=== PATIENT | female | born 1985 | race Caucasian/White ===

== ENCOUNTER 2023-04-30 09:03 | Emergency (ER) | payer OTHER, SELFPAY ==
[2023-04-30 09:09] VITALS: BP 135/97; PULSE 86; RESP 18; TEMP 36.6; O2SAT 97; BMI 37.3
--- NOTE | 2023-04-30 09:18 | XR_ITS ---
[facility] [id number] Patient Name: FITZ CASTRO MRN: [id number] date: 1985 Sex: F Assigned Patient Location: ER Current Patient Location: ED.MAIN Accession/Order Number: [id number] Exam Date: 04/30/2023 09:29 Report Date: 04/30/2023 09:57 At the request of: CARIDAD RAMIRES Procedure: XR forearm LT 2V PROCEDURE: XR elbow LT min 3V, XR forearm LT 2V COMPARISON: None. HISTORY: pain, fall FINDINGS: BONES:No fracture, acute abnormality, or significant arthropathy of the elbow or forearm. SOFT TISSUES:Anterior forearm and elbow soft tissue swelling EFFUSION:None visible. OTHER: Negative. XR/XR forearm LT 2V IMPRESSION: Posterior soft tissue swelling No acute fracture of the elbow or forearm Electronically authenticated by: AUSTYN HARRIS Date: 04/30/2023 09:57
--- NOTE | 2023-04-30 09:18 | XR_ITS ---
[facility] [id number] Patient Name: FITZ CASRTO MRN: [id number] date: 1985 Sex: F Assigned Patient Location: ER Current Patient Location: ED.MAIN Accession/Order Number: [id number] Exam Date: 04/30/2023 09:29 Report Date: 04/30/2023 09:57 At the request of: CARIDAD RAMIRES Procedure: XR elbow LT min 3V PROCEDURE: XR elbow LT min 3V, XR forearm LT 2V COMPARISON: None. HISTORY: pain, fall FINDINGS: BONES:No fracture, acute abnormality, or significant arthropathy of the elbow or forearm. SOFT TISSUES:Anterior forearm and elbow soft tissue swelling EFFUSION:None visible. OTHER: Negative. XR/XR elbow LT min 3V IMPRESSION: Posterior soft tissue swelling No acute fracture of the elbow or forearm Electronically authenticated by: AUSTYN HARRIS Date: 04/30/2023 09:57
--- NOTE | 2023-04-30 09:19 | ED_ITS ---
HPI - Extremity Injury (Upper) General Chief Complaint: Extremity Injury, Upper Stated Complaint: FELL INJURED L ARM Time Seen by Provider: 04/30/23 09:07 Source: patient Mode of arrival: walk-in History of Present Illness HPI narrative: 37-year-old female presents for pain in her left forearm. Several days ago she tripped and fell and hurt her arm. She points to the very proximal forearm area to indicate area of most pain and it hurts most to pronate her arm. Shoulder doesn't hurt and neither does her wrist. She didn't hit her head. She is right- handed. Related Data Previous Rx's Medication Instructions Recorded etodolac 400 mg tablet (Lodine) 400 mg PO Q12H PRN pain #20 tabs 04/30/23 Allergies Allergy/AdvReac Type Severity Reaction Status Date / Time No Known Drug Allergies Allergy Verified 04/30/23 09:11 Review of Systems ROS Narrative A ten point review of systems is negative except as noted above. Exam Narrative Exam Narrative: Nurses note and vital signs reviewed and patient is not hypoxic. General: The patient appears well and in no apparent distress. Patient is resting comfortably on cart. Skin: Warm, dry, no pallor noted. There is no rash noted. Head: Normocephalic, atraumatic Eye: Normal conjunctiva, no drainage Ears, Nose, Mouth, and Throat: oral mucosa is moist. Nares patent. Cardiovascular: Regular Rate and Rhythm Respiratory: Patient is in no distress, no accessory muscle use Back: non-tender GI: soft and nontender Musculoskeletal: left shoulder is nontender and has full range of motion. Left wrist nontender and has full range of motion. She has tenderness in the proximal forearm but there is no bruise or rash or abrasion. Fingers are not swollen. Radial pulse 2+. Sensation intact. Neurological: A&O, normal speech Psychiatric: Cooperative Constitutional Vital Signs, click to edit/add: Last Vital Signs Temp 97.8 F 04/30/23 09:09 Pulse 86 04/30/23 09:09 Resp 18 04/30/23 09:09 BP 135/97 H 04/30/23 09:09 Pulse Ox 97 04/30/23 09:09 O2 Del Method Room Air 04/30/23 09:09 Course Vital Signs Vital signs: Vital Signs Temperature 97.8 F 04/30/23 09:09 Pulse Rate 86 04/30/23 09:09 Respiratory Rate 18 04/30/23 09:09 Blood Pressure 135/97 H 04/30/23 09:09 Pulse Oximetry 97 04/30/23 09:09 Oxygen Delivery Method Room Air 04/30/23 09:09 Temperature 97.8 F 04/30/23 09:09 Pulse Rate 86 04/30/23 09:09 Respiratory Rate 18 04/30/23 09:09 Blood Pressure 135/97 H 04/30/23 09:09 Pulse Oximetry 97 04/30/23 09:09 Oxygen Delivery Method Room Air 04/30/23 09:09 MDM - Extremity Injury (Upper) MDM Narrative Medical decision making narrative: my clinical impressions that she has a muscle strain. Augustus wrap applied and application checked by me and found to be appropriate, she is neurovascularly intact. Treatment diagnosis and follow-up were discussed with the patient. Differential Diagnosis Differential diagnosis: Likely other (muscle strain, tendinitis, fracture) Imaging Data forearm and elbow x-rays: My impression: x-rays on my interpretation showed no acute findings Discharge Plan Discharge Chief Complaint: Extremity Injury, Upper Clinical Impression: Forearm strain Patient Disposition: Home, Self-Care Time of Disposition Decision: 09:54 Condition: Good Mode of Transportation: Private Vehicle Prescriptions / Home Meds: New etodolac [Lodine] 400 mg tablet 400 mg PO Q12H PRN (Reason: pain) Qty: 20 0RF Instructions: Muscle Strain (ED) Additional Instructions: follow-up with Dr. Ramos if no improvement Stand Alone Forms: Portal Instructions Referrals: Roselyn Ramirez NP [Primary Care Provider] - 1 week
== END 2023-04-30 10:08 | disposition home or self-care (01) ==
PROVIDERS: Emergency Provider Emergency Medicine; PCP Nurse Practitioner
DX: S56.912A Strain of unspecified muscles, fascia and tendons at forearm level, left arm, initial encounter (principal); W01.0XXA Fall on same level from slipping, tripping and stumbling without subsequent striking against object, initial encounter
CPT/HCPCS: 73080; 73090; 99284

== ENCOUNTER 2023-06-16 12:53 | Outpatient (OUT) | payer OTHER, SELFPAY ==
[2023-06-16 13:43] LABS: Basophils Absolute Auto 0.1 10^3/uL (0.0-0.1); Basophils Percent Auto 0.5 % (0.2-2.0); Eosinophils Absolute Auto 0.1 10^3/uL (0.0-0.7); Eosinophils Percent Auto 0.7 % (0.9-7.0); Hematocrit 40.1 % (36.0-48.0); Hemoglobin 13.4 g/dL (12.0-16.0); Immature Granulocytes Abs Auto 0.03 10^3/uL (0.00-0.03); Immature Granulocytes Pct Auto 0.3 % (0.0-0.5); Lymphocytes Absolute Auto 2.6 10^3/uL (1.2-3.8); Lymphocytes Percent Auto 27.9 % (20.5-60.0); Mean Corpuscular HGB Conc 33.4 g/dL (29.9-35.2); Mean Corpuscular Hemoglobin 30.4 pg (26.7-34.0); Mean Corpuscular Volume 90.9 fL (81.0-99.0); Mean Platelet Volume 12.1 fL (9.5-13.5); Monocytes Absolute Auto 0.5 10^3/uL (0.3-0.8); Monocytes Percent Auto 5.1 % (1.7-12.0); Neutrophils Absolute Auto 6.2 10^3/uL (1.4-6.5); Neutrophils Percent Auto 65.5 % (43.0-75.0); Platelet Count 273 10^3/uL (150-450); Red Blood Count 4.41 10^6/uL (4.20-5.40); Red Cell Distribution Width 12.6 % (11.0-15.0); White Blood Count 9.5 10^3/uL (4.0-11.0)
[2023-06-16 14:12] LABS: Bilirubin Urine NEGATIVE (NEGATIVE); Blood Urine NEGATIVE (NEGATIVE); Clarity Urine CLEAR (CLEAR); Color Urine YELLOW (YELLOW); Glucose Urine UA NEGATIVE (NEGATIVE); Ketones Urine NEGATIVE (NEGATIVE); Leukocyte Esterase Urine TRACE (NEGATIVE); Nitrite Urine POSITIVE (NEGATIVE); Protein Urine NEGATIVE (NEG/TRACE); Urobilinogen Urine 0.2 EU/dL (0.2-1.0)
[2023-06-16 14:17] LABS: Urine Microscopic Indicated YES
[2023-06-16 14:20] LABS: Bacteria Urine LARGE #/HPF (NONE SEEN); Cast Seen? NONE SEEN #/LPF (NONE SEEN); Crystals Seen? None Seen #/HPF (None Seen); Mucus Urine NONE SEEN (NONE SEEN); RBC Urine 0-2 #/HPF (0-2); Squamous Epithelial Cell Urine FEW #/LPF (NONE/RARE)
[2023-06-16 14:23] LABS: Creatinine Urine Random 111.02 mg/dL (20.00-300.00)
[2023-06-16 14:24] LABS: Estimated Average Glucose 111 mg/dL; Glycohemoglobin A1C 5.5 % (4.5-6.2)
[2023-06-16 14:37] LABS: Alanine Aminotransferase 22 U/L (14-59); Albumin Globulin Ratio 0.9; Albumin Level 3.6 g/dL (3.4-5.0); Alkaline Phosphatase 66 U/L (46-116); Anion Gap 13.3; Aspartate Amino Transferase 12 U/L (15-37); BUN Creatinine Ratio 20.3; Bilirubin Total 0.4 mg/dL (0.2-1.0); Calcium 8.8 mg/dL (8.5-10.1); Carbon Dioxide 27.3 mmol/L (21.0-32.0); Chloride 106 mmol/L (98-107); Chol HDL Ratio 2.6; Cholesterol 144 mg/dL (<=200); Estimated GFR (African America >60 (>=60); Estimated GFR (Non-African Ame >60 (>=60); Globulin 3.9 g/dL; Glucose 117 mg/dL (74-106); HDL Cholesterol 56 mg/dL (40-60); Potassium 3.6 mmol/L (3.5-5.1); Sodium 143 mmol/L (136-145); TSH W/ REFLEX FT4 0.865 uIU/mL (0.358-3.740); Total Protein 7.5 g/dL (6.4-8.2); Triglycerides 193 mg/dL (<=150); VLDL CHOLESTEROL 38.6 mg/dL
== END 2023-06-16 12:54 | disposition home or self-care (01) ==
LOC: LAB 12:54
PROVIDERS: PCP Nurse Practitioner; Visit Provider Nurse Practitioner
DX: E44.1 Mild protein-calorie malnutrition (principal); E11.9 Type 2 diabetes mellitus without complications; Z98.84 Bariatric surgery status; E06.3 Autoimmune thyroiditis
CPT/HCPCS: 36415; 80053; 80061; 81001; 82043; 82306; 82570; 82607; 83036; 84443; 85025

== ENCOUNTER 2024-05-25 11:13 | Outpatient (OUT) | payer OTHER, SELFPAY ==
--- OUTSIDE RECORDS SUMMARY | 2024-05-25 11:17 | XMS_ITS | CCD ---
Author Organization [facility] Care Team Providers Care Visitor Information Assistant Name Role Phone Ashley Roselyn Man Primary Care Provider [phone] Keyshawn Sims Attending Provider Alchholz, Roselyn Unavailable Aichholz PETER, Roselyn Alanis Primary Care Provider Carmen Jacob Unavailable Alchholz, Roselyn Unavailable Aichholz PETER, Roselyn Alanis Primary Care Provider Alchholz, Roselyn Unavailable Aichholz CORDWOOD CUTTER, Roselyn Alanis Primary Care Provider REAL BERGMAN Admitting Unavailable REAL BERGMAN Attending Unavailable AICHHOLZ, ROSELYN ALANIS Primary Care Unavailable MISC, DR GONZALEZ Admitting Unavailable MISC, DR GONZALEZ Attending Unavailable AICHHOLZ, CORDWOOD CUTTER ROSELYN Primary Care Unavailable DR AUSTYN HARRIS V Consulting Unavailable AYLEEN BARRIENTOS Consulting Unavailable AICHHOLZ, CORDWOOD CUTTER ROSELYN Admitting Unavailable AICHHOLZ, CORDWOOD CUTTER ROSELYN Attending Unavailable AICHHOLZ, CORDWOOD CUTTER ROSELYN Primary Care Unavailable AICHHOLZ, CORDWOOD CUTTER ROSELYN Consulting Unavailable MISC, DR GONZALEZ Admitting Unavailable MISC, DR GONZALEZ Attending Unavailable AICHHOLZ, CORDWOOD CUTTER ROSELYN Primary Care Unavailable MISC, DR GONZALEZ Consulting Unavailable MISMarky, DR GONZALEZ Admitting Unavailable MISC, DR GONZALEZ Attending Unavailable AICHHOLZ, CORDWOOD CUTTER ROSELYN Primary Care Unavailable SAMSA ., CAROL ANN Admitting Unavailable SAMSA ., CAROL ANN Attending Unavailable AICHHOLZ, CORDWOOD CUTTER ROSELYN Primary Care Unavailable DR SHILPA MACIEL Consulting Unavailable SAMSA ., CAROL ANN Consulting Unavailable AICHHOLZ, CORDWOOD CUTTER ROSELYN Admitting Unavailable AICHHOLZ, CORDWOOD CUTTER ROSELYN Attending Unavailable AICHHOLZ, CORDWOOD CUTTER ROSELYN Primary Care Unavailable AICHHOLZ, CORDWOOD CUTTER ROSELYN Consulting Unavailable AICHHOLZ, ROSELYN ALANIS Primary Care Unavailable NERIS JAMESON Attending Unavailable GUTOZIEL, REAL R Referring Unavailable AB, NEIDA Attending Unavailable AICHHOLZ, ROSELYN ALANIS Primary Care Unavailable GUTNICK, REAL R Referring Unavailable AB, NEIDA Referring Unavailable AICHHOLZ, ROSELYN ALANIS Primary Care Unavailable GUTNICK, REAL R Referring Unavailable AICHHOLZ, ROSELYN ALANIS Primary Care Unavailable GUTNICK, REAL R Referring Unavailable GUTNICK, REAL R Attending Unavailable AICHHOLZ, ROSELYN ALANIS Primary Care Unavailable GUTNICK, REAL R Referring Unavailable ASHLEYCARMEN WALKER Attending Unavailable AICHHOLZ, ROSELYN ALANIS Primary Care Unavailable GUTNICK, REAL R Referring Unavailable AICHHOLZ, ROSELYN ALANIS Primary Care Unavailable AICHHOLZ, ROSELYN ALANIS Primary Care Unavailable CARMEN RAMIREZ Attending Unavailable AB, NEIDA Attending Unavailable AICHHOLZ, ROSELYN ALANIS Primary Care Unavailable GUTNICK, REAL R Referring Unavailable AB, NEIDA Attending Unavailable AICHHOLZ, ROSELYN ALANIS Primary Care Unavailable GUTOZIEL, REAL R Referring Unavailable AICHHOLZ, ROSELYN Attending Unavailable CONCEPCION TADEO Attending Unavailable CONCEPCION TADEO Referring Unavailable CONCEPCION TADEO Attending Unavailable TIM DE LA ROSA Attending Unavailable CONCEPCION TADEO Referring Unavailable AICHHOLZ, ROSELYN Attending Unavailable Delon CHENG, Amish Primary Care Provider Aichholz NON DESTRUCTIVE TESTING SCIENTIST, Roselyn Unavailable Unavailable Unavailable Unavailable Medications Current Medications Medication Drug Class(es) Dates Sig (Normalized) Sig (Original) 24 hr metFORMIN hydrochloride 500 mg extended release oral tablet (20 sources) Biguanide Start: 07-17-2020 take 1000 mg by mouth twice daily Metformin Active 1000 MG PO Twice daily July 17, 2020 9:57am Start: 02-28-2020 take 1 tablet by david th twice daily at mealtime metFORMIN (GLUCOPHAGE) 1,000 mg tablet Take 1 tablet by mouth twice daily with meals. 60 tablet 0 02/28/2020 Active take 1 tablet by david th every twenty-four hours metFORMIN HCl 1000 MG 1 tablet with a meal Orally Once a day Active Comment on above: Take 1 tablet by david th twice daily with meals. phenazopyridine hydrochloride 200 mg oral tablet (1 source) Start: 2 take 1 tablet by mouth every eight hours Pyridium 200 MG 1 tablet after meals Orally Three times a day for 2 day(s) Apr, Active propranolol hydrochloride 40 mg oral tablet (20 sources) beta-Adrenergic Radha Start: 3 take 1 tablet by mouth in the morning propranolol (Inderal) 40 MG tablet Take 40 mg by mouth in the morning and 40 mg before bedtime. 08/25/2022 Active Start: 02-28-2020 take 1 tablet by david th three times daily propranolol (INDERAL) 20 mg tablet Take 1 tablet by mouth three times daily. 90 tablet 0 02/28/2020 Active take 1 tablet by david every twenty-four hours Propranolol HCl 10 MG 1 tablet Orally Once a day Active Comment on above: Take 1 tablet by david three times daily. sulfamethoxazole 800 mg / trimethoprim 160 mg oral tablet (1 source) Dihydrofolate Reductase Inhibitor Antibacterial, Sulfonamide Antimicrobial Start: 2 take 1 tablet by mouth every twelve hours Bactrim DS 800-160 MG 1 tablet Orally Twice a day for 10 day(s) Apr, Active Completed/Discontinued Medications Medication Drug Class(es) Dates Sig (Normalized) Sig (Original) acetaminophen 500 mg oral tablet (8 sources) Start: 03-21-2022 take 2 tablets by mouth every six hours as needed acetaminophen (TYLENOL) 500 mg tablet Take 2 tablets by mouth every 6 hours as needed for pain. 40 tablet 0 03/21/2022 Active Comment on above: Take 2 tablets by mo [facility] every 6 hours as needed for pain. amLODIPine 5 mg oral tablet (19 sources) Dihydropyridine Calcium Channel Radha take 1 tablet by mouth once daily at bedtime amLODIPine (NORVASC) 5 mg tablet Take 5 mg by mouth daily at bedtime. 0 Active Comment on above: Take 5 mg by mouth d aily at bedtime. docusate sodium 50 mg / sennosides, residential 8.6 mg oral tablet (7 sources) Start: 03-17-2022 take 1 tablet by mouth once daily senna-docusate (SENNA-S) 8.6-50 mg per tablet Indications: Morbid obesity (HCC) , Preoperative examination Take 1 tablet by mouth once daily. Do not take if you have diarrhea 30 tablet 0 03/17/2022 Active Comment on above: Take 1 tablet by david th once daily. Do not take if you have diarrhea hydrOXYzine pamoate 25 mg oral capsule (1 source) Antihistamine Start: 02-20-2020 End: 07-17-2020 take 1 capsule by mouth three times daily Hydroxyzine Pamoate (Vistaril) 25 mg Capsule Discontinued 25 MG PO Three times daily February 20, 2020 9:33pm July 17, 2020 9:57am metoprolol tartrate 50 mg oral tablet (1 source) beta-Adrenergic Radha Start: 02-20-2020 End: 07-17-2020 take 50 mg by mouth once daily Metoprolol Tartrate Discontinued 50 MG PO Daily February 20, 2020 9:33pm July 17, 2020 9:56am ondansetron 4 mg oral tablet (10 sources) Serotonin-3 Receptor Antagonist Start: 03-17-2022 End: 07-14-2022 take 1 tablet by mouth every eight hours as needed for nausea ondansetron (ZOFRAN) 4 mg tablet Indications: Morbid obesity (HCC) , Preoperative examination Take 1 tablet by mouth every 8 hours as needed for nausea/vomiting. 20 tablet 1 03/17/2022 07/14/2022 Discontinued (Course of therapy completed) Start: 02-21-2020 End: 07-17-2020 Ondansetron Discontinued 4 M G PO every 6 to 8 hours February 21, 2020 4:29am July 17, 2020 9:57am Comment on above: Take 1 tablet by david th every 8 hours as needed for nausea/vomiting. oxyCODONE hydrochloride 5 mg oral tablet (6 sources) Opioid Agonist Start: End: take 1 tablet by mouth every eight hours as needed for pain oxyCODONE IR (ROXICODONE) 5 mg immediate release tablet Indications: Morbid obesity (HCC) , Preoperative examination Take 1 tablet by mouth every 8 hours as needed for pain. 5 tablet 0 03/17/2022 03/31/2022 Discontinued (Course of therapy completed) Comment on above: Take 1 tablet by david th every 8 hours as needed for pain. pantoprazole 40 mg delayed release oral tablet (9 sources) Proton Pump Inhibitor Start: End: take 1 tablet by mouth once daily pantoprazole DR (PROTONIX) 40 mg tablet Indications: Morbid obesity (HCC) , Preoperative examination Take 1 tablet by mouth once daily. 90 tablet 0 03/17/2022 07/14/2022 Discontinued (Course of therapy completed) Comment on above: Take 1 tablet by david th once daily. ursodiol 300 mg oral capsule (3 sources) Bile Acid Start: End: take 1 capsule by mouth twice daily ursodiol (ACTIGALL) 300 mg capsule Take 1 capsule by mouth twice daily. 90 capsule 0 03/21/2022 03/31/2022 Discontinued (Course of therapy completed) Comment on above: Take 1 capsule by mo ut twice daily. Problems Active Problems Problem Classification Problem Date Documented Da te Episodic/Chronic Anxiety disorders (1 source) Generalized anxiety disorder; Translations: [Generalized anxiety disorder] Onset: 06-16-2023 06-16-2023 Chronic Complications of surgical procedures or medical care (5 sources) Post-surgical malabsorption; Translations: [Postsurgical malabsorption, not elsewhere classified] Onset: 08-28-2022 Chronic Diabetes mellitus with complications (4 sources) Type 2 diabetes mellitus in obese; Translations: [Type 2 diabetes mellitus with other specified complication] Onset: 03-22-2022 Chronic Diabetes mellitus without complication (1 source) Acute hyperglycemia; Translations: [Acute hyperglycemia] Episodic Essential hypertension (20 sources) Hypertensive disorder; Translations: [Essential (primary) hypertension] Onset: 02-25-2020 07-06-2021 Chronic Fluid and electrolyte disorders (1 source) Dehydration; Translations: [Dehydration] Episodic Headache; including migraine (1 source) Ophthalmic migraine; Translations: [Migraine with aura, not intractable, without status migrainosus] Onset: 06-16-2023 06-16-2023 Chronic Nutritional deficiencies (20 sources) Deficiency of macronutrients; Translations: [Mild protein-calorie malnutrition] Onset: 02-27-2020 02-28-2020 Chronic Other aftercare (1 source) Surgical follow-up; Translations: [Encounter for surgical aftercare following surgery on the digestive system] Episodic Other liver diseases (1 source) Fatty (change of) liver, not elsewhere classified; Translations: [FATTY CHANGE LIVER NEC] Onset: 03-22-2022 Chronic Other liver diseases (1 source) Steatosis of liver; Translations: [Fatty (change of) liver, not elsewhere classified] Onset: 06-16-2023 06-16-2023 Chronic Other nutritional; endocrine; and metabolic disorders (20 sources) Morbid obesity; Translations: [Morbid (severe) obesity due to excess calories] Onset: 05-08-2021 05-08-2021 Chronic Other nutritional; endocrine; and metabolic disorders (11 sources) Body mass index 40+ - severely obese; Translations: [Morbid (severe) obesity due to excess calories] Onset: 03-17-2022 Chronic Other nutritional; endocrine; and metabolic disorders (4 sources) Morbid (severe) obesity due to excess calories; Translations: [Morbid obesity (HCC)] Onset: 05-08-2021 Chronic Other nutritional; endocrine; and metabolic disorders (4 sources) Severe obesity; Translations: [Morbid (severe) obesity due to excess calories] Onset: 03-17-2022 Chronic Other nutritional; endocrine; and metabolic disorders (1 source) Obesity, unspecified; Translations: [Diabetes mellitus type 2 in obese (HCC)] Onset: 04-04-2022 Chronic Other nutritional; endocrine; and metabolic disorders (1 source) Obesity caused by energy imbalance; Translations: [Morbid (severe) obesity due to excess calories] Onset: 05-08-2021 05-25-2024 Chronic Other nutritional; endocrine; and metabolic disorders (2 sources) Body mass index 30+ - obesity; Translations: [Body mass index (BMI) 38.0-38.9, adult] Onset: 06-15-2023 Resolved: 10-12-2023 05-25-2024 Chronic Other nutritional; endocrine; and metabolic disorders (1 source) History of diabetes mellitus type 2; Translations: [Personal history of other endocrine, nutritional and metabolic disease] Onset: 05-25-2024 05-25-2024 Episodic Pneumonia (except that caused by tuberculosis or sexually transmitted disease) (1 source) Pneumonia (except that caused by tuberculosis or sexually transmitted disease); Translations: [PNEUMONIA D/T CORONAVIRUS DIS 2019] Onset: 10-11-2021 Thyroid disorders (20 sources) Sarbjit thyroiditis; Translations: [Autoimmune thyroiditis] Onset: 02-25-2020 02-28-2020 Chronic Viral infection (4 sources) COVID-19; Translations: [COVID-19] Onset: 10-09-2021 Past or Other Problems Problem Classification Problem Date Documented Da te Episodic/Chronic Administrative/social admission (4 sources) Patient encounter status; Translations: [Dietary counseling and surveillance] Onset: 04-04-2022 Episodic Biliary tract disease (1 source) Calculus of gallbladder without cholecystitis without obstruction; Translations: [CALCU GB W/O CHOLECYST W/O OBST] Onset: 03-22-2022 Episodic Calculus of urinary tract (20 sources) Kidney stone; Translations: [Calculus of kidney] Onset: 05-20-2021 05-22-2021 Episodic Cardiac dysrhythmias (20 sources) Sinus tachycardia; Translations: [Postural orthostatic tachycardia syndrome ] Onset: 02-25-2020 Resolved: 06-15-2023 02-28-2020 Chronic Cardiac dysrhythmias (20 sources) Tachycardia; Translations: [Tachycardia, unspecified] Onset: 02-25-2020 02-28-2020 Episodic Diabetes mellitus without complication (20 sources) Type 2 diabetes mellitus; Translations: [Type 2 diabetes mellitus without complications] Onset: 02-25-2020 Resolved: 10-12-2023 07-06-2021 Chronic Genitourinary symptoms and ill-defined conditions (1 source) Dysuria Onset: 05-04-2021 Resolved: 05-04-2021 Episodic Lymphadenitis (1 source) Localized enlarged lymph nodes; Translations: [LOCALIZED ENLARGED LYMPH NODES] Onset: 10-11-2021 Episodic Mycoses (1 source) Candidiasis of vagina; Translations: [Yeast infection of the vagina] Onset: 09-28-2023 09-28-2023 Episodic Other connective tissue disease (1 source) Bursitis of right shoulder; Translations: [Bursitis of right shoulder] Onset: 06-15-2023 06-15-2023 Episodic Other connective tissue disease (1 source) Impingement syndrome of right shoulder region; Translations: [Impingement syndrome of right shoulder] Onset: 07-16-2023 07-16-2023 Episodic Other gastrointestinal disorders (12 sources) History of sleeve gastrectomy; Translations: [Bariatric surgery status] Onset: 03-31-2022 Episodic Other gastrointestinal disorders (2 sources) Bariatric surgery status; Translations: [BARIATRIC SURGERY STATUS] Onset: 03-31-2022 Episodic Other hematologic conditions (1 source) Elevated erythrocyte sedimentation rate; Translations: [ELEVATED ERYTHROCYTE SED RATE] Onset: 05-25-2022 Episodic Other inflammatory condition of skin (1 source) Granuloma annulare; Translations: [Granuloma annulare] Onset: 06-16-2023 06-16-2023 Episodic Other liver diseases (1 source) Liver mass; Translations: [Hepatomegaly, not elsewhere classified] Onset: 06-16-2023 06-16-2023 Episodic Other lower respiratory disease (1 source) Other nonspecific abnormal finding of lung field; Translations: [OTH NONSPECIFIC ABN FIND LNG FIELD] Onset: 10-11-2021 Episodic Other lower respiratory disease (1 source) Multiple nodules of lung; Translations: [Other nonspecific abnormal finding of lung field] Onset: 06-16-2023 06-16-2023 Episodic Other upper respiratory infections (1 source) Acute maxillary sinusitis; Translations: [Acute maxillary sinusitis, unspecified] Onset: 10-12-2023 Resolved: 05-25-2024 05-25-2024 Episodic Residual codes; unclassified (1 source) Sleep disorder, unspecified; Translations: [SLEEP DISORDER UNSPECIFIED] Onset: 03-22-2022 Episodic Urinary tract infections (1 source) Acute cystitis with hematuria Onset: 05-04-2021 Resolved: 05-04-2021 Episodic Viral infection (20 sources) Disease caused by 2019-nCoV; Translations: [COVID-19] Onset: 02-25-2020 02-28-2020 Episodic Results Test Name Value Interpretation Reference Range Facility VITAMIN B1 (THIAMINE)on 08-18 Vit. B1, Whole Blood 174.7 nmol/L Normal 66.5-200.0 [facility] Comment on above: Performed By: #### M ALBR #### [facility] [address] [place], [place] [address] Dr. Anita Mckeon PTH INTACTon 08-29-2022 PTH, Intact 19 pg/mL Normal 15-65 [facility] Comment on above: Performed By: #### P THINT #### [facility] [address] [place] [address] Dr. Anita Mckeon CBC AUTO DIFFon 08-28-2022 BASO # 0.0 103/ul Normal 0.0-0.1 [facility] Comment on above: Performed By: #### P THINT #### [facility] [address] [place] [address] Dr. Anita Mckeon Basophils/100 WBC (Bld) 0.4 % Normal 0.2-2.0 [facility] Comment on above: Performed By: #### P THINT #### [facility] [address] [place] [address] Dr. Anita Mckeon EO # 0.1 103/ul Normal 0.0-0.7 [facility] Comment on above: Performed By: #### P THINT #### [facility] [address] [place] [address] Dr. Anita Mckeon Eosinophils/100 WBC (Bld) 0.9 % Normal 0.9-7.0 [facility] Comment on above: Performed By: #### P THINT #### [facility] [address] [place] [address] Dr. Anita Mckeon Erythrocyte distribution width (RBC) [Ratio] 13.2 % Normal 11.0-15.0 [facility] Comment on above: Performed By: #### P THINT #### [facility] [address] [place] [address] Dr. Anita Mckeon Hematocrit (Bld) [Volume fraction] 42.4 % Normal 36.0-48.0 [facility] Comment on above: Performed By: #### P THINT #### [facility] [address] [place] [address] Dr. Anita Mckeon Hemoglobin (Bld) [Mass/Vol] 14.4 g/dL Normal 12.0-16.0 [facility] Comment on above: Performed By: #### P THINT #### [facility] [address] [place] [address] Dr. Anita Mckoen IG # 0.03 10e3/ul Normal 0.00-0.03 [facility] Comment on above: Performed By: #### P THINT #### [facility] [address] [place] [address] Dr. Anita Mckeon IG % 0.3 % Normal 0.0-0.5 [facility] Comment on above: Performed By: #### P THINT #### [facility] [address] [place] [address] Dr. Anita Mckeon LYMPH # 3.2 103/ul Normal 1.2-3.8 [facility] Comment on above: Performed By: #### P THINT #### [facility] [address] [place] [address] Dr. Anita Mckeon Lymphocytes/100 WBC (Bld) 31.3 % Normal 20.5-60.0 [facility] Comment on above: Performed By: #### P THINT #### [facility] [address] [place] [address] Dr. Anita Mckeon MANUAL DIFF REQ NO Normal [facility] Comment on above: Performed By: #### P THINT #### [facility] [address] [place] [address] Dr. Anita Mckeon MCH (RBC) [Entitic mass] 31.0 pg Normal 26.7-34.0 [facility] Comment on above: Performed By: #### P THINT #### [facility] [address] [place] [address] Dr. Anita Mckeon MCHC (RBC) [Mass/Vol] 34.0 g/dL Normal 29.9-35.2 [facility] Comment on above: Performed By: #### P THINT #### [facility] [address] [place] [address] Dr. Anita Mckeon MCV (RBC) [Entitic vol] 91.4 fL Normal 81.0-99.0 [facility] Comment on above: Performed By: #### P THINT #### [facility] [address] [place] [address] Dr. Anita Mckeon MONO # 0.4 103/ul Normal 0.3-0.8 [facility] Comment on above: Performed By: #### P THINT #### [facility] [address] [place] [address] Dr. Anita Mckeon Monocytes/100 WBC (Bld) 3.9 % Normal 1.7-12.0 [facility] Comment on above: Performed By: #### P THINT #### [facility] [address] [place] [address] Dr. Anita Mckeon NEUT # 6.6 103/ul Critically high 1.4-6.5 [facility] Comment on above: Performed By: #### P THINT #### [facility] [address] [place] [address] Dr. Anita Mckeon Neutrophils/100 WBC (Bld) 63.2 % Normal 43.0-75.0 [facility] Comment on above: Performed By: #### P THINT #### [facility] [address] [place] [address] Dr. Anita Mckeon Platelet mean volume (Bld) [Entitic vol] 11.8 fL Normal 9.5-13.5 [facility] Comment on above: Performed By: #### P THINT #### [facility] [address] [place] [address] Dr. Anita Mckeon PLT 329 103/ul Normal 150-450 [facility] Comment on above: Performed By: #### P THINT #### [facility] [address] [place] [address] Dr. Anita Mckeon RBC 4.64 106/ul Normal 4.20-5.40 [facility] Comment on above: Performed By: #### P THINT #### [facility] [address] [place] [address] Dr. Anita Mckeon WBC 10.4 103/ul Normal 4.0-11.0 [facility] Comment on above: Performed By: #### P THINT #### [facility] [address] [place] [address] Dr. Anita Sadler 08-28-2022 VANESSA Telephone ([id number]) JOHANNA CASTRO ([id number]) 1985 F [employer] Date Time Provider Department 08/28/22 REAL BERGMAN [id number] During your visit today, we recorded the following information about you: Yessy Wagner 08/28/2022 3:37 PM Signed Received Misc. Labs dated 08/28/2022 from [facility] . Please review, thank you! Yessy Wagner 08/29/2022 3:40 PM Signed Received updated labs from [facility] , 08/28/2022, please review. Thank You!i Yessy Wagner 09/02/2022 10:11 AM Signed Received Vit B1 Whole Blood result from [facility] dated 08/28/2022. Please review! Allergies As of Date: 08/28/2022 (No Known Allergies) Date Reviewed: 07/14/2022 Reviewed by: Neida Gaines APRN.CORDWOOD CUTTER - Fully Assessed Reason for Visit: Misc. Labs [facility] [Other] Prescriptions as of 02/09/2023 - acetaminophen (TYLENOL) 500 mg tablet Take 2 tablets by mouth every 6 hours as needed for pain. - amLODIPine (NORVASC) 5 mg tablet Take 5 mg by mouth daily at bedtime. - propranolol (INDERAL) 20 mg tablet Take 1 tablet by mouth three times daily. - metFORMIN (GLUCOPHAGE) 1,000 mg tablet Take 1 tablet by mouth twice daily with meals. Problem List As Of Date 08/28/2022 Noted Resolved HTN (hypertension) [I10] 02/25/2020 Type 2 diabetes mellitus (HCC) [E11.9] 02/25/2020 Sarbjit's thyroiditis [E06.3] 02/25/2020 COVID-19 [U07.1] 02/25/2020 POTS (postural orthostatic tachycardia syndrome*02/25/2020 Tachycardia [R00.0] 02/25/2020 Mild protein-calorie malnutrition (HCC) [E44.1] 02/27/2020 Morbid obesity (HCC) [E66.01] 05/08/2021 Renal calculus, left [N20.0] 05/20/2021 Class 2 severe obesity with serious comorbidity*03/17/2022 S/P laparoscopic sleeve gastrectomy [Z98.84] 03/31/2022 Encounter Status:Closed by YESSY WAGNER on 02/09/23 [facility] FERRITINon 08-28-2022 Ferritin [Mass/Vol] 70.0 ng/mL Normal 6.2-137.0 [facility] Comment on above: Performed By: #### P THINT #### [facility] [address] [place] [address] Dr. Anita Mckeon GLYCOHEMOGLOBIN A1Con 2022 ADA RECOMMENDATION SEE BELOW Normal [facility] Comment on above: Result Comment: ADA RECOMMENDED LIMIT 4.0 - 6.0 ADA THERAPEUTIC TARGET < 7.0 ACTION SUGGESTED > 7.0 Performed By: #### M ALBR #### [facility] [address] [place] [address] [address] Anita Mckeon Glucose [Mass/Vol] 94 mg/dL Normal [facility] Comment on above: Performed By: #### M ALBR #### [facility] [address] [place] [address] Dr. Anita Mckeon HbA1c (Bld) [Mass fraction] 4.9 % Normal 4.5-6.2 [facility] Comment on above: Performed By: #### M ALBR #### [facility] [address] [place] [address] [address] Anita Mckeon IRON AND TIBCon 08-28-2022 % SATURATION 16.0 % Normal [facility] Comment on above: Performed By: #### P THINT #### [facility] [address] [place] [address] Dr. Anita Mckeon Iron [Mass/Vol] 54.0 ug/dL Normal 50.0-170.0 [facility] Comment on above: Performed By: #### P THINT #### [facility] [address] [place] [address] Dr. Anita Mckeon TIBC DIRECT 338.0 ug/dL Normal 250.0-450.0 [facility] Comment on above: Performed By: #### P THINT #### [facility] [address] [place] [address] Dr. Anita Mckeon PROF 14(COMP METB)on 023 Albumin [Mass/Vol] 4.1 g/dL Normal 3.4-5.0 [facility] Comment on above: Performed By: #### C MP #### [facility] [address] [place] [address] Dr. Anita Mckeon Albumin/Globulin [Mass ratio] 1.1 {ratio} Normal [facility] Comment on above: Performed By: #### C MP #### [facility] [address] [place] [address] Dr. Anita Mckeon ALP [Catalytic activity/Vol] 62 U/L Normal 46-116 [facility] Comment on above: Performed By: #### C MP #### [facility] [address] [place] [address] Dr. Anita Mckeon ALT [Catalytic activity/Vol] 30 U/L Normal 14-59 [facility] Comment on above: Performed By: #### C MP #### [facility] [address] [place] [address] Dr. Anita Mckeon Anion gap [Moles/Vol] 14.5 mmol/L Normal [facility] Comment on above: Performed By: #### C MP #### [facility] [address] [place] [address] Dr. Anita Mckeon AST [Catalytic activity/Vol] 17 U/L Normal 15-37 [facility] Comment on above: Performed By: #### C MP #### [facility] [address] [place] [address] Dr. Anita cMkeon Bilirubin [Mass/Vol] 0.7 mg/dL Normal 0.2-1.0 [facility] Comment on above: Performed By: #### C MP #### [facility] [address] [place] [address] Dr. Anita Mckeon Calcium [Mass/Vol] 9.4 mg/dL Normal 8.5-10.1 [facility] Comment on above: Performed By: #### C MP #### [facility] [address] [address] [address] Anita Mckeon Chloride [Moles/Vol] 106 mmol/L Normal 98-107 [facility] Comment on above: Performed By: #### C MP #### [facility] [address] [address] [address] Anita Mckeon CO2 [Moles/Vol] 23.4 mmol/L Normal 21.0-32.0 [facility] Comment on above: Performed By: #### C MP #### [facility] [address] [address] [address] Anita Mckeon Creatinine [Mass/Vol] 0.87 mg/dL Normal 0.55-1.02 [facility] Comment on above: Performed By: #### C MP #### [facility] [address] [place] [address] Dr. Anita Mckeon EGFR-AF ALGERIAN >60 Normal >=60 [facility] Comment on above: Performed By: #### C MP #### [facility] [address] [place] [address] Dr. Anita Mckeon EGFR-NON AF ALGERIAN >60 Normal >=60 [facility] Comment on above: Performed By: #### C MP #### [facility] [address] [place] [address] Dr. Anita Mckeon Globulin (S) [Mass/Vol] 3.8 g/dL Normal [facility] Comment on above: Performed By: #### C MP #### [facility] [address] [place] [address] Dr. Anita Mckeon Glucose [Mass/Vol] 99 mg/dL Normal 74-106 [facility] Comment on above: Performed By: #### C MP #### [facility] [address] [place] [address] Dr. Anita Mckeon Potassium [Moles/Vol] 3.9 mmol/L Normal 3.5-5.1 [facility] Comment on above: Performed By: #### C MP #### [facility] [address] [address] [address] Anita Mckeon Protein [Mass/Vol] 7.9 g/dL Normal 6.4-8.2 [facility] Comment on above: Performed By: #### C MP #### [facility] [address] [place] [address] Dr. Anita Mckeon Sodium [Moles/Vol] 140 mmol/L Normal 136-145 [facility] Comment on above: Performed By: #### C MP #### [facility] [address] [address] [address] Anita Mckeon Urea nitrogen [Mass/Vol] 17.0 mg/dL Normal 7.0-18.0 [facility] Comment on above: Performed By: #### C MP #### [facility] [address] [place] [address] Dr. Anita Mckeon Urea nitrogen/Creatinin e [Mass ratio] 19.5 mg/mg Normal [facility] Comment on above: Performed By: #### C MP #### [facility] [address] [place] [address] Dr. Anita Mckeon VIT B12 AND FOLATEon 023 Cobalamin (Vitamin B12) [Mass/Vol] 1177.0 pg/mL Critically high 193.0-986.0 [facility] Comment on above: Performed By: #### P THINT #### [facility] [address] [place] [address] Dr. Anita Mckeon FOLATE 22.80 ng/mL Normal 8.60-58.90 [facility] Comment on above: Performed By: #### P THINT #### [facility] [address] [place] [address] Dr. Anita Mckeon VITAMIN D 25 OHon 08-28-2022 VIT D 25-OH 67.2 ng/mL Normal [facility] Comment on above: Performed By: #### P THINT #### [facility] [address] [place] [address] Dr. Anita Mckeon VIT D RANGES SEE BELOW Normal [facility] Comment on above: Result Comment: <20 ng/mL Vit D deficient 20 - <30 ng/mL Vit D insufficient 30 - 100 ng/mL Vit D sufficient >100 ng/mL Potential Toxicity Performed By: #### P THINT #### [facility] [address] [place] [address] Dr. Anita Mckeon CBC AUTO DIFFon 05-22-2022 BASO # 0.1 103/ul Normal 0.0-0.1 [facility] Comment on above: Performed By: #### C BC #### [facility] [address] [place] [address] Dr. Anita Mckeon Basophils/100 WBC (Bld) 0.6 % Normal 0.2-2.0 [facility] Comment on above: Performed By: #### C BC #### [facility] [address] [place] [address] Dr. Anita Mckeon EO # 0.1 103/ul Normal 0.0-0.7 [facility] Comment on above: Performed By: #### C BC #### [facility] [address] [place] [address] Dr. Anita Mckeon Eosinophils/100 WBC (Bld) 0.9 % Normal 0.9-7.0 [facility] Comment on above: Performed By: #### C BC #### [facility] [address] [place] [address] Dr. Anita Mckeon Erythrocyte distribution width (RBC) [Ratio] 12.9 % Normal 11.0-15.0 [facility] Comment on above: Performed By: #### C BC #### [facility] [address] [place] [address] Dr. Anita Mckeon Hematocrit (Bld) [Volume fraction] 43.4 % Normal 36.0-48.0 [facility] Comment on above: Performed By: #### C BC #### [facility] [address] [place] [address] Dr. Anita Mckeon Hemoglobin (Bld) [Mass/Vol] 14.1 g/dL Normal 12.0-16.0 [facility] Comment on above: Performed By: #### C BC #### [facility] [address] [place] [address] Dr. Anita Mckeon IG # 0.03 10e3/ul Normal 0.00-0.03 [facility] Comment on above: Performed By: #### C BC #### [facility] [address] [place] [address] Dr. Anita Mckeon IG % 0.3 % Normal 0.0-0.5 [facility] Comment on above: Performed By: #### C BC #### [facility] [address] [place] [address] Dr. Anita Mckeon LYMPH # 2.5 103/ul Normal 1.2-3.8 [facility] Comment on above: Performed By: #### C BC #### [facility] [address] [place] [address] Dr. Anita Mckeon Lymphocytes/100 WBC (Bld) 28.8 % Normal 20.5-60.0 [facility] Comment on above: Performed By: #### C BC #### [facility] [address] [place] [address] Dr. Anita Mckeon MANUAL DIFF REQ NO Normal [facility] Comment on above: Performed By: #### C BC #### [facility] [address] [place] [address] Dr. Anita Mckeon MCH (RBC) [Entitic mass] 30.9 pg Normal 26.7-34.0 [facility] Comment on above: Performed By: #### C BC #### [facility] [address] [place] [address] Dr. Anita Mckeon MCHC (RBC) [Mass/Vol] 32.5 g/dL Normal 29.9-35.2 [facility] Comment on above: Performed By: #### C BC #### [facility] [address] [place] [address] Dr. Anita Mckeon MCV (RBC) [Entitic vol] 95.0 fL Normal 81.0-99.0 [facility] Comment on above: Performed By: #### C BC #### [facility] [address] [place] [address] Dr. Anita Mckeon MONO # 0.4 103/ul Normal 0.3-0.8 [facility] Comment on above: Performed By: #### C BC #### [facility] [address] [place] [address] Dr. Anita Mckeon Monocytes/100 WBC (Bld) 4.2 % Normal 1.7-12.0 [facility] Comment on above: Performed By: #### C BC #### [facility] [address] [place] [address] Dr. Anita Mckeon NEUT # 5.7 103/ul Normal 1.4-6.5 [facility] Comment on above: Performed By: #### C BC #### [facility] [address] [place] [address] Dr. Anita Mckeon Neutrophils/100 WBC (Bld) 65.2 % Normal 43.0-75.0 [facility] Comment on above: Performed By: #### C BC #### [facility] [address] [place] [address] Dr. Anita Mckeon Platelet mean volume (Bld) [Entitic vol] 11.8 fL Normal 9.5-13.5 [facility] Comment on above: Performed By: #### C BC #### [facility] [address] [place] [address] Dr. Anita Mckeon PLT 303 103/ul Normal 150-450 [facility] Comment on above: Performed By: #### C BC #### [facility] [address] [place] [address] Dr. Anita Mckeon RBC 4.57 106/ul Normal 4.20-5.40 [facility] Comment on above: Performed By: #### C BC #### [facility] [address] [place] [address] Dr. Anita Mckeon WBC 8.8 103/ul Normal 4.0-11.0 [facility] Comment on above: Performed By: #### C BC #### [facility] [address] [place] [address] Dr. Anita Mckeon CRPon 05-22-2022 CRP [Mass/Vol] mg/L Normal <=1.0 [facility] Comment on above: Performed By: #### M ALBR #### [facility] [address] [place] [address] Dr. Anita Mckeon FREE T4on 05-22-2022 Free T4 [Mass/Vol] 1.33 ng/dL Normal 0.76-1.46 [facility] Comment on above: Performed By: #### A 1C #### [facility] [address] [place] [address] Dr. Anita Mckeon GLYCOHEMOGLOBIN A1Con 2022 ADA RECOMMENDATION SEE BELOW Normal [facility] Comment on above: Result Comment: ADA RECOMMENDED LIMIT 4.0 - 6.0 ADA THERAPEUTIC TARGET < 7.0 ACTION SUGGESTED > 7.0 Performed By: #### A 1C #### [facility] [address] [place] [address] Dr. Anita Mckeon Glucose [Mass/Vol] 114 mg/dL Normal [facility] Comment on above: Performed By: #### A 1C #### [facility] [address] [place] [address] Dr. Anita Mckeon HbA1c (Bld) [Mass fraction] 5.6 % Normal 4.5-6.2 [facility] Comment on above: Performed By: #### A 1C #### [facility] [address] [place] [address] Dr. Anita Mckeon IRONon 05-22-2022 Iron [Mass/Vol] 70.0 ug/dL Normal 50.0-170.0 [facility] Comment on above: Performed By: #### P THINT #### [facility] [address] [place] [address] Dr. Anita Mckeon LIPID PROFILEon 05-22-2022 CHOL-HDL RATIO NORM SEE BELOW Normal [facility] Comment on above: Result Comment: 3.3 - 4.4 LOW RISK 4.4 - 7.1 AVERAGE RISK 7.1 - 11.0 MODERATE RISK >11.0 HIGH RISK Performed By: #### M ALBR #### [facility] [address] [place] [address] Dr. Anita Mckeon Cholesterol [Mass/Vol] 134 mg/dL Normal <=200 [facility] Comment on above: Performed By: #### M ALBR #### [facility] [address] [address] [address] Anita Mckeon Cholesterol in HDL [Mass/Vol] 36 mg/dL Critically low 40-60 [facility] Comment on above: Performed By: #### M ALBR #### [facility] [address] [address] [address] Anita Mckeon Cholesterol in LDL [Mass/Vol] 59.2 mg/dL Normal [facility] Comment on above: Performed By: #### M ALBR #### [facility] [address] [address] [address] Anita Mckeon Cholesterol.total/ Cholesterol in HDL [Mass ratio] 3.7 {ratio} Normal [facility] Comment on above: Performed By: #### M ALBR #### [facility] [address] [address] [address] Anita Mckeon HDL NORMAL > or = 60 mg/dl - LO W CARDIOVASCULAR RISK <40 mg/dl - HIGH CARDIOVASCULAR RISK Normal [facility] Comment on above: Performed By: #### M ALBR #### [facility] [address] [address] [address] Anita Mckeon LDL CALC NORMAL SEE BELOW Normal [facility] Comment on above: Result Comment: <100 mg/dl OPTIMAL 100 - 129 mg/dl NEAR OR ABOVE OPTIMAL 130 - 159 mg/dl BORDERLINE HIGH 160 - 189 mg/dl HIGH >190 mg/dl VERY HIGH Performed By: #### M ALBR #### [facility] [address] [address] [address] Anita Mckeon Triglyceride [Mass/Vol] 194 mg/dL Critically high <=150 [facility] Comment on above: Performed By: #### M ALBR #### [facility] [address] [address] [address] Anita Mckeon VLDL CALC 38.8 mg/dL Normal [facility] Comment on above: Performed By: #### M ALBR #### [facility] [address] [address] [address] Anita Mckeon MICROALBUMIN, RAND URon 02-0 3 mALB 7.6 mg/L Normal <=30.0 [facility] Comment on above: Performed By: #### M ALBR #### [facility] [address] [place] [address] Dr. Anita Mckeon PROF 14(COMP METB)on 023 Albumin [Mass/Vol] 4.0 g/dL Normal 3.4-5.0 [facility] Comment on above: Performed By: #### M ALBR #### [facility] [address] [place] [address] Dr. Anita Mckeon Albumin/Globulin [Mass ratio] 1.2 {ratio} Normal [facility] Comment on above: Performed By: #### M ALBR #### [facility] [address] [place] [address] Dr. Anita Mckeon ALP [Catalytic activity/Vol] 66 U/L Normal 46-116 [facility] Comment on above: Performed By: #### M ALBR #### [facility] [address] [place] [address] Dr. Anita Mckeon ALT [Catalytic activity/Vol] 33 U/L Normal 14-59 [facility] Comment on above: Performed By: #### M ALBR #### [facility] [address] [place] [address] Dr. Anita Mckeon Anion gap [Moles/Vol] 14.0 mmol/L Normal [facility] Comment on above: Performed By: #### M ALBR #### [facility] [address] [place] [address] Dr. Anita Mckeon AST [Catalytic activity/Vol] 17 U/L Normal 15-37 [facility] Comment on above: Performed By: #### M ALBR #### [facility] [address] [place] [address] Dr. Anita Mckeon Bilirubin [Mass/Vol] 0.6 mg/dL Normal 0.2-1.0 [facility] Comment on above: Performed By: #### M ALBR #### [facility] [address] [place] [address] Dr. Anita Mckeon Calcium [Mass/Vol] 9.3 mg/dL Normal 8.5-10.1 [facility] Comment on above: Performed By: #### M ALBR #### [facility] [address] [place] [address] Dr. Anita Mckeon Chloride [Moles/Vol] 104 mmol/L Normal 98-107 [facility] Comment on above: Performed By: #### M ALBR #### [facility] [address] [place] [address] Dr. Anita Mckeon CO2 [Moles/Vol] 27.8 mmol/L Normal 21.0-32.0 [facility] Comment on above: Performed By: #### M ALBR #### [facility] [address] [place] [address] Dr. Anita Mckeon Creatinine [Mass/Vol] 0.86 mg/dL Normal 0.55-1.02 [facility] Comment on above: Performed By: #### M ALBR #### [facility] [address] [place] [address] Dr. Anita Mckeon EGFR-AF ALGERIAN >60 Normal >=60 [facility] Comment on above: Performed By: #### M ALBR #### [facility] [address] [place] [address] Dr. Anita Mckeon EGFR-NON AF ALGERIAN >60 Normal >=60 [facility] Comment on above: Performed By: #### M ALBR #### [facility] [address] [place] [address] Dr. Anita Mckeon Globulin (S) [Mass/Vol] 3.4 g/dL Normal [facility] Comment on above: Performed By: #### M ALBR #### [facility] [address] [place] [address] Dr. Anita Mckeon Glucose [Mass/Vol] 152 mg/dL Critically high 74-106 [facility] Comment on above: Performed By: #### M ALBR #### [facility] [address] [place] [address] Dr. Anita Mckeon Potassium [Moles/Vol] 3.8 mmol/L Normal 3.5-5.1 [facility] Comment on above: Performed By: #### M ALBR #### [facility] [address] [address] [address] Anita Mckeon Protein [Mass/Vol] 7.4 g/dL Normal 6.4-8.2 [facility] Comment on above: Performed By: #### M ALBR #### [facility] [address] [place] [address] Dr. Anita Mckeon Sodium [Moles/Vol] 142 mmol/L Normal 136-145 [facility] Comment on above: Performed By: #### M ALBR #### [facility] [address] [place] [address] Dr. Anita Mckeon Urea nitrogen [Mass/Vol] 10.0 mg/dL Normal 7.0-18.0 [facility] Comment on above: Performed By: #### M ALBR #### [facility] [address] [place] [address] Dr. Anita Mckeon Urea nitrogen/Creatinin e [Mass ratio] 11.6 mg/mg Normal [facility] Comment on above: Performed By: #### M ALBR #### [facility] [address] [place] [address] Dr. An[facility] mm/hr Critically high <=20 [facility] Comment on above: Performed By: #### P THINT #### [facility] [address] [place] [address] Dr. Anita Mckeon TSHon 05-22-2022 TSH 1.505 uIU/mL Normal 0.358-3.740 [facility] Comment on above: Performed By: #### M ALBR #### [facility] [address] [place] [address] Dr. Anita Mckeon UA RANDOM W/MICROSCOPICon BACTERIA TRACE Abnormal NONE SEEN [facility] Comment on above: Performed By: #### P THINT #### [facility] [address] [place] [address] Dr. Anita Mckeon Bilirubin Ql (U) SMALL Abnormal NEGATIVE [facility] Comment on above: Performed By: #### P THINT #### [facility] [address] [address] [address] Anita Mckeon CAST NONE SEEN Normal NONE SEEN [facility] Comment on above: Performed By: #### P THINT #### [facility] [address] [address] [address] Anita Mckeon Clarity (U) CLEAR Normal CLEAR [facility] Comment on above: Performed By: #### P THINT #### [facility] [address] [address] [address] Anita Mckeon Color (U) DK. YELLOW Normal YELLOW [facility] Comment on above: Performed By: #### P THINT #### [facility] [address] [place] [address] Dr. Anita Mckeon Crystals LM Nom (Urine sed) NONE SEEN Normal NONE SEEN [facility] Comment on above: Performed By: #### P THINT #### [facility] [address] [place] [address] Dr. Anita Mckeon Epithelial cells LM Ql (Urine sed) FEW Abnormal NONE SEEN /RARE [facility] Comment on above: Performed By: #### P THINT #### [facility] [address] [place] [address] Dr. Anita Mckeon Glucose Ql (U) Negative Normal NEGATIVE [facility] Comment on above: Performed By: #### P THINT #### [facility] [address] [place] [address] Dr. Anita Mckeon Hemoglobin Ql (U) SMALL Abnormal NEGATIVE [facility] Comment on above: Performed By: #### P THINT #### [facility] [address] [address] [address] Anita Mckeon Ketones Ql (U) Negative Normal NEGATIVE [facility] Comment on above: Performed By: #### P THINT #### [facility] [address] [place] [address] Dr. Anita Mckeon LEUKOCYTES TRACE Abnormal NEGATIVE [facility] Comment on above: Performed By: #### P THINT #### [facility] [address] [place] [address] Dr. Anita Mckeon MUCOUS NONE SEEN Normal NONE SEEN [facility] Comment on above: Performed By: #### P THINT #### [facility] [address] [place] [address] Dr. Anita Mckeon Nitrite Ql (U) Negative Normal NEGATIVE [facility] Comment on above: Performed By: #### P THINT #### [facility] [address] [place] [address] Dr. Anita Mckeon pH (U) 6.0 [pH] Normal 5-9 [facility] Comment on above: Performed By: #### P THINT #### [facility] [address] [place] [address] Dr. Anita Mckeon RBC 2-5 Abnormal 0-2 [facility] Comment on above: Performed By: #### P THINT #### [facility] [address] [place] [address] Dr. Anita Mckeon SPEC GRAVITY 1.020 Normal 1.005-<=1.02 5 [facility] Comment on above: Performed By: #### P THINT #### [facility] [address] [place] [address] Dr. Anita Mckeon UA PROTEIN Negative Normal NEGATIVE/ TRACE [facility] Comment on above: Performed By: #### P THINT #### [facility] [address] [place] [address] Dr. Anita Mckeon Urobilinogen Qn (U) 0.2 {Kayla'U}/dL Normal 0.2 - 1.0 [facility] Comment on above: Performed By: #### P THINT #### [facility] [address] [place] [address] Dr. Anita Mckeon WBC 0-2 Abnormal NONE SEEN [facility] Comment on above: Performed By: #### P THINT #### [facility] [address] [place] [address] Dr. Anita Mckeon VIT B12 AND FOLATEon 023 Cobalamin (Vitamin B12) [Mass/Vol] 1188.0 pg/mL Critically high 193.0-986.0 [facility] Comment on above: Performed By: #### A 1C #### [facility] [address] [address] [address] Anita Mckeon FOLATE 26.70 ng/mL Normal 8.60-58.90 [facility] Comment on above: Performed By: #### A 1C #### [facility] [address] [place] [address] Dr. Anita Mckeon VITAMIN D 25 OHon 05-22-2022 VIT D 25-OH 50.3 ng/mL Normal [facility] [facility] Comment on above: Performed By: #### P THINT #### [facility] [address] [address] [address] Anita Mckeon VIT D RANGES SEE BELOW Normal [facility] Comment on above: Result Comment: <20 ng/mL Vit D deficient 20 - <30 ng/mL Vit D insufficient 30 - 100 ng/mL Vit D sufficient >100 ng/mL Potential Toxicity Performed By: #### P THINT #### [facility] [address] [place] [address] Dr. An[facility] Sadler [facility] JOHANNA CASTRO ([id number]) 1985 [facility] Date Time Provider Department 03/25/22 FREDI SANON During your visit today, we recorded the following information about you: Fredi Sanon RN 03/25/2022 3:10 PM Signed [facility] SPECIALTY CARE COORDINATION POST-OP TELEPHONE CALL BMI Post Op Telephone Call Pt was called on the third business day after discharge. DO YOU HAVE A COPY OF YOUR DISCHARGE INSTRUCTIONS YES Is there anything in your discharge instructions that you do not understand? NO Pain: zero. On a scale of 0-10, 0 being not satisfied and 10 being very satisfied, how satisfied were you with your pain management strategy after surgery? 10 ?Patient instructed not to take any narcotic pain medications (such as Roxicodone) within three hours before bedtime as it may cause breathing difficulty. If you are having pain at bedtime you may take Tylenol (liquid form or two extra strength tablets).? Phase 2 full liquid diet:: tolerating diet. and pt estimates 60 grams of protein and 64 oz of fluid daily. Incisions: surgical glue intact and afebrile GI: + BM : WNL Medications: Taking as instructioned at discharge PPI and ursodiol CPAP USE: N/A Remind patient of post op appt. Reminded patient of how to reach [facility] or their surgeons office. Patient reminded to seek medical attention if they develop chest pain, a sudden onset of shortness of breath or persistent pain in the calf of their legs - BEST TO ALWAYS present to [facility] hospital where you had your surgery Patient verbalized understanding of all advice and instructions given. COVID-19 Symptoms: none . Fredi Sanon RN Allergies As of Date: 03/25/2022 (No Known Allergies) Date Reviewed: 03/20/2022 Reviewed by: Veronica Sheppard RN - Fully Assessed Reason for Visit: Post Op [174] Prescriptions as of 03/25/2022 - acetaminophen (TYLENOL) 500 mg tablet Take 2 tablets by mouth every 6 hours as needed for pain. - ursodiol (ACTIGALL) 300 mg capsule Take 1 capsule by mouth twice daily. - oxyCODONE IR (ROXICODONE) 5 mg immediate release tablet Take 1 tablet by mouth every 8 hours as needed for pain. - pantoprazole DR (PROTONIX) 40 mg tablet Take 1 tablet by mouth once daily. - ondansetron (ZOFRAN) 4 mg tablet Take 1 tablet by mouth every 8 hours as needed for nausea/vomiting. - senna-docusate (SENNA-S) 8.6-50 mg per tablet Take 1 tablet by mouth once daily. Do not take if you have diarrhea - amLODIPine (NORVASC) 5 mg tablet Take 5 mg by mouth daily at bedtime. - propranolol (INDERAL) 20 mg tablet Take 1 tablet by mouth three times daily. - metFORMIN (GLUCOPHAGE) 1,000 mg tablet Take 1 tablet by mouth twice daily with meals. Problem List As Of Date 03/25/2022 Noted Resolved HTN (hypertension) [I10] 02/25/2020 Type 2 diabetes mellitus (HCC) [E11.9] 02/25/2020 Sarbjit's thyroiditis [E06.3] 02/25/2020 COVID-19 [U07.1] 02/25/2020 POTS (postural orthostatic tachycardia syndrome*02/25/2020 Tachycardia [R00.0] 02/25/2020 Mild protein-calorie malnutrition (HCC) [E44.1] 02/27/2020 Morbid obesity (HCC) [E66.01] 05/08/2021 Renal calculus, left [N20.0] 05/20/2021 Obesity, Class III, BMI >= 40 [E66.01] 03/17/2022 Encounter Status:Closed by FREDI SANON on 03/25/22 Normal [facility] Basic metabolic 2000 panelon 03-21-2022 Anion gap [Moles/Vol] 13 mmol/L Normal 9-18 [facility] Comment on above: Order Comment: Speci men Type: BLOOD SPECIMENOrdering Facility: [facility] Address: [address] [address] Performed By: #### 2 4321-2, , 2776-04 ####[facility]ORATORYCLIA [id number] [place] [address] [place] Calcium [Mass/Vol] 8.7 mg/dL Normal 8.5-10.2 [facility] Comment on above: Order Comment: Speci men Type: BLOOD SPECIMENOrdering Facility: [facility] Address: [address] [address] Performed By: #### 2 4321-2, , 2776-04 ####[facility] LABORATORYCLIA [id number] [place] [id number] [place] Chloride [Moles/Vol] 105 mmol/L Normal 97-105 [facility] Comment on above: Order Comment: Speci men Type: BLOOD SPECIMENOrdering Facility: [facility] Address: [address] [address] Performed By: #### 2 4321-2, , 2776-04 ####[facility] LABORATORYCLIA [id number] [place] [id number] [place] CO2 [Moles/Vol] 20 mmol/L Low 22-30 [facility] Comment on above: Order Comment: Speci men Type: BLOOD SPECIMENOrdering Facility: [facility] Address: [address] [place] [address] Performed By: #### 2 432-2, , 2776-04 ####[facility] LABORATORYCLIA [id number] [place] [id number] [place] Creatinine [Mass/Vol] 0.75 mg/dL Normal 0.58-0.96 [facility] Comment on above: Order Comment: Speci men Type: BLOOD SPECIMENOrdering Facility: [facility] Address: [address] [place] [address] Performed By: #### 2 432-2, , 2776-04 ####[facility] LABORATORYCLIA [id number] [address] [place] ESTIMATED GLOMERULAR FILTRATION RATE 105 mL/min/1.73m??? Normal >=60 [facility] Comment on above: Order Comment: Speci men Type: BLOOD SPECIMENOrdering Facility: [facility] Address: [address] [place] [address] Result Comment: Ara mated Glomerular Filtration Rate (eGFR) is calculated using the 2020 CKD-EPI creatinine equation. This equation utilizes serum creatinine, sex, and age as parameters. The creatinine assay has traceable calibration to isotope dilution-mass spectrometry. Refer to KDIGO guidelines for clinical interpretation. In patients with unstable renal function, e.g. those with acute kidney injury, the eGFR may not accurately reflect actual GFR. Performed By: #### 2 4321-2, , 2776-04 ####[facility] LABORATORYCLIA [id number] [place] [id number] [place] Glucose [Mass/Vol] 113 mg/dL High 74-99 [facility] Comment on above: Order Comment: Speci men Type: BLOOD SPECIMENOrdering Facility: [facility] Address: [address] [place] [address] [place] [address] Result Comment: The [place] Diabetes Association (ADA) provides guidance for cutoff values for fasting glucose and random glucose. The ADA defines fasting as no caloric intake for at least 8 hours. Fasting plasma glucose results between 100 to 125 mg/dL indicate increased risk for diabetes (prediabetes). Fasting plasma glucose results greater than or equal to 126 mg/dL meet the criteria for diagnosis of diabetes. In the absence of unequivocal hyperglycemia, results should be confirmed by repeat testing. In a patient with classic symptoms of hyperglycemia or hyperglycemic crisis, random plasma glucose results greater than or equal to 200 mg/dL meet the criteria for diagnosis of diabetes. Reference: Standards of Medical Care in Diabetes 2016, [place] Diabetes Association. Diabetes Care. 2016.39(Suppl 1). Performed By: #### 2 4321-2, , 2776-04 ####[facility] LABORATORYCLIA [id number] [place] [address] [place] Potassium [Moles/Vol] 3.5 mmol/L Low 3.7-5.1 [facility] Comment on above: Order Comment: Speci men Type: BLOOD SPECIMENOrdering Facility: [facility] Address: [address] [place] [address] Performed By: #### 2 4321-2, , 2776-04 ####[facility] LABORATORYCLIA [id number] [place] [id number] [place] Sodium [Moles/Vol] 138 mmol/L Normal 136-144 [facility] Comment on above: Order Comment: Speci men Type: BLOOD SPECIMENOrdering Facility: [facility] Address: [address] [place] [address] Performed By: #### 2 4321-2, , 2776-04 ####[facility] LABORATORYCLIA [id number] [place] [address] [place] Urea nitrogen [Mass/Vol] 7 mg/dL Normal 7-21 [facility] Comment on above: Order Comment: Speci men Type: BLOOD SPECIMENOrdering Facility: [facility] Address: [address] [facility] [address] [place] [address] Performed By: #### 2 4321-2, 77177-3, 2777-1 ####[facility] LABORATORYCLIA [id number] [address] [place] CBC panel Auto (Bld)on 03-21 Erythrocyte distribution width (RBC) [Ratio] 13.6 % Normal 11.5-15.0 [facility] Comment on above: Order Comment: Speci men Type: BLOOD SPECIMEN [facility] Address: [address] [address] Performed By: #### 5 8410-2 #### [facility] CLIA [id number] [address] [place] [address] Hematocrit (Bld) [Volume fraction] 34.4 % Low 36.0-46.0 [facility] Comment on above: Order Comment: Speci men Type: BLOOD SPECIMEN [facility] Address: [address] [address] Performed By: #### 5 8410-2 #### [facility] CLIA [id number] [address] [place] [address] [place] Hemoglobin (Bld) [Mass/Vol] 12.0 g/dL Normal 11.5-15.5 [facility] Comment on above: Order Comment: Speci men Type: BLOOD SPECIMEN [facility] Address: [address] [address] Performed By: #### 5 8410-2 #### [facility] CLIA [id number] [address] [place] [address] [place] MCH (RBC) [Entitic mass] 31.0 pg Normal 26.0-34.0 [facility] Comment on above: Order Comment: Speci men Type: BLOOD SPECIMEN [facility] Address: [address] [address] Performed By: #### 5 8410-2 #### [facility] CLIA [id number] [address] [place] [address] [place] MCHC (RBC) [Mass/Vol] 34.9 g/dL Normal 30.5-36.0 [facility] Comment on above: Order Comment: Speci men Type: BLOOD SPECIMEN [facility] Address: [address] [address] Performed By: #### 5 8410-2 #### [facility] CLIA [id number] [address] [place] [address] [place] MCV (RBC) [Entitic vol] 88.9 fL Normal 80.0-100.0 [facility] Comment on above: Order Comment: Speci men Type: BLOOD SPECIMEN [facility] Address: [address] [address] Performed By: #### 5 8410-2 #### [facility] CLIA [id number] [address] [place] [address] [place] Nucleated RBC (Bld) [#/Vol] 10*3/uL Normal <0.01 [facility] Comment on above: Order Comment: Speci men Type: BLOOD SPECIMEN [facility] Address: [address] [address] Performed By: #### 5 8410-2 #### [facility] CLIA [id number] [address] [place] [address] [place] Platelet mean volume (Bld) [Entitic vol] 11.7 fL Normal 9.0-12.7 [facility] Comment on above: Order Comment: Speci men Type: BLOOD SPECIMEN [facility] Address: [address] [address] Performed By: #### 5 8410-2 #### [facility] CLIA [id number] [address] [place] [address] [place] Platelets (Bld) [#/Vol] 251 10*3/uL Normal 150-400 [facility] Comment on above: Order Comment: Speci men Type: BLOOD SPECIMEN [facility] Address: [address] [address] Performed By: #### 5 8410-2 #### [facility] CLIA [id number] [place] [address] [place] RBC (Bld) [#/Vol] 3.87 10*6/uL Low 3.90-5.20 [facility] Comment on above: Order Comment: Soniashine binta Type: BLOOD SPECIMEN [facility] Address: [address] [address] Performed By: #### 5 8410-2 #### [facility] CLIA [id number] [address] [place] [address] [place] WBC (Bld) [#/Vol] 10.05 10*3/uL Normal 3.70-11.00 [facility] Comment on above: Order Comment: Toyin judd Type: BLOOD SPECIMEN [facility] Address: [address] [place] [address] Performed By: #### 5 8410-2 #### [facility] CLIA [id number] [facility] CNDSon 03-21-2022 CNDS HNO ID: [id number] Author: Chely Jules MD Service: General Surgery Author Type: Resident Type: Discharge Summary Filed: 03/21/2022 1:10 PM Note Text: Attestation signed by Real Bergman MD at 03/23/2022 10:03 AM Uncomplicated stay for weight loss surgery. Real Bergman MD DISCHARGE SUMMARY PATIENT NAME: Johanna Castro ADMISSION DATE: 03/20/2022 DISCHARGE DATE: 03/21/2022 ATTENDING PHYSICIAN: Real Bergman MD Code Status: Not on file Highest Readmission Risk Score: 8 The 30 day readmissions risk score is derived from an internally validated risk model which evaluates patient level characteristics, utilization history, medication orders and lab results up until the day of discharge. Patients with a score of 40 or above are considered highest risk for readmission. Specific patient level drivers will be listed at the bottom of the summary. CONSULTING TEAMS DURING HOSPITALIZATION: None Treatment Team: Attending Provider: Real Bergman MD REASON FOR HOSPITALIZATION: To undergo bariatric surgery DIAGNOSIS: Principal Problem: Morbid obesity (HCC) POA: Yes Active Problems: Obesity, Class III, BMI >= 40 POA: Unknown Resolved Problems: * No resolved hospital problems. * OPERATIONS DURING HOSPITALIZATION: Laparoscopic sleeve gastrectomy PROCEDURES DURING HOSPITALIZATION: No procedures performed HOSPITAL COURSE: You were admitted to [facility] on 03/[facility]2022 to undergo the above listed procedure. You tolerated the procedure well and were transferred to the recovery area and then the regular nursing floor for routine post operative care. Your pain was managed with oral and IV pain medication. Your diet was started with clear liquids and advanced to full liquids and pureed food as tolerated. On the day of discharge, you were tolerating an oral diet, ambulating well, urinating independently, and your pain AND nausea were controlled on medications. You were deemed stable for discharge home with instructions to schedule outpatient follow up. Transitions of Care Critical Issues: LABS AND PROCEDURES PENDING AT DISCHARGE: No pending results. PATIENT CONDITION AT DISCHARGE: Stable DISCHARGE DISPOSITION: Home with Self Care Physical Exam HENT: Head: Normocephalic. Nose: Nose normal. Mouth/Throat: Mouth: Mucous membranes are moist. Pharynx: Oropharynx is clear. Eyes: Conjunctiva/sclera: Conjunctivae normal. Cardiovascular: Rate and Rhythm: Normal rate. Pulses: Normal pulses. Pulmonary: Effort: Pulmonary effort is normal. Abdominal: General: There is no distension. Palpations: Abdomen is soft. Tenderness: There is abdominal tenderness. Comments: Appropriate incisional tenderness. No erythema or cellulitis. Incisions c/d/I. Skin: General: Skin is warm. Neurological: General: No focal deficit present. Mental Status: She is alert. Psychiatric: Mood and Affect: Mood normal. INFORMATION PROVIDED TO PATIENT: Postop instructions WOUND/SURGICAL SITE CARE: Leave open to air DIET: Bariatric Phase 2 diet: Full liquid, carbohydrate controlled ACTIVITY: Resume pre-hospital activity, No heavy lifting for ~4 weeks ALLERGIES No Known Allergies DISCHARGE MEDICATION: Current Discharge Medication List CONTINUE these medications which have NOT CHANGED amLODIPine (NORVASC) 5 mg Take 5 mg by mouth daily at bedtime. propranolol (INDERAL) 20 mg Take 20 mg by mouth three times daily. Qty: 90 tablet Refills: 0 metFORMIN (GLUCOPHAGE) 1,000 mg Take 1,000 mg by mouth twice daily with meals. Qty: 60 tablet Refills: 0 oxyCODONE IR (ROXICODONE) 5 mg Take 5 mg by mouth every 8 hours as needed for pain. Qty: 5 tablet Refills: 0 Associated Diagnoses:Morbid obesity (HCC); Preoperative examination pantoprazole DR (PROTONIX) 40 mg Take 40 mg by mouth once daily. Qty: 90 tablet Refills: 0 Associated Diagnoses:Morbid obesity (HCC); Preoperative examination ondansetron (ZOFRAN) 4 mg Take 4 mg by mouth every 8 hours as needed for nausea/vomiting. Qty: 20 tablet Refills: 1 Associated Diagnoses:Morbid obesity (HCC); Preoperative examination senna-docusate (SENNA-S) 1 tablet Take 1 tablet by mouth once daily. Do not take if you have diarrhea Qty: 30 tablet Refills: 0 Associated Diagnoses:Morbid obesity (HCC); Preoperative examination FUTURE APPOINTMENTS: Appointments for Next 60 Days Date Time Provider Location Dept Phone 03/31/2022 2:00 PM NEIDA GAINES [phone] 04/04/2022 9:30 AM NERIS JAMESON [facility] [phone] 04/28/2022 3:00 PM NEIDA GAINES [phone] The patient's risk for 30-day readmission is determined using the following contributing factors: Pt variables contributing to increased readmission risk: 10 Mos (more content not included)... Normal [facility] Magnesium SerPl-mCncon 03-21 Magnesium [Mass/Vol] 1.7 mg/dL Normal 1.7-2.3 [facility] Comment on above: Order Comment: Speci men Type: BLOOD SPECIMENOrdering Facility: [facility] Address: [place] [address] Performed By: #### 2 4321-2, 20158-3, 2777-1 ####[facility]ATORYCLIA [id number] [place] [id number] [place] NURSING PROGon 03-21-2022 NURSING PROG HNO ID: [id number] Author: Daniela Pena RN Service: Nursing Author Type: Registered Nurse Type: Nursing Progress Note Filed: 03/21/2022 1:37 PM Note Text: Daily Note: 08: pt AANDOx3. VSS on RA w/ continuous pulse ox. Pt up independently. Denies CP or SOB. Abdomen soft but tender. Lap sites SUDEEP w/glue. Sinus tach to sinus rhythm on tele. 0834: paged orange team HR sustaining 150s when up to bathroom. Awaiting response. 0940: new orders received. One time dose and PRN lopressor ordered. 1024: Medicated Per JUN 1329: discharge instructions reviewed and given to patient and sister. 1356: pt ambulated off unit in stable condition with all belongings in hand [facility] NURSING PROG HNO ID: [id number] Author: Lissa Lopez RN Service: ? Author Type: Registered Nurse Type: Nursing Progress Note Filed: 03/21/2022 6:34 AM Note Text: Other: 2356: Page sent to surgical team. Patients HR sustaining around 110-113. 0025: SROC at bedside. Aware that HR is sustaining around 110-113 and jumping up to 120 at rest. Order placed for 500mL bolus. 0324: Page sent to SROC. Patients HR sustaining around 110-115. 0430: Page sent to SROC. Patient has history of DM type 2 and takes metformin at home. No new orders at this time. 0455: Page sent to SROC. Patients HR when ambulating jumps up to 150's. At rest HR sustaining 117-120's. Per SROC awaiting day team for new orders. 0630: [place] team at bedside. Per team will place home BP/HR meds and add ACHS sliding scale. Normal [facility] PT EDon 03-21-2022 PT ED HNO ID: [id number] Author: Julisa Herrmann DTR Service: Nutrition Therapy Author Type: Head Stock Operator Type: Patient Education Filed: 03/21/2022 12:37 PM Note Text: NUTRITION THERAPY PATIENT EDUCATION SERVICE DATE: 03/21/2022 SERVICE TIME: 10:00 AM TOPIC: Diet: Bariatric LEARNING ASSESSMENT Individuals Assessed: Patient and Family Preferred Learning Method: Verbal Instruction and Written Instruction Barriers to Learning: None Evident LEARNING RESPONSE Instruction Provided to: Patient and family member Patient / Family Response: Verbalizes Understanding Method of Instruction: Written instruction - handouts Verbal instruction Material(s) Provided to Patient: Bariatric Surgery Post Operative Care Follow-Up Plan: Recommend - Recommend continued instruction and follow up as directed Referral (Recommendation): Nutrition - Outpatient MNT Billing: $ Routine Care : 16-30 minutes SIGNATURE: Julisa Herrmann DTR PATIENT NAME: Johanna Castro DATE: March 21, 2022 TIME: 12:37 PM PAGER: Normal [facility] Phosphate SerPl-mCncon 03-21 Phosphate [Mass/Vol] 3.2 mg/dL Normal 2.7-4.8 [facility] Comment on above: Order Comment: Speci men Type: BLOOD SPECIMENOrdering Facility: [facility] Address: [address] [place] [address] Performed By: #### 2 4321-2, 91562-3, 2777-1 ####[facility]ORATORYCLIA [id number] [address] [place] SARS-CoV-2 RNA Resp Ql LAUREN+p [facility] 03-21-2022 SARS-CoV-2 (COVID-19) RNA LAUREN+probe Ql (Resp) COVID 19 RESULT: SARS-CoV-2 (Agent of COVID-19) Not Detected by RT-PCR or equivalent method. This test has been authorized by FDA under an Emergency Use Authorization (EUA). Normal [facility] Comment on above: Performed By: #### 9 4500-6 ####[facility]ORATORYCLIA [id number] [place] [address] [place] ANES POSTPROC EVALon 022 ANES POSTPROC EVAL HNO ID: [id number] Author: Nicolle Rankin MD Service: Anesthesiology Author Type: Physician Type: Anesthesia Postprocedure Evaluation Filed: 03/20/2022 3:44 PM Note Text: POST ANESTHESIA EVALUATION NOTE : 1985 Procedure Summary Date: 03/20/22 Room / Location: OR05 / [facility] OR Anesthesia Start: 1356 Anesthesia Stop: 1531 Procedure: LAPAROSCOPIC LONGITUDINAL GASTRECTOMY, GASTRIC RESTRICTIVE PROCEDURE (Abdomen) Diagnosis: Morbid obesity (HCC) Preoperative examination (Morbid obesity (HCC) [E66.01]) (Preoperative examination [Z01.818]) Surgeons: Real Bergman MD Responsible Provider: Nicolle Rankin MD Anesthesia Type: general ASA Status: 2 Anesthesia Type: general Airway Type: ETT Last Vitals Vitals Value Taken Time BP 179/107 03/20/22 1530 Temp 36.1 ?C (97 ?F) 03/20/22 1530 Pulse 91 03/20/22 1543 Resp 12 03/20/22 1543 SpO2 98 % 03/20/22 1543 Vitals shown include unvalidated device data. Post Anesthesia Patient Status Patient Evaluation: PACU. PACU/ICU Patient Condition: stable. Anticipated Disposition: phase 2 then home. Neurological Status: aware and responsive. Pulmonary Status: breathing comfortably on supplemental oxygen Airway Control: returned to baseline unsupported. Cardiovascular Status: stable. Pain Management: clinically adequate - multimodal analgesia pain management approach Postoperative Hydration: acceptable. Intraoperative Events: no significant anesthesia events Post Operative Nausea/Vomiting Status: no significant post operative nausea or vomiting Recommendation: continue current plan of care. Other Remarks: Hypertensive going to sleep and waking up. Anesthesia Observations No Documentation SIGNATURE: Nicolle Rankin MD PATIENT NAME: Johanna Castro DATE: March 20, 2022 TIME: 3:44 PM CSN: [id number] [facility] ANES PRE-OPon 03-20-2022 ANES PRE-OP HNO ID: [id number] Author: Nicolle Rankin MD Service: Anesthesiology Author Type: Physician Type: Anesthesia Preprocedure Evaluation Filed: 03/20/2022 12:52 PM Note Text: ANESTHESIOLOGY DAY OF SURGERY NOTE : 1985 Procedure Information Date/Time: 03/20/22 1300 Procedure: LAPAROSCOPIC LONGITUDINAL GASTRECTOMY, GASTRIC RESTRICTIVE PROCEDURE (Abdomen) Location: OR05 / [facility] OR Surgeons: Real Bergmna MD Estimated body mass index is 45.77 kg/m? as calculated from the following: Height as of 03/17/22: 172.7 cm (5' 8 ). Weight as of 03/17/22: 136.5 kg (301 lb). Most recent hematocrit and potassium results: Hematocrit 43.4 03/17/2022 Potassium 4.3 03/17/2022 Relevant Problems CARDIO (+) HTN (hypertension) ENDO (+) Type 2 diabetes mellitus (HCC) -RENAL (+) Renal calculus, left I - PHYSICAL EVALUATION AIRWAY Patient intubated: No. Tracheostomy tube not present Mallampati: I. TM distance: >3 FB. Neck ROM: full ROM without neurological symptoms. Mouth opening: adequate. Short neck: no. Thick neck: yes Reece present: no DENTAL Dental findings: teeth intact. Additional exam findings: no II - ANESTHESIA PLAN ASA Score: 2 Anesthetic Plan: general Airway type: ETT The patient is not a current smoker. NPO Status: adequate Beta Radha Monitoring Plan Monitoring plan: standard ASA. Post Procedure Analgesic Plan Postoperative analgesic plan: parenteral or oral opioids and multimodal analgesia. Informed Consent Anesthetic risks, benefits, alternatives, personnel and consent discussed: yes. Patient / Responsible Libertarian agrees to proceed: yes Patient / Surrogate agrees to blood products: Yes Vitals Value Taken Time BP 173/99 03/20/22 1221 Pulse 93 03/20/22 1221 Resp 16 03/20/22 1221 Temp 36.4 ?C (97.5 ?F) 03/20/22 1221 SpO2 99 % 03/20/22 1221 Facility-Administered Medications as of 03/20/2022 Medication Dose Route Frequency - heparin 5,000 Units injection 5,000 Units SUBCUTANEOUS ONCE - lidocaine 10 mg/mL (1 %) 1-2 mg injection (XYLOCAINE) 0.1-0.2 mL INTRADERMAL PRN - lactated ringers iv infusion 5-30 mL/hr INTRAVENOUS CONTINUOUS - NaCl 0.9% iv flush bag 20 mL INTRAVENOUS PRN - [COMPLETED] pantoprazole 40 mg injection (PROTONIX) 40 mg INTRAVENOUS Pre-Op Once - [COMPLETED] acetaminophen 1,000 mg tab(s) (TYLENOL) 1,000 mg ORAL Pre-Op Once - [COMPLETED] celecoxib 200 mg cap(s) (CeleBREX) 200 mg ORAL Pre-Op Once - [COMPLETED] scopolamine 1 mg over 3 days 1 Patch (TRANSDERM-SCOP) 1 Patch TRANSDERMAL Pre-Op Once And - scopolamine - REMOVE PATCH OTHER q 72 HR And - scopolamine - VERIFY patch OTHER q 8 H - ceFAZolin 3 g in D5W 100 mL (ANCEF) 3 g INTRAVENOUS Pre-Op Once - [COMPLETED] promethazine 12.5 mg tab(s) (PHENERGAN) 12.5 mg ORAL NOW Outpatient Medications as of 03/20/2022 Medication Sig - amLODIPine (NORVASC) 5 mg tablet Take 5 mg by mouth daily at bedtime. - propranolol (INDERAL) 20 mg tablet Take 1 tablet by mouth three times daily. - metFORMIN (GLUCOPHAGE) 1,000 mg tablet Take 1 tablet by mouth twice daily with meals. I have interviewed and examined the patient. I have reviewed the medical record and/or the pre-anesthesia evaluation, pertinent labs, and test results. This contains updated information obtained within 48 hours of Surgery/Procedure. SIGNATURE: Nicolle Rankin MD PATIENT NAME: Johanna Castro DATE: March 20, 2022 TIME: 12:52 PM CSN: [id number] [facility] BRIEF OP NOTon 03-20-2022 BRIEF OP NOT HNO ID: [id number] Author: Chely Jules MD Service: General Surgery Author Type: Resident Type: Brief Op Note Filed: 03/20/2022 3:20 PM Note Text: Attestation signed by Real Bergman MD at 03/20/2022 3:29 PM [id number] Real Bergman MD GENERAL SURGERY BRIEF OP NOTE LOG ID: [id number] Surgery/Procedure Date: 03/20/2022 Incision/Procedure Start Time: 2:22 PM Incision Close/Procedure End Time: 3:19 PM 3:16 PM Surgeon(s) and Poultry Scalder(s): Surgeon(s) and Role: * Real Bergman MD - Primary * Chely Jules MD - Resident - Assisting No Additional Staff Procedure(s): Procedure(s): LAPAROSCOPIC LONGITUDINAL GASTRECTOMY, GASTRIC RESTRICTIVE PROCEDURE Anesthesia: General Findings: s/p laparoscopic sleeve gastrectomy, negative leak test, please see operative report for full details Tubes/Drains: PIV Estimated Blood Loss: 10 cc Specimens: ID Type Source Tests Collected by Time Destination A : Tissue STOMACH RESECTION SURGICAL PATHOLOGY Real Bergman MD 03/20/2022 3:03 PM Implant: * No implants in log * Wound Classification: Class 2, operative wound clean-contaminated, gastrointestinal/biliary tract entered without significant spillage Complications: None Pre-Op/Pre-Procedure Diagnosis: Pre-Op Diagnosis Codes: * Morbid obesity (HCC) [E66.01] * Preoperative examination [Z01.818] Post-Op/Post-Procedure Diagnosis: Same SIGNATURE: Chely Jules MD PATIENT NAME: Johanna Castro DATE: March 20, 2022 TIME: 3:19 PM PAGER/CONTACT #: See [facility] [employer] for service pager. [facility] NURSING PROGon 03-20-2022 NURSING PROG HNO ID: [id number] Author: Veronica Sheppard RN Service: ? Author Type: Registered Nurse Type: Nursing Progress Note Filed: 03/20/2022 9:40 PM Note Text: Transfer Note: Patient transferred into room/unit PK321 from PACU in stable condition. Actions taken: No futher actions taken at this time. Will continue to monitor and check with patient. [facility] NURSING PROG HNO ID: [id number] Author: Christie Thomas RN Service: Nursing Author Type: Registered Nurse Type: Nursing Progress Note Filed: 03/20/2022 12:00 PM Note Text: PATIENT EDUCATION TOPIC: PROCEDURE / SURGERY: Pre-op Teaching: Protocols PATIENT NAME: Johanna Castro PATIENT LOCATION: [place]/[facility] OR POOL READ[facility] TO LEARN COGNITIVE ABILITY: Alert and oriented MOTIVATION TO LEARN: Interested FAMILY SUPPORT: Unable to assess - Family not present INSTRUCTION PROVIDED TO: Patient PATIENT LEARNS BEST BY: Individual Instruction FACTORS AFFECTING LEARNING: None PHYSICAL LIMITATIONS AFFECTING LEARNING: None LEARNING RESPONSE DIAGNOSIS: ADULT: Well Adult PATIENT/FAMILY RESPONSE: Verbalizes understanding of: PRE-OPERATIVE INSTRUCTIONS-Correct action to take to follow pre-operative instructions METHOD OF INSTRUCTION: Individual instruction FOLLOW-UP PLAN: Patient instructed to call with any further issues INSTRUCTIONAL AIDS USED: NA SUPPLEMENTAL MATERIAL PROVIDED TO PATIENT: None REFERRAL (RECOMMENDATION): None Electronically Signed By: Christie Thomas [facility] OPERATIVE NOon 03-20-2022 OPERATIVE NO HNO ID: [id number] Author: Real Bergman MD Service: General Surgery Author Type: Physician Type: Operative Report Filed: 03/23/2022 12:59 PM Note Text: [facility] - Operative Report JOHANNA CASTRO : 1985 AGE: 36. SEX: F PATIENT TYPE: I HOSP SVC: GENS LOCATION: [facility] ATTENDING PHYSICIAN: Real Bergman M.D. CSN NUMBER: [id number] DATE OF SURGERY/PROCEDURE: 03/20/2022 INCISION/PROCEDURE START TIME: 2:22 PM INCISION CLOSE/PROCEDURE END TIME: 3:16 PM PREOPERATIVE DIAGNOSIS: 1. Morbid obesity. BMI 45 kg/sqm. 2. Hypertension. 3. Type 2 diabetes. POSTOPERATIVE DIAGNOSIS: 1. Morbid obesity. BMI 45 kg/sqm. 2. Hypertension. 3. Type 2 diabetes. SURGEON: Real Bergman M.D. TEACHERS ASSISTANT: Clara Jules. SURGERY/PROCEDURE: Laparoscopic sleeve gastrectomy. ANESTHESIA: General OPERATIVE INDICATIONS: This 36-year-old woman underwent a comprehensive evaluation for metabolic and weight loss surgery. The operative plan was for a sleeve gastrectomy. DESCRIPTION OF PROCEDURE: The patient was positioned supine with her arms out. Her abdomen was prepped and draped. Her abdomen was insufflated with a Veress needle in the left subcostal space. The abdomen was entered with a 10 mm 0 degree laparoscope within a 12 mm optical trocar in the left periumbilical space. There was no trauma from the Veress needle and that was removed. After pre-injection with local anesthesia, additional 12 mm port was placed in the right periumbilical space, 15 mm port in the right upper quadrant, and 5 mm ports in the epigastrium and the left subcostal space. The lesser sac was entered approximately 6 cm from the pylorus on the greater curve of the stomach using the LigaSure device and the omentum was freed from the greater curve proceeding proximally using the same device. The short gastric vessels were likewise ligated and divided using the same device up until the entire left crura was exposed. This completed the dissection. An inspection was made for hemostasis which was complete. A 40-Angolan bougie was passed by the Anesthesiology team and directed to rest on lesser curve of the stomach. Then, a sleeve gastrectomy was performed with a series of crowley staple loads beginning 6 cm from the pylorus and proceeding up to the angle of His. This created a sleeve gastrectomy with a straight staple line was totally hemostatic without any narrowing at the incisura. The Anesthesiology team filled the stomach with air via the bougie and a leak test was performed using sterile saline irrigation under laparoscopic vision and there were no bubbles indicating a negative leak test. The stomach was desufflated. The bougie was removed. The irrigation was suctioned free. The specimen was removed via the 15 mm port site. Final inspection was made for hemostasis. The abdomen was desufflated and the remaining ports were removed. The skin was injected with local anesthesia. The skin was closed with 4-0 Monocryl. Dressing of Exofin was applied. DRAINS: None. COMPLICATIONS: None. SPECIMEN: Portion of stomach. ESTIMATED BLOOD LOSS: 40 mL. ATTESTATION: I performed the procedure with assistance. Real Bergman M.D. MADELIN:[id number] /[id number] [facility] SURGICAL PATHOLOGYon CASE REPORT Normal [facility] Comment on above: Order Comment: Speci men Type: TISSUE SPECIMENOrdering Facility: [facility] Address: [address] [place] [address] Result Comment: Surg [facility] Pathology Report Case: [id number] Authorizing Provider: Real Bergman MD Collected: 03/20/2022 03:03 PM Ordering Location: [facility] Received: 03/20/2022 03:40 PM Operating Room Pathologist: Alfonso Toro MD Specimen: STOMACH RESECTION Performed By: #### S ####[facility]ORYCLIA [id number] [address] CLINICAL HISTORY Normal [facility] Comment on above: Order Comment: Speci men Type: TISSUE SPECIMENOrdering Facility: [facility] Address: [address] [place] [address] Result Comment: Pre- op diagnosis: Morbid obesity (HCC) [E66.01] Preoperative examination [Z01.818] Performed By: #### S ####[facility]ORATORYCLIA [id number] [address] FINAL DIAGNOSIS Normal [facility] Comment on above: Order Comment: Speci men Type: TISSUE SPECIMENOrdering Facility: [facility] Address: [address] [place] [address] Result Comment: Port ion of stomach, excision: - Segment of gastric body/fundus with no diagnostic abnormality. JEL 03/24/2022 Performed By: #### S ####[facility]ORATORYCLIA [id number] [address] FINAL PERFORMING LAB Normal [facility] Comment on above: Order Comment: Speci men Type: TISSUE SPECIMENOrdering Facility: [facility] Address: [address] [place] [address] Result Comment: Diag nostic interpretation performed at [facility], [address] [place] [address] CLIA# [id number] Child Care Assistant: Michael El M.D. Performed By: #### S ####[facility]ORATORYCLIA [id number] [address] GROSS DESCRIPTION Normal [facility] Comment on above: Order Comment: Speci men Type: TISSUE SPECIMENOrdering Facility: [facility] Address: [place] [address] Result Comment: A. S TOMACH RESECTION Received in formalin designated stomach resection is a portion of stomach which measures 20.7 cm in length and up to 9.5 cm in circumference. The mucosal surface is crowley-pink with normal rugal folds. No polyps or ulcerations are grossly appreciated. Sectioning does not reveal any masses or nodules. The serosal surface is crowley-pink and smooth. Bilingual Sales Consultant sections are submitted in three cassettes. BF March 20, 2022 3:51 PM Gross examination performed at [facility], [address] [place] [address] CLIA # [id number] Performed By: #### S ####[facility]ORATORYCLIA [id number] [address] US SINGLE QUAD RT UPPERon US SINGLE QUAD RT UPPER EXAMINATION: US SINGLE QUAD RT UPPER HISTORY: Essential hypertension COMPARISON: No relevant comparison available. FINDINGS: The liver is normal in size and contour. No focal mass. Diffuse increase in echotexture. Hepatopedal flow in the main portal vein The gallbladder is normal in size. The wall measures 1.4 mm, normal. Negative sonographic Mendosa sign. Echogenic focus measuring 2.3 cm with acoustic shadowing, cholelithiasis. The common bile duct measures 4 mm, normal. Tiny amount of pericholecystic fluid The visualized pancreas is normal The right kidney is normal measuring 12.6 x 6.1 x 6.3 cm. IMPRESSION: Trace pericholecystic fluid, nonspecific Cholelithiasis Hepatic steatosis Electronically authenticated by: AUSTYN HARRIS Date: 2022-03-18 13:48 Normal [facility] CBC W Auto Differential pane l (Bld)on 03-17-2022 Basophils (Bld) [#/Vol] 0.05 10*3/uL Normal <0.11 [facility] Comment on above: Order Comment: Speci men Type: BLOOD SPECIMENOrdering Facility: [facility] Address: [address] Performed By: #### 5 7021-8 ####[facility] LABCLIA [id number] [address] [place] Basophils/100 WBC (Bld) 0.5 % Normal [facility] Comment on above: Order Comment: Speci men Type: BLOOD SPECIMENOrdering Facility: [facility] Address: [address] [place], [place] [address] Performed By: #### 5 7021-8 ####[facility] LABCLIA [id number] [place] [address] [place] Differential cell count method Nom (Bld) Auto Normal [facility] Comment on above: Order Comment: Speci men Type: BLOOD SPECIMENOrdering Facility: [facility] Address: [address] [place] [address] Performed By: #### 5 7021-8 ####[facility] LABCLIA [id number] [place] [address] [place] Eosinophils (Bld) [#/Vol] 0.13 10*3/uL Normal <0.46 [facility] Comment on above: Order Comment: Speci men Type: BLOOD SPECIMENOrdering Facility: [facility] Address: [address] [place], [place] [address] Performed By: #### 5 7021-8 ####[facility] LABCLIA [id number] [address] [place] Eosinophils/100 WBC (Bld) 1.2 % Normal [facility] Comment on above: Order Comment: Speci men Type: BLOOD SPECIMENOrdering Facility: [facility] Address: [address] [place], [place] [address] Performed By: #### 5 7021-8 ####[facility] LABCLIA [id number] [place] [address] [place] Erythrocyte distribution width (RBC) [Ratio] 13.8 % Normal 11.5-15.0 [facility] Comment on above: Order Comment: Speci men Type: BLOOD SPECIMENOrdering Facility: [facility] Address: [address] [place], [place] [address] Performed By: #### 5 7021-8 ####[facility] LABCLIA [id number] [place] [address] [place] Hematocrit (Bld) [Volume fraction] 43.4 % Normal 36.0-46.0 [facility] Comment on above: Order Comment: Speci men Type: BLOOD SPECIMENOrdering Facility: [facility] Address: [address] [place] [address] Performed By: #### 5 7021-8 ####[facility] LABCLIA [id number] [place] [address] [place] Hemoglobin (Bld) [Mass/Vol] 14.1 g/dL Normal 11.5-15.5 [facility] Comment on above: Order Comment: Speci men Type: BLOOD SPECIMENOrdering Facility: [facility] Address: [address] [place], [place] [address] Performed By: #### 5 7021-8 ####[facility] LABIA [id number] [place] [address] [place] Immature granulocytes (Bld) [#/Vol] 0.03 10*3/uL Normal <0.10 [facility] Comment on above: Order Comment: Speci men Type: BLOOD SPECIMENOrdering Facility: [facility] Address: [address] [place], [place] [address] Performed By: #### 5 7021-8 ####[facility] LABCLIA [id number] [place] [address] [place] Immature granulocytes/100 WBC (Bld) 0.3 % Normal [facility] Comment on above: Order Comment: Speci men Type: BLOOD SPECIMENOrdering Facility: [facility] Address: [address] [place] [address] Performed By: #### 5 7021-8 ####[facility] LABCLIA [id number] [place] [address] [place] Lymphocytes (Bld) [#/Vol] 2.88 10*3/uL Normal 1.00-4.00 [facility] Comment on above: Order Comment: Speci men Type: BLOOD SPECIMENOrdering Facility: [facility] Address: [address] Performed By: #### 5 7021-8 ####[facility] LABCLIA [id number] [address] [place] Lymphocytes/100 WBC (Bld) 27.1 % Normal [facility] Comment on above: Order Comment: Speci men Type: BLOOD SPECIMENOrdering Facility: [facility] Address: [address] [place], [place] [address] Performed By: #### 5 7021-8 ####[facility] LABIA [id number] [place] [address] [place] MCH (RBC) [Entitic mass] 30.6 pg Normal 26.0-34.0 [facility] Comment on above: Order Comment: Speci men Type: BLOOD SPECIMENOrdering Facility: [facility] Address: [address] [place] [address] Performed By: #### 5 7021-8 ####[facility] LABCLIA [id number] [place] [address] [place] MCHC (RBC) [Mass/Vol] 32.5 g/dL Normal 30.5-36.0 [facility] Comment on above: Order Comment: Speci men Type: BLOOD SPECIMENOrdering Facility: [facility] Address: [address] Performed By: #### 5 7021-8 ####[facility] LABCLIA [id number] [place] [address] [place] MCV (RBC) [Entitic vol] 94.1 fL Normal 80.0-100.0 [facility] Comment on above: Order Comment: Speci men Type: BLOOD SPECIMENOrdering Facility: [facility] Address: [address] [place] [address] Performed By: #### 5 7021-8 ####[facility] LABCLIA [id number] [place] [address] [place] Monocytes (Bld) [#/Vol] 0.60 10*3/uL Normal <0.87 [facility] Comment on above: Order Comment: Speci men Type: BLOOD SPECIMENOrdering Facility: [facility] Address: [address] [place] [address] Performed By: #### 5 7021-8 ####[facility] LABCLIA [id number] [place] [address] [place] Monocytes/100 WBC (Bld) 5.7 % Normal [facility] Comment on above: Order Comment: Speci men Type: BLOOD SPECIMENOrdering Facility: [facility] Address: [address] [place], [place] [address] Performed By: #### 5 7021-8 ####[facility] LABCLIA [id number] [place] [address] [place] Neutrophils (Bld) [#/Vol] 6.92 10*3/uL Normal 1.45-7.50 [facility] Comment on above: Order Comment: Speci men Type: BLOOD SPECIMENOrdering Facility: [facility] Address: [address] [place], [place] [address] Performed By: #### 5 7021-8 ####[facility] LABCLIA [id number] [place] [address] [place] Neutrophils/100 WBC (Bld) 65.2 % Normal [facility] Comment on above: Order Comment: Speci men Type: BLOOD SPECIMENOrdering Facility: [facility] Address: [address] [place] [address] Performed By: #### 5 7021-8 ####[facility] LABCLIA [id number] [place] [address] [place] Nucleated RBC (Bld) [#/Vol] 10*3/uL Normal <0.01 [facility] Comment on above: Order Comment: Speci men Type: BLOOD SPECIMENOrdering Facility: [facility] Address: [address] Performed By: #### 5 7021-8 ####[facility] LABCLIA [id number] [place] [address] [place] Nucleated RBC/100 WBC (Bld) [Ratio] 0.0 /100 WBC Normal [facility] Comment on above: Order Comment: Speci men Type: BLOOD SPECIMENOrdering Facility: [facility] Address: [address] [place] [address] Performed By: #### 5 7021-8 ####[facility] LABCLIA [id number] [place] [address] [place] Platelet mean volume (Bld) [Entitic vol] 12.1 fL Normal 9.0-12.7 [facility] Comment on above: Order Comment: Speci men Type: BLOOD SPECIMENOrdering Facility: [facility] Address: [address] [place], [place] Performed By: #### 5 7021-8 ####[facility] LABCLIA [id number] [place] [address] [place] Platelets (Bld) [#/Vol] 318 10*3/uL Normal 150-400 [facility] Comment on above: Order Comment: Speci men Type: BLOOD SPECIMENOrdering Facility: [facility] Address: [address] [place] [address] Performed By: #### 5 7021-8 ####[facility] LABCLIA [id number] [place] [address] [place] RBC (Bld) [#/Vol] 4.61 10*6/uL Normal 3.90-5.20 [facility] Comment on above: Order Comment: Speci men Type: BLOOD SPECIMENOrdering Facility: [facility] Address: [address] [place] [address] Performed By: #### 5 7021-8 ####[facility] LABIA [id number] [place] [address] [facility] WBC (Bld) [#/Vol] 10.61 10*3/uL Normal 3.70-11.00 [facility] Comment on above: Order Comment: Speci men Type: BLOOD SPECIMENOrdering Facility: [facility] Address: [address] [place] [address] Performed By: #### 5 7021-8 ####[facility] LABIA [id number] [address] [facility] CNOVon 03-17-2022 CNOV Office Visit (BMIREJ ) JOHANNA CASTRO ([id number]) 1985 F [place] Date Time Provider Department 03/17/22 10:50 AM REAL BERGMAN During your visit today, we recorded the following information about you: Pulse Blood pressure Weight Height 92/minute 139/85 137.9 kg 1.727 m Real Bergman MD 03/17/2022 8:47 PM Signed SURGERY PREOPERATIVE VISIT NOTE Name: Johanna Castro Medical Record: [id number] Encounter No.: [id number] Johanna Castro is a 36 year old female seen in surgery clinic today for their final preoperative assessment. INTERVAL NOTE: well prepared for surgery. PLANNED PROCEDURE: 03/20/2022 LAPAROSCOPIC LONGITUDINAL GASTRECTOMY, GASTRIC RESTRICTIVE PROCEDURE VTE RISK CALCULATION: 0.16 % PAST MEDICAL HISTORY: PAST MEDICAL HISTORY Diagnosis Date Sarbjit's thyroiditis HTN (hypertension) Type 2 diabetes mellitus (HCC) PAST SURGICAL HISTORY: PAST SURGICAL HISTORY Procedure Laterality Date APPENDECTOMY 2008 SECTION HX x 3 PAST SURGICAL HISTORY OF hysteroscopy DANDC, LEEP PAST SURGICAL HISTORY OF kidney stone placed stent PCNL surgery to break it up SOCIAL HISTORY: Social History Tobacco Use Smoking status: Never Smokeless tobacco: Never Vaping Use Vaping Use: Never used Substance Use Topics Alcohol use: Never Comment: Confucianism Drug use: Never ALLERGIES: ALLERGIES No Known Allergies MEDICATIONS: Prior to Admission Medications: amLODIPine (NORVASC) 5 mg tablet Take 5 mg by mouth daily at bedtime. propranolol (INDERAL) 20 mg tablet Take 1 tablet by mouth three times daily. metFORMIN (GLUCOPHAGE) 1,000 mg tablet Take 1 tablet by mouth twice daily with meals. No current facility-administered medications for this visit. VISIT NOTE This patient was seen in clinic today to obtain informed consent, to discuss the details of their upcoming operation including the appropriate expectations for perioperative and postoperative care. In addition, preoperative and postoperative relevant prescriptions were provided and explained during this clinic visit. Based on co morbidities, age and gender, DVT risk is low. ERAS protocol discussed. Narcotics sparing postop recovery discussed. The consent discussion included the risks, benefits and anticipated outcomes of the procedure, the risks and benefits of the alternatives to the procedure, and the roles and tasks of the personnel to be involved. Patient is scheduled for laparoscopic possible open sleeve gastrectomy, possible repair of hiatal hernia, possible liver biopsy, and intraoperative EGD. I have discussed the risks of surgery including infection, bleeding including injury to the spleen, the mesenteric blood vessels, conversion in the open, postoperative leak requiring stenting, reoperation, resection or repair, stricture requiring dilation or revision, marginal ulcer requiring treatment including reoperation, and incisional hernias. I have also discussed the incidence of reflux problems after sleeve, the possibility of requiring medications for reflux as well or in the worst case scenario requiring surgery for reflux. I have also discussed regarding unsatisfactory weight loss as well as photograph inspector weight regain. I have also discussed medical complications including urinary tract infections, myocardial infarction, DVT, PE, prolonged ICU stay, and possible postoperative mechanical ventilation and the risk of mortality. I have reviewed with this patient needed nutritional changes, post-operative recovery, and the potential for excess skin following surgery and subsequent weight loss. Risks of nicotine before and after bariatric surgery were also discussed with patient. I have also discussed in detail regarding postoperative hospital stay as well as recovery. The patient had an opportunity to ask additional questions that were answered. The patient expressed that they understood. A consent form was signed today. Prescriptions were explained and provided to the patient. Real Bergman MD Referring Provider: REAL BERGMAN [[id number]] Allergies As of Date: 03/17/2022 (No Known Allergies) Date Reviewed: 03/17/2022 Reviewed by: Tere Barrett PA-C - Fully Assessed Reason for Visit: Pre-Op Visit [1235] Cmt: Lap sleeve Primary Visit Diagnosis:Morbid obesity (HCC) [E66.01] Other Visit Diagnosis:Preoperative examination [Z01.818] Order(s):oxyCODONE IR (ROXICODONE) 5 mg immediate release tabletTake 1 tablet by mouth every 8 hours as needed for pain.Disp: 5 tabletRfl: [address] (PROTONIX) 40 mg tabletTake 1 tablet by mouth once daily.Disp: 90 tabletRfl: 0 ondansetron (ZOFRAN) 4 mg tabletTake 1 tablet by mouth every 8 hours as needed for nausea/vomiting.Disp: 20 tabletRfl: 1 senna-docusate (SENNA-S) 8.6-50 mg per tabletTake 1 tablet by mouth once daily. Do not take if you randall (more content not included)... Normal [facility] Comprehensive metabolic 2000 panelon 03-17-2022 Albumin [Mass/Vol] 4.3 g/dL Normal 3.9-4.9 [facility] Comment on above: Order Comment: Speci men Type: BLOOD SPECIMENOrdering Facility: [facility] Address: [address] [place] [address] Performed By: #### 2 4323-8 ####[facility] LABCLIA [id number] [facility] [address] [address] [place] ALP [Catalytic activity/Vol] 69 U/L Normal 34-123 [facility] Comment on above: Order Comment: Speci men Type: BLOOD SPECIMENOrdering Facility: [facility] Address: [address] [place], [place] [id number] Performed By: #### 2 4323-8 ####[facility] LABCLIA [id number] [place] [address] [place] ALT [Catalytic activity/Vol] 46 U/L High 7-38 [facility] Comment on above: Order Comment: Speci men Type: BLOOD SPECIMENOrdering Facility: [facility] Address: [address] [place], [place] [address] Performed By: #### 2 4323-8 ####[facility] LABCLIA [id number] [place] [address] [place] Anion gap [Moles/Vol] 13 mmol/L Normal 9-18 [facility] Comment on above: Order Comment: Speci men Type: BLOOD SPECIMENOrdering Facility: [facility] Address: [address] [place], [place] [address] Performed By: #### 2 4323-8 ####[facility] LABCLIA [id number] [place] [address] [place] AST [Catalytic activity/Vol] 47 U/L High 13-35 [facility] Comment on above: Order Comment: Speci men Type: BLOOD SPECIMENOrdering Facility: [facility] Address: [address] Performed By: #### 2 4323-8 ####[facility] LABCLIA [id number] [place] [address] [place] Bilirubin [Mass/Vol] 0.7 mg/dL Normal 0.2-1.3 [facility] Comment on above: Order Comment: Speci men Type: BLOOD SPECIMENOrdering Facility: [facility] Address: [address] [place], [place] [address] Performed By: #### 2 4323-8 ####[facility] LABCLIA [id number] [place] [address] [place] Calcium [Mass/Vol] 9.4 mg/dL Normal 8.5-10.2 [facility] Comment on above: Order Comment: Speci men Type: BLOOD SPECIMENOrdering Facility: [facility] Address: [address] [place] [address] Performed By: #### 2 4323-8 ####[facility] LABCLIA [id number] [place] [address] [place] Chloride [Moles/Vol] 104 mmol/L Normal 97-105 [facility] Comment on above: Order Comment: Speci men Type: BLOOD SPECIMENOrdering Facility: [facility] Address: [address] [place] [address] Performed By: #### 2 4323-8 ####[facility] LABCLIA [id number] [place] [address] [place] CO2 [Moles/Vol] 21 mmol/L Low 22-30 [facility] Comment on above: Order Comment: Speci men Type: BLOOD SPECIMENOrdering Facility: [facility] Address: [address] [place], [place] [address] Performed By: #### 2 4323-8 ####[facility] LABCLIA [id number] [place] [address] [place] Creatinine [Mass/Vol] 0.73 mg/dL Normal 0.58-0.96 [facility] Comment on above: Order Comment: Speci men Type: BLOOD SPECIMENOrdering Facility: [facility] Address: [address] [place], [place] [address] Performed By: #### 2 4323-8 ####[facility] LABCLIA [id number] [place] [address] [place] ESTIMATED GLOMERULAR FILTRATION RATE 109 mL/min/1.73m??? Normal >=60 [facility] Comment on above: Order Comment: Toyin judd Type: BLOOD SPECIMENOrdering Facility: [facility] Address: [address] [place] [address] Result Comment: Ara mated Glomerular Filtration Rate (eGFR) is calculated using the 2020 CKD-EPI creatinine equation. This equation utilizes serum creatinine, sex, and age as parameters. The creatinine assay has traceable calibration to isotope dilution-mass spectrometry. Refer to KDIGO guidelines for clinical interpretation. In patients with unstable renal function, e.g. those with acute kidney injury, the eGFR may not accurately reflect actual GFR. Performed By: #### 2 4323-8 ####[facility] LABIA [id number] [place] [address] [place] Glucose [Mass/Vol] 128 mg/dL High 74-99 [facility] Comment on above: Order Comment: Toyin judd Type: BLOOD SPECIMENOrdering Facility: [facility] Address: [address] [address] Result Comment: The [place] Diabetes Association (ADA) provides guidance for cutoff values for fasting glucose and random glucose. The ADA defines fasting as no caloric intake for at least 8 hours. Fasting plasma glucose results between 100 to 125 mg/dL indicate increased risk for diabetes (prediabetes). Fasting plasma glucose results greater than or equal to 126 mg/dL meet the criteria for diagnosis of diabetes. In the absence of unequivocal hyperglycemia, results should be confirmed by repeat testing. In a patient with classic symptoms of hyperglycemia or hyperglycemic crisis, random plasma glucose results greater than or equal to 200 mg/dL meet the criteria for diagnosis of diabetes. Reference: Standards of Medical Care in Diabetes 2016, [place] Diabetes Association. Diabetes Care. 2016.39(Suppl 1). Performed By: #### 2 4323-8 ####[facility] LABIA [id number] [place] [address] [place] Potassium [Moles/Vol] 4.3 mmol/L Normal 3.7-5.1 [facility] Comment on above: Order Comment: Toyin judd Type: BLOOD SPECIMENOrdering Facility: [facility] Address: [address] [address] Performed By: #### 2 4323-8 ####[facility] LABCLIA [id number] [place] [address] [place] Protein [Mass/Vol] 7.1 g/dL Normal 6.3-8.0 [facility] Comment on above: Order Comment: Speci men Type: BLOOD SPECIMENOrdering Facility: [facility] Address: [address] [place] [address] Performed By: #### 2 4323-8 ####[facility] LABCLIA [id number] [place] [address] [place] Sodium [Moles/Vol] 138 mmol/L Normal 136-144 [facility] Comment on above: Order Comment: Speci men Type: BLOOD SPECIMENOrdering Facility: [facility] Address: [address] [place] [address] Performed By: #### 2 4323-8 ####[facility] LABCLIA [id number] [place] [address] [place] Urea nitrogen [Mass/Vol] 10 mg/dL Normal 7-21 [facility] Comment on above: Order Comment: Speci men Type: BLOOD SPECIMENOrdering Facility: [facility] Address: [address] [place] [address] Performed By: #### 2 4323-8 ####[facility] LABCLIA [id number] [place] [address] [place] HISTORY PHYSICALon HISTORY PHYSICAL HNO ID: [id number] Author: Tere Barrett PA-C Service: ? Author Type: Physician Poultry Scalder Type: HANDP Filed: 03/18/2022 9:16 AM Note Text: HISTORY AND PHYSICAL EXAMINATION SERVICE DATE: 03/17/2022 SERVICE TIME: 8:43 AM PRIMARY CARE PHYSICIAN: Roselyn Ramirez CNP, [employer] REASON FOR VISIT: Johanna Castro is a 36 year old female who is scheduled for Procedure(s): LAPAROSCOPIC LONGITUDINAL GASTRECTOMY, GASTRIC RESTRICTIVE PROCEDURE (N/A) at the request of Dr. Real Bergman for consultation. My final recommendation will be communicated back to the requesting physician by way of shared medical record or letter. Subjective The patient has the following: ACTIVE PROBLEM LIST Htn (Hypertension) Type 2 Diabetes Mellitus (Hcc) Sarbjit's Thyroiditis Covid-19 Pots (Postural Orthostatic Tachycardia Syndrome) Tachycardia Mild Protein-Calorie Malnutrition (Hcc) Morbid Obesity (Hcc) Renal Calculus, Left Obesity, Class III, BMI >= 40 COVID-19 Immunization Status Overdue - COVID-19 VACCINE (1) Overdue - never done No completion, postpone, frequency change, or communication history exists for this topic. Patient reports being not vaccinated against COVID-19. Patient reports a prior COVID-19 infection, with an infection date of jan 2020june 2021. CHIEF COMPLAINT: gastric sleeve HPI: 36 yo female with history of obesity presenting to [facility] prior to gastric bypass surgery. REVIEW OF SYSTEMS: General: No weight loss, malaise or fevers. Neurological: No history of TIA's, stroke, CANE FEEDER tumor, impaired sensorium, hemiplegia, paraplegia or quadraplegia. No neurological symptoms or problems. Respiratory: No history of current cough or dyspnea, or pneumonia in the past 6 weeks. No history of respiratory/pulmonary symptoms or problems. Positive for: prior COVID-19 infection. Date of COVID-19 infection: jan 2020june 2021. Cardiovascular: POTs Positive for: hypertension Negative for: abdominal aortic aneurysm, AICD/PPM, angina, anticoagulation therapy, atrial fibrillation, CAD, chest pain, CHF, congenital heart defect, DVT/PE, hyperlipidemia, recent NH, murmur/valvular heart disease, PTCA, PVD, open heart surgery and valve surgery. GI: No history of GI symptoms or problems. No history of esophageal varices, recent ascites, or ETOH greater than 2 drinks per day. : Positive for: nephrolithiasis. Negative for: decreased stream, on dialysis, dysuria, flank pain, frequent urination, hematuria, hesitancy, urinary incontinence, indwelling catheter, renal failure, self catheterization, urgency and urinary tract infection. RADIATION ONCOLOGY THERAPIST: LMP 03/16/2022. Negative for abnormal vaginal bleeding, abnormal vaginal discharge. Endocrine: +Sarbjit's thyroiditis Positive for: diabetes mellitus. Patient's diabetes mellitus is controlled by oral agents. Negative for: diabetic neuropathy and steroid for chronic problem. Hematology: No history of bleeding or clotting disorder. Patient is not taking anti-coagulation or platelet medications. No history of hematological symptoms or problems. Oncology: No history of CA metastasis, chemo within 30 days, or radiotherapy within 90 days. No history of oncological symptoms or problems. Psych: No history of psychiatric symptoms or problems. Musculoskeletal: Negative for joint pain or swelling, back pain or muscle pain. Skin: Negative for lesions, rash and itching. PAST MEDICAL HISTORY Diagnosis Date Sarbjit's thyroiditis HTN (hypertension) Type 2 diabetes mellitus (HCC) PAST SURGICAL HISTORY Procedure Laterality Date APPENDECTOMY 2007 SECTION HX x 3 PAST SURGICAL HISTORY OF hysteroscopy DANTRE, LEEP PAST SURGICAL HISTORY OF kidney stone placed stent PCNL surgery to break it up FAMILY HISTORY Problem Relation Age of Onset Obesity Mother Diabetes Father Hypertension Father Obesity Sister Sister just had the sleeve June 2021 Obesity Sister Obesity Sister Obesity Sister Obesity Sister Obesity Sister Obesity Brother Obesity Brother No Ocular Disease No Family History Social History Tobacco Use Smoking status: Never Smokeless tobacco: Never Vaping Use Vaping Use: Never used Substance Use Topics Alcohol use: Never Comment: Confucianism Drug use: Never Prior to Admission medications as of 03/17/22 1228 Medication Sig Last Dose Taking amLODIPine (NORVASC) 5 mg tablet Take 5 mg by mouth daily at bedtime. Taking Yes propranolol (INDERAL) 20 mg tablet Take 1 tablet by mouth three times daily. Taking Yes metFORMIN (GLUCOPHAGE) 1,000 mg tablet Take 1 tablet by mouth twice daily with meals. Taking Yes oxyCODONE IR (ROXICODONE) 5 mg immediate release tablet Take 1 tablet by mouth every 8 hours as needed for pain. pantoprazole DR (PROTONIX) 40 mg tablet Take 1 tablet by mouth once daily. ondansetron (ZOFRAN) 4 mg tablet Take 1 tablet by mouth every 8 hours as needed for naus (more content not included)... Normal [facility] HbA1c (Bld)on 03-17-2022 Average glucose Estimated from glycated hemoglobin (Bld) [Mass/Vol] 131 mg/dL Normal [facility] Comment on above: Order Comment: Speci men Type: BLOOD SPECIMENOrdering Facility: [facility] Address: [address] [address] Result Comment: eAG: (Estimated average glucose) is a calculated value from HgbA1c and is public relations representative of the average blood glucose level in the last 2-3 month period. Performed By: #### 5 5454-3 ####[facility] LABCLIA [id number] [place] [address] [place] HbA1c (Bld) [Mass fraction] 6.2 % High 4.3-5.6 [facility] Comment on above: Order Comment: Speci men Type: BLOOD SPECIMENOrdering Facility: [facility] Address: [address] [place] [address] Result Comment: [place] Diabetes Association guidelines indicate that patients with HgbA1c in the range 5.7-6.4% are at increased risk for development of diabetes, and intervention by lifestyle modification may be beneficial. HgbA1c greater or equal to 6.5% is considered diagnostic of diabetes. Performed By: #### 5 5454-3 ####[facility] LABCLIA [id number] [place] [address] [place] TYPE AND SCREEN,30 DAYon ABO O Normal [facility] Comment on above: Order Comment: Speci men Type: BLOOD SPECIMENOrdering Facility: [facility] Address: [address] [place] [address] Performed By: #### T SCR30 ####[facility] B[facility] BANKCLIA [id number] [place] [address] [place] HISTORICAL AB SCR STATUS Negative Normal [facility] Comment on above: Order Comment: Speci men Type: BLOOD SPECIMENOrdering Facility: [facility] Address: [address] [place] [address] Performed By: #### T SCR30 ####[facility] BLOOD BANKCLIA [id number] [place] [address] [place] Rh Nom (Bld) Positive Normal [facility] Comment on above: Order Comment: Speci men Type: BLOOD SPECIMENOrdering Facility: [facility] Address: [address] [id number] Performed By: #### T SCR30 ####[facility] BLOOD BANKCLIA [id number] [facility]IL[facility]ENKarey [place] [address] [place] MICROALBUMIN URINEon 022 Albumin, Urine 42.7 ug/mL Normal Not Estab. [facility] Comment on above: Performed By: #### M ALBLC #### [facility] [address] [place] [address] Dr. Anita Mckeon CBC AUTO DIFFon 01-01-2022 BASO # 0.1 103/ul Normal 0.0-0.1 [facility] Comment on above: Performed By: #### C BC #### [facility] [address] [place] [address] Dr. Anita Mckeon Basophils/100 WBC (Bld) 0.6 % Normal 0.2-2.0 [facility] Comment on above: Performed By: #### C BC #### [facility] [address] [address] [address] Anita Mckeon EO # 0.1 103/ul Normal 0.0-0.7 [facility] Comment on above: Performed By: #### C BC #### [facility] [address] [address] [address] Anita Mckeon Eosinophils/100 WBC (Bld) 1.3 % Normal 0.9-7.0 [facility] Comment on above: Performed By: #### C BC #### [facility] [address] [place] [address] Dr. Anita Mckeon Erythrocyte distribution width (RBC) [Ratio] 13.3 % Normal 11.0-15.0 [facility] Comment on above: Performed By: #### C BC #### [facility] [address] [place] [address] Dr. Anita Mckeon Hematocrit (Bld) [Volume fraction] 39.6 % Normal 36.0-48.0 [facility] Comment on above: Performed By: #### C BC #### [facility] [address] [place] [address] Dr. Anita Mckeon Hemoglobin (Bld) [Mass/Vol] 13.1 g/dL Normal 12.0-16.0 [facility] Comment on above: Performed By: #### C BC #### [facility] [address] [place] [address] Dr. Anita Mckeon IG # 0.03 10e3/ul Normal 0.00-0.03 [facility] Comment on above: Performed By: #### C BC #### [facility] [address] [place] [address] Dr. Anita Mckeon IG % 0.3 % Normal 0.0-0.5 [facility] Comment on above: Performed By: #### C BC #### [facility] [address] [place] [address] Dr. Anita Mckeon LYMPH # 3.0 103/ul Normal 1.2-3.8 [facility] Comment on above: Performed By: #### C BC #### [facility] [address] [place] [address] Dr. Anita Mckeon Lymphocytes/100 WBC (Bld) 29.8 % Normal 20.5-60.0 [facility] Comment on above: Performed By: #### C BC #### [facility] [address] [place] [address] Dr. Anita Mckeon MANUAL DIFF REQ NO Normal [facility] Comment on above: Performed By: #### C BC #### [facility] [address] [place] [address] Dr. Anita Mckeon MCH (RBC) [Entitic mass] 30.3 pg Normal 26.7-34.0 [facility] Comment on above: Performed By: #### C BC #### [facility] [address] [place] [address] Dr. Anita Mckeon MCHC (RBC) [Mass/Vol] 33.1 g/dL Normal 29.9-35.2 [facility] Comment on above: Performed By: #### C BC #### [facility] [address] [place] [address] Dr. Anita Mckeon MCV (RBC) [Entitic vol] 91.7 fL Normal 81.0-99.0 [facility] Comment on above: Performed By: #### C BC #### [facility] [address] [place] [address] Dr. Anita Mckeon MONO # 0.4 103/ul Normal 0.3-0.8 [facility] Comment on above: Performed By: #### C BC #### [facility] [address] [place] [address] Dr. Anita Mckeon Monocytes/100 WBC (Bld) 4.4 % Normal 1.7-12.0 [facility] Comment on above: Performed By: #### C BC #### [facility] [address] [place] [address] Dr. Anita Mckeon NEUT # 6.4 103/ul Normal 1.4-6.5 [facility] Comment on above: Performed By: #### C BC #### [facility] [address] [place] [address] Dr. Anita Mckeon Neutrophils/100 WBC (Bld) 63.6 % Normal 43.0-75.0 [facility] Comment on above: Performed By: #### C BC #### [facility] [address] [place] [address] Dr. Anita Mckeon Platelet mean volume (Bld) [Entitic vol] 11.4 fL Normal 9.5-13.5 [facility] Comment on above: Performed By: #### C BC #### [facility] [address] [place] [address] Dr. Anita Mckeon PLT 344 103/ul Normal 150-450 [facility] Comment on above: Performed By: #### C BC #### [facility] [address] [place] [address] Dr. Anita Mckeon RBC 4.32 106/ul Normal 4.20-5.40 [facility] Comment on above: Performed By: #### C BC #### [facility] [address] [place] [address] Dr. Anita Mckeon WBC 10.1 103/ul Normal 4.0-11.0 [facility] Comment on above: Performed By: #### C BC #### [facility] [address] [place] [address] Dr. Anita Mckeon FREE T4on 01-01-2022 Free T4 [Mass/Vol] 1.18 ng/dL Normal 0.76-1.46 [facility] Comment on above: Performed By: #### F T4 #### [facility] [address] [place] [address] Dr. Anita Mckeon GLYCOHEMOGLOBIN A1Con 2021 ADA RECOMMENDATION SEE BELOW Normal [facility] Comment on above: Result Comment: ADA RECOMMENDED LIMIT 4.0 - 6.0 ADA THERAPEUTIC TARGET < 7.0 ACTION SUGGESTED > 7.0 Performed By: #### A 1C #### [facility] [address] [place] [address] Dr. Anita Mckeon Glucose [Mass/Vol] 148 mg/dL Normal [facility] Comment on above: Performed By: #### A 1C #### [facility] [address] [place] [address] Dr. Anita Mckoen HbA1c (Bld) [Mass fraction] 6.8 % Critically high 4.5-6.2 [facility] Comment on above: Performed By: #### A 1C #### [facility] [address] [place] [address] Dr. Anita Mckeon LIPID PROFILEon 01-01-2022 CHOL-HDL RATIO NORM SEE BELOW Normal [facility] Comment on above: Result Comment: 3.3 - 4.4 LOW RISK 4.4 - 7.1 AVERAGE RISK 7.1 - 11.0 MODERATE RISK >11.0 HIGH RISK Performed By: #### T SH, CMP, LIPID #### [facility] [address] [place] [address] Dr. Anita Mckeon Cholesterol [Mass/Vol] 152 mg/dL Normal <=200 [facility] Comment on above: Performed By: #### T SH, CMP, LIPID #### [facility] [address] [place] [address] Dr. Anita Mckeon Cholesterol in HDL [Mass/Vol] 40 mg/dL Normal 40-60 [facility] Comment on above: Performed By: #### T SH, CMP, LIPID #### [facility] [address] [address] [address] Anita Mckeon Cholesterol in LDL [Mass/Vol] 39.2 mg/dL Normal [facility] Comment on above: Performed By: #### T SH, CMP, LIPID #### [facility] [address] [address] [address] Anita Mckeon Cholesterol.total/ Cholesterol in HDL [Mass ratio] 3.8 {ratio} Normal [facility] Comment on above: Performed By: #### T SH, CMP, LIPID #### [facility] [address] [address] [address] Anita Mckeon HDL NORMAL > or = 60 mg/dl - LO W CARDIOVASCULAR RISK <40 mg/dl - HIGH CARDIOVASCULAR RISK Normal [facility] Comment on above: Performed By: #### T SH, CMP, LIPID #### [facility] [address] [place] [address] Dr. Anita Mckeon LDL CALC NORMAL SEE BELOW Normal [facility] Comment on above: Result Comment: <100 mg/dl OPTIMAL 100 - 129 mg/dl NEAR OR ABOVE OPTIMAL 130 - 159 mg/dl BORDERLINE HIGH 160 - 189 mg/dl HIGH >190 mg/dl VERY HIGH Performed By: #### T SH, CMP, LIPID #### [facility] [address] [address] [address] Anita Mckeon Triglyceride [Mass/Vol] 364 mg/dL Critically high <=150 [facility] Comment on above: Performed By: #### T SH, CMP, LIPID #### [facility] [address] [address] [address] Anita Mckeon VLDL CALC 72.8 mg/dL Normal [facility] Comment on above: Performed By: #### T SH, CMP, LIPID #### [facility] [address] [address] [address] Anita Mckeon PROF 14(COMP METB)on 022 Albumin [Mass/Vol] 3.6 g/dL Normal 3.4-5.0 [facility] Comment on above: Performed By: #### T SH, CMP, LIPID #### [facility] [address] [address] [address] Anita Mckeon Albumin/Globulin [Mass ratio] 1.0 {ratio} Normal [facility] Comment on above: Performed By: #### T SH, CMP, LIPID #### [facility] [address] [address] [address] Anita Mckeon ALP [Catalytic activity/Vol] 80 U/L Normal 46-116 [facility] Comment on above: Performed By: #### T SH, CMP, LIPID #### [facility] [address] [address] [address] Anita Mckeon ALT [Catalytic activity/Vol] 30 U/L Normal 14-59 [facility] Comment on above: Performed By: #### T SH, CMP, LIPID #### [facility] [address] [place] [address] Dr. Anita Mckeon Anion gap [Moles/Vol] 14.1 mmol/L Normal [facility] Comment on above: Performed By: #### T SH, CMP, LIPID #### [facility] [address] [place] [address] Dr. Anita Mckeon AST [Catalytic activity/Vol] 14 U/L Critically low 15-37 [facility] Comment on above: Performed By: #### T SH, CMP, LIPID #### [facility] [address] [address] [address] Anita Mckeon Bilirubin [Mass/Vol] 0.5 mg/dL Normal 0.2-1.0 [facility] Comment on above: Performed By: #### T SH, CMP, LIPID #### [facility] [address] [place] [address] Dr. Anita Mckeon Calcium [Mass/Vol] 8.8 mg/dL Normal 8.5-10.1 [facility] Comment on above: Performed By: #### T SH, CMP, LIPID #### [facility] [address] [place] [address] Dr. Anita Mckeon Chloride [Moles/Vol] 104 mmol/L Normal 98-107 [facility] Comment on above: Performed By: #### T SH, CMP, LIPID #### [facility] [address] [address] [address] Anita Mckeon CO2 [Moles/Vol] 25.8 mmol/L Normal 21.0-32.0 [facility] Comment on above: Performed By: #### T SH, CMP, LIPID #### [facility] [address] [address] [address] Anita Mckeon Creatinine [Mass/Vol] 0.85 mg/dL Normal 0.55-1.02 [facility] Comment on above: Performed By: #### T SH, CMP, LIPID #### [facility] [address] [place] [address] Dr. Anita Mckeon EGFR-AF ALGERIAN >60 Normal >=60 [facility] Comment on above: Performed By: #### T SH, CMP, LIPID #### [facility] [address] [place] [address] Dr. Anita Mckeon EGFR-NON AF ALGERIAN >60 Normal >=60 [facility] Comment on above: Performed By: #### T SH, CMP, LIPID #### [facility] [address] [place] [address] Dr. Anita Mckeon Globulin (S) [Mass/Vol] 3.6 g/dL Normal [facility] Comment on above: Performed By: #### T SH, CMP, LIPID #### [facility] [address] [place] [address] Dr. Anita Mckeon Glucose [Mass/Vol] 166 mg/dL Critically high 74-106 [facility] Comment on above: Performed By: #### T SH, CMP, LIPID #### [facility] [address] [place] [address] Dr. Anita Mckeon Potassium [Moles/Vol] 3.9 mmol/L Normal 3.5-5.1 [facility] Comment on above: Performed By: #### T SH, CMP, LIPID #### [facility] [address] [place] [address] Dr. Anita Mckeon Protein [Mass/Vol] 7.2 g/dL Normal 6.4-8.2 [facility] Comment on above: Performed By: #### T SAIDA CMP, LIPID #### [facility] [address] [place] [address] Dr. Anita Mckeon Sodium [Moles/Vol] 140 mmol/L Normal 136-145 [facility] Comment on above: Performed By: #### T SAIDA CMP, LIPID #### [facility] [address] [place] [address] Dr. Anita Mckeon Urea nitrogen [Mass/Vol] 14.0 mg/dL Normal 7.0-18.0 [facility] Comment on above: Performed By: #### T SAIDA CMP, LIPID #### [facility] [address] [place] [address] Dr. Anita Mckeon Urea nitrogen/Creatinin e [Mass ratio] 16.5 mg/mg Normal [facility] Comment on above: Performed By: #### T SAIDA CMP, LIPID #### [facility] [address] [place] [address] Dr. Anita Mckeon TSHon 01-01-2022 TSH 1.121 uIU/mL Normal 0.358-3.740 [facility] Comment on above: Performed By: #### M ALBR #### [facility] [address] [place] [address] Dr. Anita Mckeon UA RANDOM W/MICROSCOPICon BACTERIA MODERATE Abnormal NONE SEEN [facility] Comment on above: Performed By: #### M ALBR #### [facility] [address] [place] [address] Dr. Anita Mckeon Bilirubin Ql (U) Negative Normal NEGATIVE [facility] Comment on above: Performed By: #### M ALBR #### [facility] [address] [place] [address] Dr. Anita Mckeon CA OX CRYSTALS MODERATE Normal [facility] Comment on above: Performed By: #### M ALBR #### [facility] [address] [place] [address] Dr. Anita Mckeon CAST NONE SEEN Normal NONE SEEN [facility] Comment on above: Performed By: #### M ALBR #### [facility] [address] [address] [address] Anita Mckeon Clarity (U) CLEAR Normal CLEAR [facility] Comment on above: Performed By: #### M ALBR #### [facility] [address] [place] [address] Dr. Anita Mckeon Color (U) LT. YELLOW Normal YELLOW [facility] Comment on above: Performed By: #### M ALBR #### [facility] [address] [place] [address] Dr. Anita Mckeon Crystals LM Nom (Urine sed) SEEN Abnormal NONE SEEN [facility] Comment on above: Performed By: #### M ALBR #### [facility] [address] [place] [address] Dr. Anita Mckeon Epithelial cells LM Ql (Urine sed) FEW Abnormal NONE SEEN /RARE [facility] Comment on above: Performed By: #### M ALBR #### [facility] [address] [place] [address] Dr. Anita Mckeon Glucose Ql (U) Negative Normal NEGATIVE [facility] Comment on above: Performed By: #### M ALBR #### [facility] [address] [place] [address] Dr. Anita Mckeon Hemoglobin Ql (U) Negative Normal NEGATIVE [facility] Comment on above: Performed By: #### M ALBR #### [facility] [address] [place] [address] Dr. Anita Mckeon Ketones Ql (U) TRACE Abnormal NEGATIVE [facility] Comment on above: Performed By: #### M ALBR #### [facility] [address] [place] [address] Dr. Anita Mckeon LEUKOCYTES Negative Normal NEGATIVE [facility] Comment on above: Performed By: #### M ALBR #### [facility] [address] [place] [address] Dr. Anita Mckeon MUCOUS NONE SEEN Normal NONE SEEN [facility] Comment on above: Performed By: #### M ALBR #### [facility] [address] [place] [address] Dr. Anita Mckeon Nitrite Ql (U) Positive Abnormal NEGATIVE [facility] Comment on above: Performed By: #### M ALBR #### [facility] [address] [place] [address] Dr. Anita Mckeon pH (U) 6.0 [pH] Normal 5-9 [facility] Comment on above: Performed By: #### M ALBR #### [facility] [address] [place] [address] Dr. Anita Mckeon RBC 2-5 Abnormal 0-2 [facility] Comment on above: Performed By: #### M ALBR #### [facility] [address] [place] [address] Dr. Anita Mckeon SPEC GRAVITY >=1.030 Abnormal 1.005-<=1.02 5 [facility] Comment on above: Performed By: #### M ALBR #### [facility] [address] [place] [address] Dr. Anita Mckeon UA PROTEIN Negative Normal NEGATIVE/ TRACE [facility] Comment on above: Performed By: #### M ALBR #### [facility] [address] [place] [address] Dr. Anita Mckeon Urobilinogen Qn (U) 0.2 {Kayla'U}/dL Normal 0.2 - 1.0 [facility] Comment on above: Performed By: #### M ALBR #### [facility] [address] [place] [address] Dr. Anita Mckeon WBC 5-10 Abnormal NONE SEEN [facility] Comment on above: Performed By: #### M ALBR #### [facility] [address] [place] [address] CHEST W CONon 10-10-2021 CT CHEST W CON EXAMINATION: CT CHES T W CON HISTORY: Lung field abnormal COMPARISON: CT chest 06/04/2020, 02/15/2020 TECHNIQUE: Multi-planar CT images were created with IV contrast. Axial, Coronal, and Sagittal images. Dose reduction techniques were achieved by using automated exposure control and/or adjustment of mA and/or kV according to patient size and/or use of iterative reconstruction technique. FINDINGS: LUNGS: Stable 5 mm nodule within the posterior right upper lobe adjacent the pleural surface. Stable 12 x 4 mm nodule/opacity within anterior segment of left upper lobe. Lungs are otherwise clear. PLEURA: No mass, effusion, or pneumothorax. VASCULATURE: No abnormality. TONO: No mass or adenopathy. MEDIASTINUM: No mass or adenopathy. CARDIAC: No enlargement, pericardial thickening, or significant calcification. AORTA: No aneurysm or dissection. CHEST WALL: No mass or axillary adenopathy. BONES: No bone lesion or fracture. LIMITED ABDOMEN: No suspicious findings Limited images of the upper abdomen. OTHER: Negative. IMPRESSION: 1. 5 mm right upper lobe nodule and 12 x 4 mm left upper lobe nodule which have been present and stable since the patient's earliest available study on 02/15/2020. Given nearly 2 years of stability, these likely represent benign nodules/granulomas. No additional follow-up recommended unless patient is at increased risk for lung cancer. Electronically authenticated by: SHILPA MACIEL Date: 2021-10-10 07:41 Normal [facility] CREATININEon 10-09-2021 Creatinine [Mass/Vol] 0.89 mg/dL Normal 0.55-1.02 [facility] Comment on above: Performed By: #### P THINT #### [facility] [address] [address] [address] Anita Mckeon EGFR-AF ALGERIAN >60 Normal >=60 [facility] Comment on above: Performed By: #### P THINT #### [facility] [address] [address] [address] Anita Mckeon EGFR-NON AF ALGERIAN >60 Normal >=60 [facility] Comment on above: Performed By: #### P THINT #### [facility] [address] [address] [address] Anita Mckeon CBC W Auto Differential pane l (Bld)on 07-03-2021 Basophils (Bld) [#/Vol] 0.05 10*3/uL Normal <0.11 [facility] Comment on above: Order Comment: Speci men Type: BLOOD SPECIMEN Ordering Facility: [facility] Address: [address] [address] Performed By: #### 5 7021-8 #### [facility] [place] [id number] [address] [place] [address] [place] Basophils/100 WBC (Bld) 0.5 % Normal [facility] Comment on above: Order Comment: Speci men Type: BLOOD SPECIMEN Ordering Facility: [facility] Address: [address] [place] [address] Performed By: #### 5 7021-8 #### [facility] [place] [id number] [address] [place] [address] [place] Differential cell count method Nom (Bld) Auto Normal [facility] Comment on above: Order Comment: Speci men Type: BLOOD SPECIMEN Ordering Facility: [facility] Address: [address] [place] [address] Performed By: #### 5 7021-8 #### [facility] [place] [id number] [address] [place] [address] [place] Eosinophils (Bld) [#/Vol] 0.08 10*3/uL Normal <0.46 [facility] Comment on above: Order Comment: Speci men Type: BLOOD SPECIMEN Ordering Facility: [facility] Address: [address] [place] [address] Performed By: #### 5 7021-8 #### [facility] [place] [id number] [address] [place] [address] [place] Eosinophils/100 WBC (Bld) 0.8 % Normal [facility] Comment on above: Order Comment: Speci men Type: BLOOD SPECIMEN Ordering Facility: [facility] Address: [address] [place] [address] Performed By: #### 5 7021-8 #### [facility] [place] [id number] [address] [place] [address] [place] Erythrocyte distribution width (RBC) [Ratio] 15.5 % High 11.5-15.0 [facility] Comment on above: Order Comment: Speci men Type: BLOOD SPECIMEN Ordering Facility: [facility] Address: [address] [place] [address] Performed By: #### 5 7021-8 #### [facility] [place] [id number] [facility] Hematocrit (Bld) [Volume fraction] 41.2 % Normal 36.0-46.0 [facility] Comment on above: Order Comment: Speci men Type: BLOOD SPECIMEN Ordering Facility: [facility] Address: [address] [place] [address] Performed By: #### 5 7021-8 #### [facility] [place] [id number] [address] [place] [address] [place] Hemoglobin (Bld) [Mass/Vol] 13.6 g/dL Normal 11.5-15.5 [facility] Comment on above: Order Comment: Speci men Type: BLOOD SPECIMEN Ordering Facility: [facility] Address: [address] [place] [address] Performed By: #### 5 7021-8 #### [facility] [place] [id number] [address] [place] [address] [place] IMMATURE GRAN % 0.4 % Normal [facility] Comment on above: Order Comment: Speci men Type: BLOOD SPECIMEN Ordering Facility: [facility] Address: [address] [place] [address] Performed By: #### 5 7021-8 #### [facility] [place] [id number] [address] [place] IMMATURE GRAN ABS 0.04 k/uL Normal <0.10 [facility] Comment on above: Order Comment: Speci men Type: BLOOD SPECIMEN Ordering Facility: [facility] Address: [address] [place] [address] Performed By: #### 5 7021-8 #### [facility] [place] [id number] [address] [place] [address] [place] Lymphocytes (Bld) [#/Vol] 3.48 10*3/uL Normal 1.00-4.00 [facility] Comment on above: Order Comment: Speci men Type: BLOOD SPECIMEN Ordering Facility: [facility] Address: [address] [place], [place] [address] Performed By: #### 5 7021-8 #### [facility] CLIA [id number] [place] Lymphocytes/100 WBC (Bld) 35.0 % Normal [facility] Comment on above: Order Comment: Speci men Type: BLOOD SPECIMEN Ordering Facility: [facility] Address: [address] [place], [place] [address] Performed By: #### 5 7021-8 #### [facility] [place] [id number] [address] [place] [address] [place] MCH (RBC) [Entitic mass] 28.2 pg Normal 26.0-34.0 [facility] Comment on above: Order Comment: Speci men Type: BLOOD SPECIMEN Ordering Facility: [facility] Address: [address] [place], [place] [address] Performed By: #### 5 7021-8 #### [facility] [place] [id number] [address] [place] [address] [place] MCHC (RBC) [Mass/Vol] 33.0 g/dL Normal 30.5-36.0 [facility] Comment on above: Order Comment: Speci men Type: BLOOD SPECIMEN Ordering Facility: [facility] Address: [address] [place], [place] [address] Performed By: #### 5 7021-8 #### [facility] [place] [id number] [address] [place] MCV (RBC) [Entitic vol] 85.3 fL Normal 80.0-100.0 [facility] Comment on above: Order Comment: Speci men Type: BLOOD SPECIMEN Ordering Facility: [facility] Address: [address] [place], [place] [address] Performed By: #### 5 7021-8 #### [facility] CLIA [id number] [facility] [place] [address] [place] Monocytes (Bld) [#/Vol] 0.38 10*3/uL Normal <0.87 [facility] Comment on above: Order Comment: Speci men Type: BLOOD SPECIMEN Ordering Facility: [facility] Address: [address] [place] [address] Performed By: #### 5 7021-8 #### [facility] CLIA [id number] [address] [place] [address] [place] Monocytes/100 WBC (Bld) 3.8 % Normal [facility] Comment on above: Order Comment: Speci men Type: BLOOD SPECIMEN Ordering Facility: [facility] Address: [address] [place] [address] Performed By: #### 5 7021-8 #### [facility] [place] [id number] [address] [place] [address] [place] Neutrophils (Bld) [#/Vol] 5.92 10*3/uL Normal 1.45-7.50 [facility] Comment on above: Order Comment: Speci men Type: BLOOD SPECIMEN Ordering Facility: [facility] Address: [address] [place] [address] Performed By: #### 5 7021-8 #### [facility] [place] [id number] [address] [place] [address] [place] Neutrophils/100 WBC (Bld) 59.5 % Normal [facility] Comment on above: Order Comment: Speci men Type: BLOOD SPECIMEN Ordering Facility: [facility] Address: [address] [place], [place] [address] Performed By: #### 5 7021-8 #### [facility] [place] [id number] [address] [place] [address] [place] Nucleated RBC (Bld) [#/Vol] 10*3/uL Normal <0.01 [facility] Comment on above: Order Comment: Speci men Type: BLOOD SPECIMEN Ordering Facility: [facility] Address: [address] Performed By: #### 5 7021-8 #### [facility] [place] [id number] [address] [place] [address] [place] Nucleated RBC/100 WBC (Bld) [Ratio] 0.0 /100 WBC Normal [facility] Comment on above: Order Comment: Speci men Type: BLOOD SPECIMEN Ordering Facility: [facility] Address: [address] [place], [place] [address] Performed By: #### 5 7021-8 #### [facility] [place] [id number] [address] [place] [address] [place] Platelet mean volume (Bld) [Entitic vol] 11.3 fL Normal 9.0-12.7 [facility] Comment on above: Order Comment: Speci men Type: BLOOD SPECIMEN Ordering Facility: [facility] Address: [address] [place], [place] [address] Performed By: #### 5 7021-8 #### [facility] [place] [id number] [address] [place] [address] [place] Platelets (Bld) [#/Vol] 372 10*3/uL Normal 150-400 [facility] Comment on above: Order Comment: Speci men Type: BLOOD SPECIMEN Ordering Facility: [facility] Address: [address] [place], [place] [address] Performed By: #### 5 7021-8 #### [facility] [place] [id number] [address] [place] [address] [place] RBC (Bld) [#/Vol] 4.83 10*6/uL Normal 3.90-5.20 [facility] Comment on above: Order Comment: Speci men Type: BLOOD SPECIMEN Ordering Facility: [facility] Address: [address] [place], [place] [address] Performed By: #### 5 7021-8 #### [facility] [place] [id number] [address] [place] [address] [place] WBC (Bld) [#/Vol] 9.95 10*3/uL Normal 3.70-11.00 [facility] Comment on above: Order Comment: Speci men Type: BLOOD SPECIMEN Ordering Facility: [facility] Address: [address] [address] Performed By: #### 5 7021-8 #### [facility] CLIA [id number] [address] [facility] [place] [address] [facility] Cholesterol in LDL Direct as say [Mass/Vol]on 07-03-2021 Cholesterol in LDL [Mass/Vol] 54 mg/dL Normal <100 [facility] Comment on above: Order Comment: Speci men Type: BLOOD SPECIMEN Ordering Facility: [facility] Address: [address] [place], [place] [address] [address] Result Comment: <100 mg/dL, Optimal 100-129 mg/dL, Near optimal/above optimal 130-159 mg/dL, Borderline high 160-189 mg/dL, High >189 mg/dL, Very high Secondary prevention optimal LDL Cholesterol levels are recommended to be < 70 mg/dL Performed By: #### L IPB, 3016-3, IRON, 14194-6, 44225-2 #### [facility] CLIA [id number] [address] [facility] [place] [address] [place] [facility] Cholesterol in VLDL [Mass/Vol] 43 mg/dL High <30 [facility] Comment on above: Order Comment: Speci men Type: BLOOD SPECIMEN Ordering Facility: [facility] Address: [address] Performed By: #### L IPB, 3016-3, IRON, 60801-2, 18276-2 #### [facility] CLIA [id number] [address] [facility] [place] [address] [facility] [place] Comprehensive metabolic 2000 panelon 07-03-2021 Albumin [Mass/Vol] 4.3 g/dL Normal 3.9-4.9 [facility] Comment on above: Order Comment: Speci men Type: BLOOD SPECIMEN Ordering Facility: [facility] Address: [address] [address] Performed By: #### L IPB, 3016-3, IRON, 31517-7, 72573-8 #### [facility] CLIA [id number] [address] [place] [address] [place] ALP [Catalytic activity/Vol] 78 U/L Normal 34-123 [facility] Comment on above: Order Comment: Speci men Type: BLOOD SPECIMEN Ordering Facility: [facility] Address: [address] [place] [address] Performed By: #### L IPB, 3016-3, IRON, 15319-9, 06954-0 #### [facility] CLIA [id number] [address] [place] [address] [place] ALT [Catalytic activity/Vol] 25 U/L Normal 7-38 [facility] Comment on above: Order Comment: Speci men Type: BLOOD SPECIMEN Ordering Facility: [facility] Address: [address] [place] [address] Performed By: #### L IPB, 3016-3, IRON, 42712-9, 62773-4 #### [facility] CLIA [id number] [address] [place] [address] [place] Anion gap [Moles/Vol] 16 mmol/L Normal 9-18 [facility] Comment on above: Order Comment: Speci men Type: BLOOD SPECIMEN Ordering Facility: [facility] Address: [address] [place] [address] Performed By: #### L IPB, 3016-3, IRON, 80788-0, 91235-5 #### [facility] CLIA [id number] [address] [place] [address] [place] AST [Catalytic activity/Vol] 29 U/L Normal 13-35 [facility] Comment on above: Order Comment: Speci men Type: BLOOD SPECIMEN Ordering Facility: [facility] Address: [address] [place], [place] [address] Performed By: #### L IPB, 3016-3, IRON, 10349-4, 14502-3 #### [facility] CLIA [id number] [address] [place] [address] [place] Bilirubin [Mass/Vol] 0.4 mg/dL Normal 0.2-1.3 [facility] Comment on above: Order Comment: Speci men Type: BLOOD SPECIMEN Ordering Facility: [facility] Address: [address] [place] [address] Performed By: #### L IPB, 3016-3, IRON, 35011-7, 78511-3 #### [facility] CLIA [id number] [address] [place] [address] [place] Calcium [Mass/Vol] 9.4 mg/dL Normal 8.5-10.2 [facility] Comment on above: Order Comment: Speci men Type: BLOOD SPECIMEN Ordering Facility: [facility] Address: [address] [place] [address] Performed By: #### L IPB, 3016-3, IRON, 55516-9, 93150-5 #### [facility] CLIA [id number] [address] [place] [address] [place] Chloride [Moles/Vol] 100 mmol/L Normal 97-105 [facility] Comment on above: Order Comment: Speci men Type: BLOOD SPECIMEN Ordering Facility: [facility] Address: [address] [place] [address] Performed By: #### L IPB, 3016-3, IRON, 29764-3, 01994-0 #### [facility] CLIA [id number] [address] [facility] [place] [address] [place] CO2 [Moles/Vol] 20 mmol/L Low 22-30 [facility] Comment on above: Order Comment: Speci men Type: BLOOD SPECIMEN Ordering Facility: [facility] Address: [address] [place] [address] Performed By: #### L IPB, 3016-3, IRON, 04381-8, 35944-0 #### [facility] CLIA [id number] [address] [place] [address] [place] Creatinine [Mass/Vol] 0.70 mg/dL Normal 0.58-0.96 [facility] Comment on above: Order Comment: Toyin judd Type: BLOOD SPECIMEN Ordering Facility: [facility] Address: [address] [id number] Performed By: #### L IPB, 3016-3, IRON, 54640-9, 51190-2 #### [facility] CLIA [id number] [address] [facility] [place], [place] [address] [place] [address] [place] ESTIMATED GLOMERULAR FILTRATION RATE 115 mL/min/1.73m??? Normal >=60 [facility] Comment on above: Order Comment: Toyin judd Type: BLOOD SPECIMEN Ordering Facility: [facility] Address: [address] [place] [address] Result Comment: Ara mated Glomerular Filtration Rate (eGFR) is calculated using the 2020 CKD-EPI creatinine equation. This equation utilizes serum creatinine, sex, and age as parameters. The creatinine assay has traceable calibration to isotope dilution-mass spectrometry. Refer to KDIGO guidelines for clinical interpretation. In patients with unstable renal function, e.g. those with acute kidney injury, the eGFR may not accurately reflect actual GFR. Performed By: #### L IPB, 3016-3, IRON, 79228-7, 44279-3 #### [facility] CLIA [id number] [address] [facility] [place] [address] [place] Glucose [Mass/Vol] 178 mg/dL High 74-99 [facility] Comment on above: Order Comment: Toyin judd Type: BLOOD SPECIMEN Ordering Facility: [facility] Address: [address] Result Comment: The [place] Diabetes Association (ADA) provides guidance for cutoff values for fasting glucose and random glucose. The ADA defines fasting as no caloric intake for at least 8 hours. Fasting plasma glucose results between 100 to 125 mg/dL indicate increased risk for diabetes (prediabetes). Fasting plasma glucose results greater than or equal to 126 mg/dL meet the criteria for diagnosis of diabetes. In the absence of unequivocal hyperglycemia, results should be confirmed by repeat testing. In a patient with classic symptoms of hyperglycemia or hyperglycemic crisis, random plasma glucose results greater than or equal to 200 mg/dL meet the criteria for diagnosis of diabetes. Reference: Standards of Medical Care in Diabetes 2016, [place] Diabetes Association. Diabetes Care. 2016.39(Suppl 1). Performed By: #### L IPB, 3016-3, IRON, 47651-8, 62781-8 #### [facility] CLIA [id number] [address] [place] [address] [place] Potassium [Moles/Vol] 4.2 mmol/L Normal 3.7-5.1 [facility] Comment on above: Order Comment: Speci men Type: BLOOD SPECIMEN Ordering Facility: [facility] Address: [address] [place] [address] Performed By: #### L IPB, 3016-3, IRON, 73339-4, 07482-3 #### [facility] CLIA [id number] [address] [place] [address] [place] Protein [Mass/Vol] 7.3 g/dL Normal 6.3-8.0 [facility] Comment on above: Order Comment: Speci men Type: BLOOD SPECIMEN Ordering Facility: [facility] Address: [address] [place] [address] Performed By: #### L IPB, 3016-3, IRON, 97305-3, 85736-6 #### [facility] CLIA [id number] [address] [place] [address] [place] Sodium [Moles/Vol] 136 mmol/L Normal 136-144 [facility] Comment on above: Order Comment: Speci men Type: BLOOD SPECIMEN Ordering Facility: [facility] Address: [address] Performed By: #### L IPB, 3016-3, IRON, 18648-3, 37295-9 #### [facility] CLIA [id number] [address] [place] [address] [place] Urea nitrogen [Mass/Vol] 12 mg/dL Normal 7-21 [facility] Comment on above: Order Comment: Speci men Type: BLOOD SPECIMEN Ordering Facility: [facility] Address: [address] [place] [address] Performed By: #### L IPB, 3016-3, IRON, 64707-8, 79105-7 #### [facility] CLIA [id number] [address] [facility] [place] [address] [place] Folate SerPl-mCncon 07-04-19 Folate [Mass/Vol] ng/mL Normal >4.7 [facility] Comment on above: Order Comment: Toyin judd Type: BLOOD SPECIMEN Ordering Facility: [facility] Address: [address] [place] [address] Result Comment: A re sult of > 20 ng/mL is not necessarily indicative of a pathologic or treatable condition: it reflects a limitation of the test methodology. Assay reference range: 4.8 to 24.2 ng/mL. Suitable for detection of folate deficiency. Reference: Folate III (Folate III) [package insert V 1.0 Danish]. [employer], [place], [place]: February 2015. Performed By: #### B 12, 2284-8 #### [facility] CLIA [id number] [address] [place] [address] [place] HGB A1Con 07-03-2021 Average glucose Estimated from glycated hemoglobin (Bld) [Mass/Vol] 143 mg/dL Normal [facility] Comment on above: Order Comment: Toyin judd Type: BLOOD SPECIMEN Ordering Facility: [facility] Address: [address] [place], [place] [address] Result Comment: eAG: (Estimated average glucose) is a calculated value from HgbA1c and is public relations representative of the average blood glucose level in the last 2-3 month period. Performed By: #### H BA1C #### [facility] CLIA [id number] [address] [place] [address] [place] [address] [place] HbA1c (Bld) [Mass fraction] 6.6 % High 4.3-5.6 [facility] Comment on above: Order Comment: Toyin judd Type: BLOOD SPECIMEN Ordering Facility: [facility] Address: [address] [place], [place] [address] Result Comment: Amer [place] Diabetes Association guidelines indicate that patients with HgbA1c in the range 5.7-6.4% are at increased risk for development of diabetes, and intervention by lifestyle modification may be beneficial. HgbA1c greater or equal to 6.5% is considered diagnostic of diabetes. Performed By: #### H BA1C #### [facility] CLIA [id number] [address] [facility] [id number] [facility] IRON + TIBCon 07-03-2021 Iron [Mass/Vol] 99 ug/dL Normal 41-186 [facility] Comment on above: Order Comment: Speci men Type: BLOOD SPECIMEN Ordering Facility: [facility] Address: [address] [place] [address] Performed By: #### L IPB, 3016-3, IRON, 14843-3, 56245-9 #### [facility] CLIA [id number] [address] [place], [place] [address] [place] [address] [place] Iron binding capacity [Mass/Vol] 480 ug/dL High 232-386 [facility] Comment on above: Order Comment: Speci men Type: BLOOD SPECIMEN Ordering Facility: [facility] Address: [address] [place] [address] Performed By: #### L IPB, 3016-3, IRON, 21522-2, 35857-5 #### [facility] CLIA [id number] [address] [place] [address] [facility] Iron/TIBC [Molar ratio] 21 % Normal 15-57 [facility] Comment on above: Order Comment: Speci men Type: BLOOD SPECIMEN Ordering Facility: [facility] Address: [address] [place], [place] [address] Performed By: #### L IPB, 3016-3, IRON, 68651-2, 98718-7 #### [facility] CLIA [id number] [address] [place] [address] [place] LIPID PANEL BASIC 07-04-19 22 Cholesterol [Mass/Vol] 131 mg/dL Normal <200 [facility] Comment on above: Order Comment: Speci men Type: BLOOD SPECIMEN Ordering Facility: [facility] Address: [address] [place] [address] Result Comment: <200 mg/dL, Desirable 200-239 mg/dL, Borderline high >239 mg/dL, High Performed By: #### L IPB, 3016-3, IRON, 01341-8, 00170-8 #### [facility] CLIA [id number] [address] [facility] [place] [address] [place] Cholesterol in HDL [Mass/Vol] 34 mg/dL Low >39 [facility] Comment on above: Order Comment: Speci binta Type: BLOOD SPECIMEN Ordering Facility: [facility] Address: [address] [place] [address] Result Comment: 40-5 9 mg/dL, Acceptable >59 mg/dL, High: Negative risk factor for coronary heart disease <40 mg/dL, Low: Positive risk factor for coronary heart disease Performed By: #### L IPB, 3016-3, IRON, 02327-3, 17824-7 #### [facility] CLIA [id number] [address] [facility] [place] [address] [place] Cholesterol in LDL [Mass/Vol] Normal [facility] Comment on above: Order Comment: Speci binta Type: BLOOD SPECIMEN Ordering Facility: [facility] Address: [address] [place] [address] Result Comment: Unab le to calculate due to increased Triglycerides. See LDL-Chol, Direct. Performed By: #### L IPB, 3016-3, IRON, 15916-0, 65776-0 #### [facility] CLIA [id number] [address] [facility] [place] [address] [place] Cholesterol in LDL/Cholesterol in HDL [Mass ratio] Normal [facility] Comment on above: Order Comment: Speci men Type: BLOOD SPECIMEN Ordering Facility: [facility] Address: [address] [place] [address] Result Comment: Unab le to calculate due to elevated Triglycerides. Reference: 1. National Cholesterol Education Program ATP III Guideline At-A-Glance Quick Desk Reference: National Heart, Lung, and Blood [employer]. National Institutes of Health. 2001: NIH Publication No. 01-3305. 2. An International Atherosclerosis Society position paper: global recommendations for the management of dyslipidemia: executive summary, Atherosclerosis. 2014: 232(2):410-413. Performed By: #### L IPB, 3016-3, IRON, 24861-6, 84604-9 #### [facility] CLIA [id number] [address] [facility] [place] [address] [place] Cholesterol in VLDL [Mass/Vol] Normal [facility] Comment on above: Order Comment: Speci men Type: BLOOD SPECIMEN Ordering Facility: [facility] Address: [address] [place] [address] Result Comment: Unab le to calculate due to increased Triglycerides. See LDL-Chol, Direct. Performed By: #### L IPB, 3016-3, IRON, 60339-9, 79998-9 #### [facility] CLIA [id number] [address] [facility] [place] [address] [place] Cholesterol non HDL [Mass/Vol] 97 mg/dL Normal <130 [facility] Comment on above: Order Comment: [facility] Type: BLOOD SPECIMEN Ordering Facility: [facility] Address: [address] [address] Result Comment: <130 mg/dL, Optimal 130-159 mg/dL, Near optimal/above optimal 160-189 mg/dL, Borderline high 190-219 mg/dL, High >219 mg/dL, Very high Secondary prevention optimal non HDL Cholesterol levels are recommended to be <100 mg/dL Performed By: #### L IPB, 3016-3, IRON, 08367-5, 76326-1 #### [facility] CLIA [id number] [address] [facility] [place] [address] [place] Cholesterol.total/ Cholesterol in HDL [Mass ratio] 3.85 {ratio} Normal <5.10 [facility] Comment on above: Order Comment: [facility] Type: BLOOD SPECIMEN Ordering Facility: [facility] Address: [address] [address] Performed By: #### L IPB, 3016-3, IRON, 56529-7, 52103-5 #### [facility] CLIA [id number] [address] [place] [address] [place] FASTING TIME 16 hrs Normal [facility] Comment on above: Order Comment: Speci men Type: BLOOD SPECIMEN Ordering Facility: [facility] Address: [address] [place] [address] Performed By: #### L IPB, 3016-3, IRON, 81554-8, 16008-7 #### [facility] CLIA [id number] [address] [place] [address] [place] Triglyceride [Mass/Vol] 402 mg/dL High <150 [facility] Comment on above: Order Comment: Speci men Type: BLOOD SPECIMEN Ordering Facility: [facility] Address: [address] [place] [address] Result Comment: <150 mg/dL, Normal 150-199 mg/dL, Borderline high 200-499 mg/dL, High >499 mg/dL, Very high Performed By: #### L IPB, 3016-3, IRON, 17980-6, 64795-3 #### [facility] CLIA [id number] [address] [place] [address] [place] PTH INTACT [facility] 07-03-2021 Parathyrin.intact [Mass/Vol] 23 pg/mL Normal 15-65 [facility] Comment on above: Order Comment: Speci men Type: BLOOD SPECIMEN Ordering Facility: [facility] Address: [address] [place] [address] Performed By: #### L IPB, 3016-3, IRON, 17759-5, 63054-5 #### [facility] CLIA [id number] [address] [place] [address] [place] TSH SerPl-aCncon 07-03-2021 TSH Qn 1.330 m[IU]/L Normal 0.270-4.200 [facility] Comment on above: Order Comment: Speci men Type: BLOOD SPECIMEN Ordering Facility: [facility] Address: [address] [place] [address], [place] [address] Result Comment: If t he patient is , TSH reference range varies by gestational period: First Trimester (weeks 9-12): 0.180-2.990 mIU/L Second Trimester: 0.110-3.980 mIU/L Third Trimester: 0.480-4.710 mIU/L Deion Em et al. A Practical Approach for the Verifications and Determination of Site- and Trimester-Specific Reference Intervals for Thyroid Function tests in . Thyroid, 2019:29:3:412-420. Juan Carlos Eaton, et al. 2017 Guidelines of the [place] Thyroid Association for the Diagnosis and Management of Thyroid Disease during and the . Thyroid, 2017:27:3:315-389. Performed By: #### L IPB, 3016-3, IRON, 30747-9, 79057-1 #### [facility] CLIA [id number] [address] [facility] [place] [address] [place] VITAMIN B1 (THIAMINE), WHOLE BLOODon 07-03-2021 Thiamine (Bld) [Moles/Vol] 210.4 nmol/L Normal 84.3-213.3 [facility] Comment on above: Order Comment: Speci men Type: BLOOD SPECIMEN Ordering Facility: [facility] Address: [address] [id number] Result Comment: This assay measures the concentration of thiamine diphosphate (TDP), the primary active form of vitamin B1. Approximately 90 percent of vitamin B1 present in whole blood is TDP. Thiamine and thiamine monophosphate, which comprise the remaining 10 percent, are not measured. This test was developed and its performance characteristics determined by [facility]'s Mauricio JJayant [facility] Pathology and Laboratory Medicine [place] (RT-PLMI). It has not been cleared or approved by the FDA. -[facility] is regulated under CLIA as qualified to perform high-complexity testing. This test is used for clinical purposes. It should not be regarded as investigational or for research. Performed By: #### L IPB, 3016-3, IRON, 11539-6, 05756-1 #### [facility] CLIA [id number] [address] [facility] [place] [address] [place] VITAMIN B12 BLOODon 07-04-19 Cobalamin (Vitamin B12) [Mass/Vol] 513 pg/mL Normal 232-1,245 [facility] Comment on above: Order Comment: Soniai men Type: BLOOD SPECIMEN Ordering Facility: [facility] Address: [address] [place] [address] Performed By: #### B 12, 2284-8 #### [facility] CLIA [id number] [address] [facility] [place] [address] [place] VITAMIN D 25 HYDROXYon 07-03 25-hydroxyvitamin D3 [Mass/Vol] 33.7 ng/mL Normal 31.0-80.0 [facility] Comment on above: Order Comment: Soniai men Type: BLOOD SPECIMEN Ordering Facility: [facility] Address: [address] [place] [address] Result Comment: Clas sification of 25 [place] Vitamin D status: Deficiency/Insufficiency: < or = 30 ng/ml. Sufficiency/Optimal Levels: 31-80 ng/mL Toxicity: > 100 ng/mL. Test performed by chemiluminescent immunoassay. Performed By: #### V ITD #### [facility] CLIA [id number] [address] [facility] [id number] [place] [address] [place] Basic Metabolic Panlon 05-22 Anion gap [Moles/Vol] 12 mmol/L Normal 9-18 [facility] Calcium [Mass/Vol] 8.6 mg/dL Normal 8.5-10.2 [facility] Chloride [Moles/Vol] 100 mmol/L Normal 97-105 [facility] CO2 [Moles/Vol] 22 mmol/L Normal 22-33 [facility] Creatinine [Mass/Vol] 0.77 mg/dL Normal 0.58-0.96 [facility] eGFR- Amer. >60 Normal [facility] eGFR-All Other Races >60 Normal [facility] Comment on above: Result Comment: eGFR (Estimated GFR) Units of measure: mL/min/1.73 meters squared eGFR is derived from the reexpressed MDRD Study equation using the following parameters: serum creatinine, age, gender and race. The creatinine assay has been calibrated to be traceable to IDMS. An eGFR <60 mL/min/1.73m2 for >3 months is consistent with chronic kidney disease. Refer to KDOQI guidelines for clinical interpretation. In patients with unstable renal function, e.g. those with acute kidney injury, the eGFR may not accurately reflect actual GFR. Note: On 06/15/2021, the eGFR calculation will be updated to the NKF-ASN Task Force recommended 2020 CKD-EPI creatinine equation which does not include a race variable. For more information or to access a 2020 CKD-EPI calculator, visit the National Kidney Foundation website at kidney.org/professionals/kdoqi/gfr_calculator. Glucose [Mass/Vol] 213 mg/dL High 74-99 [facility] Potassium [Moles/Vol] 4.0 mmol/L Normal 3.7-5.1 [facility] Sodium [Moles/Vol] 134 mmol/L Low 136-144 [facility] Urea nitrogen [Mass/Vol] 9 mg/dL Normal 7-21 [facility] CBCon 05-22-2021 Absolute nRBC <0.01 Normal <0.01 [facility] Erythrocyte distribution width (RBC) [Ratio] 16.9 % High 11.5-15.0 [facility] Hematocrit (Bld) [Volume fraction] 30.6 % Low 36.0-46.0 [facility] Hemoglobin (Bld) [Mass/Vol] 9.4 g/dL Low 11.5-15.5 [facility] MCH 27.4 pG Normal 26.0-34.0 [facility] MCHC (RBC) [Mass/Vol] 30.7 g/dL Normal 30.5-36.0 [facility] MCV (RBC) [Entitic vol] 89.2 fL Normal 80.0-100.0 [facility] Platelet mean volume (Bld) [Entitic vol] 10.9 fL Normal 9.0-12.7 [facility] Platelets (Bld) [#/Vol] 255 10*3/uL Normal 150-400 [facility] RBC (Bld) [#/Vol] 3.43 10*6/uL Low 3.90-5.20 [facility] WBC (Bld) [#/Vol] 12.67 10*3/uL High 3.70-11.00 [facility] HNO ID: [id number] Author: Taqueria Yancey MD Service: Urology Author Type: Resident Type: Discharge Summary Filed: 05/22/2021 8:56 AM Note Text: Attestation signed by Citlaly Francois MD at 05/22/2021 10:32 AM Citlaly Francois MD DISCHARGE SUMMARY UROLOGY PATIENT NAME: Johanna Castro ADMISSION DATE: 05/21/2021 DISCHARGE DATE: 05/22/2021 Attending Physician: Citlaly Francois MD Code Status: Not on file Highest Readmission Risk Score: 17 The 30 day readmissions risk score is derived from an internally validated risk model which evaluates patient level characteristics, utilization history, medication orders and lab results up until the day of discharge. Patients with a score of 40 or above are considered highest risk for readmission. Specific patient level drivers will be listed at the bottom of the summary. Reason for Hospitalization: Active Problems: Renal calculus, left POA: Unknown Resolved Problems: * No resolved hospital problems. * Operations During Hospitalization: LEFT Percutaneous Nephrolithotomy, left antegrade ureteral stent placement 6Fr x26cm Procedures During Hospitalization: Intubation General Anesthesia Hospital Course: The patient was admitted for staghorn left renal nephrolithiasis. During the course of the hospital stay, the patient underwent the above procedure without complications and postoperatively was taken to the recovery area and subsequently to the regular nursing floor. Pain control was achieved via IV/PRN pain medications. SQH was held. The Roca catheter was removed on postoperative day 1 and the patient voided afterwards. The patient's diet was advanced as tolerated with return of bowel function. On postoperative day 1, the patient was tolerating a diet, ambulating, and had good pain control. The patient was discharged in stable condition to home with instructions to follow up as scheduled. Transitions of Care Critical Issues: SPECIALIST FOLLOW-UP: Urology for stent removal LABS AND PROCEDURES PENDING AT DISCHARGE: Stones for analysis Consulting Teams During Hospitalization: None Patient Condition @ Discharge: Stable Discharge Disposition: Home/Self Care Information Provided to Patient: DC instructions provided ALLERGIES No Known Allergies Discharge Medications: Current Discharge Medication List START taking these medications amoxicillin (POLYMOX, AMOXIL) 500 mg Take 500 mg by mouth every 8 hours. Qty: 15 capsule Refills: 0 keTORolac (TORADOL) 10 mg Take 10 mg by mouth every 6 hours as needed for pain. Qty: 10 tablet Refills: 0 tamsulosin (FLOMAX) 0.4 mg Take 0.4 mg by mouth once daily. 30 minutes after the same meal each day. Qty: 15 capsule Refills: 0 phenazopyridine (PYRIDIUM, GERIDIUM) 200 mg Take 200 mg by mouth three times daily as needed (bladder discomfort). Qty: 9 tablet Refills: 0 CONTINUE these medications which have NOT CHANGED amLODIPine (NORVASC) 5 mg Take 5 mg by mouth daily at bedtime. propranolol (INDERAL) 20 mg Take 20 mg by mouth three times daily. Qty: 90 tablet Refills: 0 metFORMIN (GLUCOPHAGE) 1,000 mg Take 1,000 mg by mouth twice daily with meals. Qty: 60 tablet Refills: 0 STOP taking these medications sulfamethoxazole-trimethopr im (BACTRIM DS,SEPTRA DS) 800-160 mg per tablet Comments: Reason for Stopping: Future Appointments: No future appointments. The patient's risk for 30-day readmission is determined using the following contributing factors: Pt variables contributing to increased readmission risk: 30 Active Medication Orders 9.1 First Resulted Calcium During Admission 9 Most Recent BUN Result 1 Insurance - Medicaid 1 Discharge Disposition - Home SIGNATURE: Taqueria Yancey MD PAGER: [phone] DATE: May 22, 2021 TIME: 8:54 AM Normal [facility] NURSING PROGon 05-22-2021 NURSING PROG HNO ID: [id number] Author: Gabriel Hernandes RN Service: ? Author Type: Registered Nurse Type: Nursing Progress Note Filed: 05/22/2021 11:07 AM Note Text: Nursing Progress Note Patient Name: Johanna Castro Patient Location: [facility] OR POOL/[facility] SURG OR POOL Daily Note:1106 page to urology. Patient called RX they dont have script for pyridium. This note was completed by: Gabriel [facility] NURSING PROG HNO ID: [id number] Author: Gabriel Hernandes RN Service: ? Author Type: Registered Nurse Type: Nursing Progress Note Filed: 05/22/2021 8:35 AM Note Text: Nursing Progress Note Patient Name: Johanna Castro Patient Location: [facility] OR POOL/[facility] SURG OR POOL Daily Note:0820 100cc fluid aspirated from roca balloon. Roca removed. Tip intact. [place] clear urine 700cc in bag This note was completed by: Gabriel [facility] NURSING PROG HNO ID: [id number] Author: Ayesha Hutson RN Service: ? Author Type: Registered Nurse Type: Nursing Progress Note Filed: 05/22/2021 5:11 AM Note Text: Nursing Progress Note Patient Name: Johanna Castro Patient Location: [facility] OR POOL/[facility] SUR[facility] OR POOL Daily Note:05/21/2021 2100 Received handoff report, assumed care of pt. Assessment complete as charted, see flowsheet. AANDOx3. Walking around and sitting in chair. Dressing to lower left back C/D/I. Output in roca pink. Safety precautions maintained. 0000 Prior assessment unchanged. Will continue to care for. 0400 Prior assessment unchanged. This note was completed by: Ayesha Hutson [facility] ANES POSTPROC EVALon 022 ANES POSTPROC EVAL HNO ID: [id number] Author: Milly Ingram MD Service: Anesthesiology Author Type: Anesthesiologist Type: Anesthesia Postprocedure Evaluation Filed: 05/21/2021 11:07 AM Note Text: POST ANESTHESIA EVALUATION NOTE : 1985 Procedure Summary Date: 05/21/21 Room / Location: ORA / OR Anesthesia Start: 729 Anesthesia Stop: 956 Procedures: PERCUTANEOUS NEPHROLITHOTOMY (Left Kidney) PERC PLACEMENT URETERAL STENT, NEW ACCESS,W/O SEPARATE NEPHROSTOMY CATH,INCLUDING DIAGNOSTIC NEPHROSTOGRAM AND/OR URETEROGRAM WHEN PERFORMED,IMAGING GUIDANCE AND ALL ASSOCIATED RAD CHUYITA (Left Kidney) PERC DILATION EXISTING NEPHROSTOMY TRACT W/POST PROCEDURE TUBE PLACEMENT W/IMAGE GUIDANCE (Left Kidney) PERCUTANEOUS NEPHROSCOPY (Left Kidney) LASER CYSTOURETHROSCOPY W/ URETEROSCOPY AND/OR PYELOSCOPY W/ LITHOTRIPSY HOLMIUM (Left Kidney) Diagnosis: Renal calculus, left (Renal calculus, left [N20.0]) Surgeons: Citlaly Francois MD Responsible Provider: Milly Ingram MD Anesthesia Type: general ASA Status: 3 Anesthesia Type: general Airway Type: ETT Last Vitals Vitals Value Taken Time BP 140/79 05/21/21 1100 Temp 36.8 ?C (98.2 ?F) 05/21/21 1049 Pulse 101 05/21/21 1105 Resp 16 05/21/21 1105 SpO2 96 % 05/21/21 1105 Vitals shown include unvalidated device data. Post Anesthesia Patient Status Patient Evaluation: bedside. Neurological Status: sleepy but arousable. Pulmonary Status: breathing comfortably on supplemental oxygen Airway Control: returned to baseline unsupported. Cardiovascular Status: stable. Pain Management: clinically adequate Postoperative Hydration: acceptable. Intraoperative Events: no significant anesthesia events Recommendation: continue current plan of care. Anesthesia Observations No Documentation SIGNATURE: Milly Ingram MD PATIENT NAME: Johanna Castro DATE: May 21, 2021 TIME: 11:07 AM CSN: [id number] [facility] ANES PRE-OPon 05-21-2021 ANES PRE-OP HNO ID: [id number] Author: Milly Ingram MD Service: Anesthesiology Author Type: Anesthesiologist Type: Anesthesia Preprocedure Evaluation Filed: 05/21/2021 6:58 AM Note Text: ANESTHESIOLOGY DAY OF SURGERY NOTE : 1985 Procedure Information Date/Time: 05/21/21729 Procedures: PERCUTANEOUS NEPHROLITHOTOMY (Left Kidney) PERC PLACEMENT URETERAL STENT, NEW ACCESS,W/O SEPARATE NEPHROSTOMY CATH,INCLUDING DIAGNOSTIC NEPHROSTOGRAM AND/OR URETEROGRAM WHEN PERFORMED,IMAGING GUIDANCE AND ALL ASSOCIATED RAD CHUYITA (Left Kidney) PERC DILATION EXISTING NEPHROSTOMY TRACT W/POST PROCEDURE TUBE PLACEMENT W/IMAGE GUIDANCE (Left Kidney) PERCUTANEOUS NEPHROSCOPY (Left Kidney) LASER CYSTOURETHROSCOPY W/ URETEROSCOPY AND/OR PYELOSCOPY W/ LITHOTRIPSY HOLMIUM (Left Kidney) - P120 Location: [facility] OR19A / [facility] OR Surgeons: Citlaly Francois MD Estimated body mass index is 45.61 kg/m? as calculated from the following: Height as of 05/08/21: 172.7 cm (5' 8 ). Weight as of 05/16/21: 136.1 kg (300 lb). Most recent hematocrit and potassium results: Hematocrit 33.8 05/21/2021 Potassium 4.8 05/08/2021 Relevant Problems CARDIO (+) Hypertension ENDO (+) Diabetes mellitus, type 2 (HCC) -RENAL (+) Renal calculus, left I - PHYSICAL EVALUATION AIRWAY Patient intubated: No. Mallampati: II. TM distance: >3 FB. Neck ROM: full ROM without neurological symptoms. Mouth opening: adequate. Short neck: yes. DENTAL Dental findings: teeth intact. II - ANESTHESIA PLAN ASA Score: 3 Anesthetic Plan: general Airway type: ETT The patient is not a current smoker. NPO Status: adequate Monitoring plan: standard ASA. Postoperative analgesic plan: parenteral or oral opioids. Anesthetic Risks, Benefits, Alternatives, Personnel Discussed. Consent obtained from: patient.Patient / Surrogate agrees to blood products: Yes Potential Anesthesia issues that may suggest increased risk of complications or contraindication to planned procedure: none. Vitals Value Taken Time BP 144/90 05/21/21555 Pulse 101 05/21/21555 Resp 18 05/21/21555 Temp 36.8 ?C (98.2 ?F) 05/21/21 05 SpO2 98 % 05/21/21555 Facility-Administered Medications as of 05/21/2021 Medication Dose Route Frequency - sodium chloride 0.9 % (flush) 2-10 mL (BD POSIFLUSH) 2-10 mL INTRAVENOUS q 12 H - ampicillin 2 g in NaCl 0.9% 100 mL Vial-Bag 2 g INTRAVENOUS ONCE - gentamicin 180 mg in D5W 100 mL 180 mg INTRAVENOUS ONCE - lactated ringers iv infusion 75 mL/hr INTRAVENOUS CONTINUOUS - [COMPLETED] acetaminophen 1,000 mg tab(s) (TYLENOL) 1,000 mg ORAL ONCE - [COMPLETED] promethazine 12.5 mg tab(s) (PHENERGAN) 12.5 mg ORAL NOW Outpatient Medications as of 05/21/2021 Medication Sig - propranolol (INDERAL) 20 mg tablet Take 1 tablet by mouth three times daily. - metFORMIN (GLUCOPHAGE) 1,000 mg tablet Take 1 tablet by mouth twice daily with meals. I have interviewed and examined the patient. I have reviewed the medical record and/or the pre-anesthesia evaluation, pertinent labs, and test results. This contains updated information obtained within 48 hours of Surgery/Procedure. SIGNATURE: Milly Ingram MD PATIENT NAME: Johanna Castro DATE: May 21, 2021 TIME: 6:57 AM CSN: [id number] Normal [facility] APTTon 05-21-2021 aPTT Coag (Bld) [Time] 28.8 s Normal 23.0-32.4 [facility] Comment on above: Result Comment: Unfr actionated Heparin Therapeutic Ranges: Standard Heparin Nomogram: 53 to 78 seconds (anti-Xa level of 0.3 to 0.7 U/ml) Low Dose/ACS Nomogram: 49 to 67 seconds (anti-Xa level of 0.2 to 0.5 U/ml) Stroke Treatment Nomogram: 49 to 67 seconds (anti-Xa level of 0.2 to 0.5 U/ml) Note: The APTT therapeutic range has been determined for the current lot of laboratory APTT reagent in use throughout the [facility]. Basic Metabolic Panlon 05-21 Anion gap [Moles/Vol] 14 mmol/L Normal 9-18 [facility] Calcium [Mass/Vol] 8.8 mg/dL Normal 8.5-10.2 [facility] Chloride [Moles/Vol] 99 mmol/L Normal 97-105 [facility] CO2 [Moles/Vol] 19 mmol/L Low 22-33 [facility] Creatinine [Mass/Vol] 0.80 mg/dL Normal 0.58-0.96 [facility] eGFR- Amer. >60 Normal [facility] eGFR-All Other Races >60 Normal [facility] Comment on above: Result Comment: eGFR (Estimated GFR) Units of measure: mL/min/1.73 meters squared eGFR is derived from the reexpressed MDRD Study equation using the following parameters: serum creatinine, age, gender and race. The creatinine assay has been calibrated to be traceable to IDMS. An eGFR <60 mL/min/1.73m2 for >3 months is consistent with chronic kidney disease. Refer to KDOQI guidelines for clinical interpretation. In patients with unstable renal function, e.g. those with acute kidney injury, the eGFR may not accurately reflect actual GFR. Note: On 06/15/2021, the eGFR calculation will be updated to the NKF-ASN Task Force recommended 2020 CKD-EPI creatinine equation which does not include a race variable. For more information or to access a 2020 CKD-EPI calculator, visit the National Kidney [employer] website at kidney.org/professionals/kdoqi/gfr_calculator. Glucose [Mass/Vol] 245 mg/dL High 74-99 [facility] Potassium [Moles/Vol] 4.0 mmol/L Normal 3.7-5.1 [facility] Sodium [Moles/Vol] 132 mmol/L Low 136-144 [facility] Urea nitrogen [Mass/Vol] 12 mg/dL Normal 7-21 [facility] CBCon 05-21-2021 Absolute nRBC <0.01 Normal <0.01 [facility] Erythrocyte distribution width (RBC) [Ratio] 17.2 % High 11.5-15.0 [facility] Hematocrit (Bld) [Volume fraction] 34.0 % Low 36.0-46.0 [facility] Hemoglobin (Bld) [Mass/Vol] 10.8 g/dL Low 11.5-15.5 [facility] MCH 27.6 pG Normal 26.0-34.0 [facility] MCHC (RBC) [Mass/Vol] 31.8 g/dL Normal 30.5-36.0 [facility] MCV (RBC) [Entitic vol] 87.0 fL Normal 80.0-100.0 [facility] Platelet mean volume (Bld) [Entitic vol] 10.9 fL Normal 9.0-12.7 [facility] Platelets (Bld) [#/Vol] 329 10*3/uL Normal 150-400 [facility] RBC (Bld) [#/Vol] 3.91 10*6/uL Normal 3.90-5.20 [facility] WBC (Bld) [#/Vol] 10.53 10*3/uL Normal 3.70-11.00 [facility] CBC and Differentialon 05-21 Abs Baso 0.04 k/uL Normal <0.11 [facility] Abs Stevens 0.62 k/uL Normal <0.87 [facility] Abs Neut 6.72 k/uL Normal 1.45-7.50 [facility] Basophils/100 WBC (Bld) 0.4 % Normal [facility] DTYPE Auto Diff Normal [facility] Eosinophils (Bld) [#/Vol] 0.12 10*3/uL Normal <0.46 [facility] Eosinophils/100 WBC (Bld) 1.3 % Normal [facility] Erythrocyte distribution width (RBC) [Ratio] 16.0 % High 11.5-15.0 [facility] Hematocrit (Bld) [Volume fraction] 33.8 % Low 36.0-46.0 [facility] Lymphocytes (Bld) [#/Vol] 1.76 10*3/uL Normal 1.00-4.00 [facility] Lymphocytes/100 WBC (Bld) 19.0 % Normal [facility] MCH 26.9 pG Normal 26.0-34.0 [facility] MCHC (RBC) [Mass/Vol] 32.0 g/dL Normal 30.5-36.0 [facility] MCV (RBC) [Entitic vol] 84.3 fL Normal 80.0-100.0 [facility] Monocytes/100 WBC (Bld) 6.7 % Normal [facility] Neutrophils/100 WBC (Bld) 72.6 % Normal [facility] NRBCs 0.0 /100 WBC Normal 0 [facility] Platelet mean volume (Bld) [Entitic vol] 10.5 fL Normal 9.0-12.7 [facility] Platelets (Bld) [#/Vol] 307 10*3/uL Normal 150-400 [facility] RBC (Bld) [#/Vol] 4.01 10*6/uL Normal 3.90-5.20 [facility] WBC (Bld) [#/Vol] 9.26 10*3/uL Normal 3.70-11.00 [facility] Calculi Analysison 2 Calculus Color OFF WHITE Normal [facility] Comment on above: Performed By: #### C SA #### [facility] [address] [phone] Calculus Composition 90% Calcium Phosphate 10% Minor Components Normal [facility] Comment on above: Performed By: #### C SA #### [facility] [address] [place] [address] Calculus Size and Wt Multiple pieces. 0.0867 GRAMS Normal [facility] Comment on above: Performed By: #### C SA #### [facility] [address] [address] Calculus Type LT RENAL Normal [facility] Comment on above: Performed By: #### C SA #### [facility] [address] [address] Note This test was brendao ped and its performance characteristics determined by [facility]'s [facility] (RT PLMI). Normal [facility] Comment on above: Result Comment: It h as not been cleared or approved by the FDA. [facility] is regulated under CLIA as qualified to perform high complexity testing. This test is used for clinical purposes. It should not be regarded as investigational or for research. Performed By: #### C SA #### [facility] [address] [address] Comp Metabolic Panelon 05-21 Albumin [Mass/Vol] 4.1 g/dL Normal 3.9-4.9 [facility] ALP [Catalytic activity/Vol] 83 U/L Normal 34-123 [facility] ALT [Catalytic activity/Vol] 15 U/L Normal 7-38 [facility] Anion gap [Moles/Vol] 16 mmol/L Normal 9-18 [facility] AST [Catalytic activity/Vol] 21 U/L Normal 13-35 [facility] Bilirubin [Mass/Vol] 0.5 mg/dL Normal 0.2-1.3 [facility] Calcium [Mass/Vol] 9.1 mg/dL Normal 8.5-10.2 [facility] CO2 [Moles/Vol] 21 mmol/L Low 22-33 [facility] Creatinine [Mass/Vol] 0.78 mg/dL Normal 0.58-0.96 [facility] Glucose [Mass/Vol] 181 mg/dL High 74-99 [facility] Potassium [Moles/Vol] 3.7 mmol/L Normal 3.7-5.1 [facility] Protein [Mass/Vol] 6.8 g/dL Normal 6.3-8.0 [facility] Sodium [Moles/Vol] 136 mmol/L Normal 136-144 [facility] Confirm Blood Typeon 022 ABO/RH(D) Positive Normal [facility] NURSING PROGon 05-21-2021 NURSING PROG HNO ID: [id number] Author: Franck Lyon RN Service: Nursing Author Type: Registered Nurse Type: Nursing Progress Note Filed: 05/21/2021 6:37 PM Note Text: Nursing Progress Note Patient Name: Johanna Castro Patient Location: [facility] SUR[facility] OR POOL/[facility] SURG OR POOL 1800 [place] claudioie aware of blood sugar increasing with sliding scale, and meds taking for it at home. See new orders. Also, aware of home med taken for increased heart rate and bp. See new orders. This note was completed by: Franck Lyon [facility] NURSING PROG HNO ID: [id number] Author: Genevieve West RN Service: ? Author Type: Registered Nurse Type: Nursing Progress Note Filed: 05/21/2021 1:15 PM Note Text: Nursing Progress Note Patient Name: Johanna Castro Patient Location: [facility] SUR[facility] OR POOL/[facility] SURG OR POOL Daily Note:Patient arrived from OR to PACU. Report done at BS. Assumed care of patient. Patient sedated arouses to verbal stimuli. Lungs clear on 4LNC. Left flank dressing unremarkable as charted. VSS. No signs of distress. Continue to monitor patient. 1022 Anesthesia notified of patient blood sugar 257. No orders received. 1314 moved to PACU bed 22. Report given to Franck WILSON. This note was completed by: Genevieve West [facility] OPERATIVE NOon 05-21-2021 OPERATIVE NO HNO ID: [id number] Author: Citlaly Francois MD Service: Urology Author Type: Physician Type: Operative Report Filed: 05/24/2021 5:03 PM Note Text: OPERATIVE/PROCEDURE REPORT LOG ID: [id number] Surgery/Procedure Date: 05/21/2021 Incision/Procedure Start Time: Incision Close/Procedure End Time: Surgeon(s)/Proceduralist(s) and Poultry Scalder(s): Surgeon(s) and Role: * Citlaly Francois MD - Primary * Baldemar Birch MD No Additional Staff Procedures: - Cystoscopy, Left ureteral catheter placement - Left percutaneous access with percutaneous nephrolithotomy - Left Flexible nephroscopy - Left Retrograde pyelograms - Left antegrade ureteral stent placement, 6F x 26cm CLINICAL PREAMBLE: 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 Stones were located in renal pelvis with a preoperative stone burden of 27mm. Signed informed consent was obtained prior to the procedure after a thorough discussion of the risks, benefits and alternatives. I discussed specific risks and complications of the procedure in detail including but not limited to: hemorrhage with the potential need for blood transfusion or angiogram, UTI, urosepsis, injury to adjacent structures including pleural violation requiring a chest tube, or colonic injury. I also discussed the post operative nephrotomy tube, and possibility of residual fragments with the need for secondary PCNL or ureteroscopy. TECHNICAL DESCRIPTION OF PROCEDURE: The patient was brought into the operating room and a surgical huddle was performed. General anesthesia was administered via ETT and appropriate perioperative IV antibiotics were given. DVT prophylaxis with SCD and MARSHALL stockings was provided. The patient was then positioned in the prone split leg position with all pressure points carefully padded and protected. The back and genitalia was thoroughly prepped and draped. A 17F flexible Olympic cystoscope was introduced per urethra and into the bladder. The left ureteral orifice was identified and a 0.035 Bard Solo guidewire was advanced into the renal pelvis under fluoroscopic guidance. The scope was then removed and a 5F open ended catheter was inserted over the wire into the renal pelvis. A 16F roca catheter was then placed to straight drainage with 5cc of sterile water in the balloon. The ureteral catheter was connected to a 50% contrast. Safety Associate images were obtained in 3 planes using the c-arm. A retrograde pyelogram was performed with both contrast and air, and an appropriate upper pole, posterior calyx was selected. The BK ultrasound with the curved transducer was used to assess the renal anatomy and identify the upper pole calyx. An 18F Chiba needle was used to gain access into this calyx under ultrasound guidance. However, the tract was sub-optimal and accordingly, we decided to gain an upper pole access via bullseye fluoroscopic approach. At this time it was decided to proceed with fluoroscopic guidance. An 18 gauge short cook needle was introduced toward the preselected calyx and subsequently, the 21F needle and 0.018 nitinol tip wire from the accustick kit was used to establish access into the renal collecting system. With the use of a 0.035 angled glidewire the wire and accustick catheter was navigated by the [facility] and advanced into the proximal ureter. An [place] superstiff wire was then advanced down into the bladder in exchange for the glidewire and a 0.038 Hybrid (Bard Solo) wire was then placed with a Natasha B introducer, and the Hybrid wire was secured to the drape as a safety. The skin incision was enlarged to 12mm to accommodate the access sheath. The Bard X-Force balloon was passed over the stiff wire and the tip was positioned under fluoroscopic guidance to the appropriate depth of the calyx. The balloon was inflated to 25 atmospheres and the access sheath was placed under fluoroscopy. The balloon was deflated and removed. The rigid nephroscope was inserted into the kidney with continuous irrigation at 150mmHg. Visibility was excellent, and the stone was seen as it impacted the infundibulum. The Shockpulse probe was used to fragment and evacuate the stone. Stone fragment(s) was removed with forceps graspers and sent for culture and stone analysis. The Shockpulse was then used to evacuate all remaining stones. Flexible nephroscopy was then performed which revealed stones within the mid pole of the kidney, which were removed with a combination of the Halo basket and Shockpulse. It was felt that all stone fragments were removed after all calyces were carefully evaluated. Hemostasis was excellent throughout the case. An antegrade nephrostomy was performed showing no filling defects or extravasation, and accordingly we decided to leave a ureteral stent. The 5F cathter was removed from the urethra in exchange f (more content not included)... Normal [facility] Protimeon 05-21-2021 PT INR 1.0 Normal 0.9-1.3 [facility] Comment on above: Result Comment: Magda min K Antagonist (VKA) Therapeutic Range: INR 2 to 3 (Target INR of 2.5) Note: For patients treated with VKA drugs, such as warfarin, the [employer] 2012 Guideline recommends a therapeutic INR range of 2 to 3 (target INR of 2.5). This recommendation includes high-risk patients with antiphospholipid syndrome with previous arterial or venous thromboembolism, current-generation mechanical or bioprosthetic aortic heart valve replacement. Note: Patients with mechanical aortic valve replacement and additional risk factors for thromboembolic events (atrial fibrillation, previous thromboembolism, LV dysfunction, hypercoagulable conditions) or an older generation mechanical AVR (i.e., ball in-Cage) or any mechanical MVR should have a INR therapeutic range of 2.5 to 3.5 (target INR of 3). Kalee GH, et al. Chest 2012, 141:7S-47S Csar RA, et al. JACC 2017, 70: 252-289 PT Sec 10.4 sec Normal 9.7-13.0 [facility] Tissue Cult / Stainon 2021 Tissue Cult / Stain Sp. Request/Comment: - Specimen received in sterile container. Smear Result - Rare Gram positive cocci --> ABNORMAL ALERT Few Polymorphonuclear leukocytes Culture Result - Few Escherichia coli --> ABNORMAL ALERT The discrepancy between culture and gram stain result may be due to nonviable organisms or the presence of anaerobes. (NOTE) Positive result called to and read back by: Sabi Francois M.D. [facility] 05/22/21 1707 SJayant Guo ORGANISM: Escherichia coli METHOD: Minimum inhibitory concentration (VIZION) Antibiotic Interp AYANA Status Ampicillin RESISTANT >16 F Gentamicin SUSCEPTIBLE <=2 F Trimeth sulfameth SUSCEPTIBLE <=1 F Cefazolin INTERMEDIATE 4 F Ciprofloxacin SUSCEPTIBLE <=0.25 F Cefepime SUSCEPTIBLE <=2 F Piperacillin/Tazobac SUSCEPTIBLE <=8 F Ampicillin Sulbact INTERMEDIATE 16 F Ceftriaxone SUSCEPTIBLE <=0.5 F Meropenem SUSCEPTIBLE <=0.5 F Ertapenem SUSCEPTIBLE <=0.25 F Critically abnormal [facility] Comment on above: Performed By: #### T ISCUL #### [facility] [address] [place], [place] [address] XR CHEST 1V FRONTAL PORTon 0 05-21-2021 XR CHEST 1V FRONTAL PORT * * *Final Report* * * DATE OF EXAM: May 21 2021 10:18AM HCR [id number] - XR CHEST 1V FRONTAL PORT / PROCEDURE REASON: Post-operative / post-procedure assessment, symptomatic * * * * Physician Interpretation * * * * RESULT: EXAMINATION: CHEST RADIOGRAPH (PORTABLE SINGLE VIEW AP) Exam Date/Time: 05/21/2021 10:18 AM CLINICAL HISTORY: Post-operative / post-procedure assessment, symptomatic MQ: XCPR_5 Comparison: 02/25/2020 RESULT: See impression IMPRESSION: Lines, tubes, and devices: None. Lungs and pleura: Lower lung volumes present on this study when compared to the prior study with basilar and right perihilar atelectasis present. No gross edema or pneumothorax. Cardiomediastinal silhouette: Stable cardiomediastinal silhouette. Transcribed Using Voice Recognition Transcribe Date/Time: May 21 2021 10:20A Dictated by: ADEEL YATES MD This examination was interpreted and the report reviewed and electronically signed by: ADEEL YATES MD on May 21 2021 10:21AM EST [id number] [facility] Urine Cultureon 05-04-2021 Bacteria identified Cx Nom (U) ORGANISM: Escherichia coli (O:ESCCOL) [place] Count 50,000 Aerobic AYANA Charge (NUC86) SUSCEPTIBILITY ORGANISM: O:ESCCOL ANTIBIOTIC INTERPRETATION AYANA Amikacin S <16 Ampicillin R >16 Ampicillin/Sulbactam I 1616/8 Aztreonam S <4 Cefazolin S 4 Cefepime S <2 Ceftazidime S <1 Ceftazidime/Avibactam S <8 Ceftriaxone S <1 Ciprofloxacin S <1 Ertapenem S <0.5 Gentamicin S <4 Levofloxacin S <2 Meropenem S <1 Nitrofurantoin S <32 Piperacillin/Tazobactam S <16 Tetracycline S <4 Tigecycline S <2 Tobramycin S <4 Trimethoprim/Sulfamethoxazo le S <2/38 S = SUSCEPTIBLE I = INTERMEDIATE R = RESISTANT BLANK = DATA NOT AVAILABLE, OR DRUG NOT ADVISABLE OR TESTED R* = RESISTANCE DUE TO EXTENDED SPECTRUM BETA-LACTAMASES ESBL = EXTENDED SPECTRUM BETA-LACTAMASE TFG = THYMIDINE-DEPENDENT STRAIN SANNA = BETA-LACTAMASE POSITIVE IB = INDUCIBLE BETA-LACTAMASE. APPEARS IN PLACE OF 'S' WITH SPECIES KNOWN TO POSSESS INDUCIBLE BETA-LACTAMASES. POTENTIALLY THEY MAY BECOME RESISTANT TO ALL B-LACTAM DRUGS. PERFORMED BY: [place] [address] PATHOLOGIST [employer] MATTHIAS COOPER M.D. [facility] Comment on above: Performed By: #### C UU #### [address] Ambulatory Clinical Summaryo n 09-11-2020 Ambulatory Clinical Summary {[id number]}CD:61 [id number] [facility] Patient Educationon 09-12-19 21 Patient Education Urology Kidney Stones Kidney stones are rock-like masses that form inside of the kidneys. Kidneys are organs that make pee (urine). A kidney stone may move into other parts of the urinary tract, including: ? The tubes that connect the kidneys to the bladder (ureters). ? The bladder. ? The tube that carries urine out of the body (urethra). Kidney stones can cause very bad pain and can block the flow of pee. The stone usually leaves your body (passes) through your pee. You may need to have a doctor take out the stone. What are the causes? Kidney stones may be caused by: ? A condition in which certain glands make too much parathyroid hormone (primary hyperparathyroidism). ? A buildup of a type of crystals in the bladder made of a chemical called uric acid. The body makes uric acid when you eat certain foods. ? Narrowing (stricture) of one or both of the ureters. ? A kidney blockage that you were born with. ? Past surgery on the kidney or the ureters, such as gastric bypass surgery. What increases the risk? You are more likely to develop this condition if: ? You have had a kidney stone in the past. ? You have a family history of kidney stones. ? You do not drink enough water. ? You eat a diet that is high in protein, salt (sodium), or sugar. ? You are overweight or very overweight (obese). What are the signs or symptoms? Symptoms of a kidney stone may include: ? Pain in the side of the belly, right below the ribs (flank pain). Pain usually spreads (radiates) to the groin. ? Needing to pee often or right away (urgently). ? Pain when going pee (urinating). ? Blood in your pee (hematuria). ? Feeling like you may vomit (nauseous). ? Vomiting. ? Fever and chills. How is this treated? Treatment depends on the size, location, and makeup of the kidney stones. The stones will often pass out of the body through peeing. You may need to: ? Drink more fluid to help pass the stone. In some cases, you may be given fluids through an IV tube put into one of your veins at the hospital. ? Take medicine for pain. ? Make changes in your diet to help keep kidney stones from coming back. Sometimes, medical procedures are needed to remove a kidney stone. This may involve: ? A procedure to break up kidney stones using a beam of light (laser) or shock waves. ? Surgery to remove the kidney stones. Follow these instructions at home: Medicines ? Take pwav-pjt-cnbgzxt and prescription medicines only as told by your doctor. ? Ask your doctor if the medicine prescribed to you requires you to avoid driving or using heavy machinery. Eating and drinking ? Drink enough fluid to keep your pee pale yellow. You may be told to drink at least 8?10 glasses of water each day. This will help you pass the stone. ? If told by your doctor, change your diet. This may include: ? Limiting how much salt you eat. ? Eating more fruits and vegetables. ? Limiting how much meat, poultry, fish, and eggs you eat. ? Follow instructions from your doctor about eating or drinking restrictions. General instructions ? Collect pee samples as told by your doctor. You may need to collect a pee sample: ? 24 hours after a stone comes out. ? 8?12 weeks after a stone comes out, and every 6?12 months after that. ? Strain your pee every time you pee (urinate), for as long as told. Use the strainer that your doctor recommends. ? Do not throw out the stone. Keep it so that it can be tested by your doctor. ? Keep all follow-up visits as told by your doctor. This is important. You may need follow-up tests. How is this prevented? To prevent another kidney stone: ? Drink enough fluid to keep your pee pale yellow. This is the best way to prevent kidney stones. ? Eat healthy foods. ? Avoid certain foods as told by your doctor. You may be told to eat less protein. ? Stay at a healthy weight. Where to find more information ? National Kidney Foundation (NKF): www.kidney.org ? [employer] (UCF): www.urologyhealth.org Contact a doctor if: ? You have pain that gets worse or does not get better with medicine. Get help right away if: ? You have a fever or chills. ? You get very bad pain. ? You get new pain in your belly (abdomen). ? You pass out (faint). ? You cannot pee. Summary ? Kidney stones are rock-like masses that form inside of the kidneys. ? Kidney stones can cause very bad pain and can block the flow of pee. ? The stones will often pass out of the body through peeing. ? Drink enough fluid to keep your pee pale yellow. This information is not intended to replace advice given to you by your health care provider. Make sure you discuss any questions you have with your health care provider. Document Released: 09/22/2008 Document Revised: 08/23/2019 Document Reviewed: 08/23/2019 Rapid Pathogen Screening Patient Education ? 2019 [employer]. [facility] Urology Office/Clinic Noteon 09-11-2020 Urology Office/Clinic Note Chief Complaint preop appt This patient is scheduled for PCNL of a 3 cm left renal calculus. She like to change the date for later in the year. She is not having any pain, infections or bleeding. [facility] Staff Johanna is a 34 y.o. female here for a pre-op visit for left PCNL.. Patient is scheduled for this procedure on 10/17/20.Patient has questions about possibly postponing procedure until fall. Patient denies any pain or discomfort with left kidney.. 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 Dysuria: _Denies Incomplete bladder emptying: _Denies Hematuria: _Denies visible blood in urine Frequency: _Denies Urgency: _Denies Nocturia: _Denies Stream: stream is good and normal Leaking: _Denies Post void dripping: _Denies Wearing pads/ Depends: _Denies Urge incontinence: _Denies Stress incontinence: _Denies Incontinence without Sensory Awareness: _Denies Abdominal pain: _Denies Flank pain: _Denies Sexual complaints: _ History of Present Illness Reviewed last encounter. There have been no associated fever, chills, flank pain or blood in the urine. Pt. denies any pain/burning with urination at this time. Review of Systems PHQ Score Initial Depression Screen Score: 0 ROS - Provider Constitutional: denies weight loss, denies hot flashes. Eyes: denies eye problems. Gastrointestinal: denies nausea, denies vomiting. Cardiovascular: denies chest pain or angina. Integumentary: no dryness Musculoskeletal: denies musculoskeletal symptoms. ENMT: denies otolaryngeal symptoms. Respiratory: no shortness of breath. Heme/Lymph: denies easy bleeding tendency, denies easy bruising tendency. Psychiatric: no confusion, no anxiety. Genitourinary: denies vaginal discharge, denies incontinence, denies dysuria, denies hematuria, denies urinary frequency, denies amenorrhea, denies menorrhagia, denies abnormal bleeding, denies pelvic pain, denies genital sores, and denies decreased libido. Physical Exam Vitals & Measurements HR: 87(Peripheral) BP: 152/110 HT: 172.0 cm HT: 172 cm WT: 141.3 kg WT: 141.3 kg BMI: 47.76 General Appearance: alert , no acute distress, well nourished, well developed female. Genitourinary: bladder nonpalpable, no flank pain. Assessment/Plan We will cancel the schedule PCNL and follow-up with the patient in December with a KUB x-ray. At that time she was to proceed we will make plans for PCNL of her left renal calculus. 1. Kidney stone (N20.0: Calculus of kidney) KUB done 07/17/20, large 3cm left renal stone along w/ a few other smaller calculi noted in both kidneys. Pt. has Lt. Percutaneous Nephrolithotomy scheduled on 10/17/20 but would like to postpone as pt. is not experiencing any pain at this time. Will cancel this procedure at this time and will have pt. f/u in 01/2021 where we'll consider rescheduling then. All questions/concerns were discussed. Pt. to call the office if sheencounters any issues prior. Pt. acknowledges understanding. Ordered: Body Mass Index (BMI) documented 3008F Most recent diastolic blood pressure >=90 mm Hg 3080F Most recent systolic blood pressure >= 140 mm Hg 3077F XR Abdomen 1 View I have reviewed the previous health record information and history for this pt. from Dr. Sims. Follow-up With When Contact Information Levi Angelo MD, Keyshawn Em, [facility] [address] [place] [id number]- Additional Instructions: 01/2021 w/ kub Patient Education Kidney Stones, [id number]-fa-Jtjz I, Susana Phillip , personally scribed for Dr. Sims on 09/11/2020 10:43:07. . Documentation recorded by the scribe, Susana Phillip, accurately reflects the services(s) I performed and decisions made by me. Authenticated by Dr. Sims on 09/11/2020 10:49:37. Problem List/Past Medical History Ongoing Anxiety Cervical ca Chronic diarrhea Diabetes Sarbjit's disease Hypertension Hypertensive urgency Hypothyroidism Kidney stone on left side PCOS (polycystic ovarian syndrome) Tachycardia with hypertension Type II diabetes mellitus Vitamin D deficiency Historical No qualifying data Procedure/Surgical History Appendectomy, LEEP. Medications metformin 500 mg ER Tab, Oral, Daily propranolol 20 mg Tab, Oral, BID Allergies No Known Medication Allergies Social History Tobacco Never (less than 100 in lifetime) Tobacco Use:. Never Smokeless Tobacco Use:., 09/11/2020 Family History Diabetes: Father. Hypertension: Mother and Father. Thyroid: Mother. Immunizations Vaccine Date Status Comments influenza virus vaccine, inactivated - Not Given Postpone due to refusal Diagnostic Results Review of KUB shows a 3 cm left renal calculus. Normal [facility] Comment on above: Result Comment: Elec tronically Signed By: Levi Angelo MD, Keyshawn Em\.br\Date and Time Signed: 09/11/20 10:49 EDT\.br\Electronically Co-Signed By: Heydinger MA, Susana F\.br\Date and Time Co-Signed: 09/11/20 10:43 EDT Lab Reportson 07-24-2020 Lab Reports [id number]:127 Normal [facility] COVID-19 Positive/Negativeon 07-23-2020 COVID-19 Positive/Negative Positive Negative [facility] Comment on above: Critical valueresult calledat 1643 on 07/23/20Reference: NegativeTesting for SARS-CoV-2 by RT-PCRThis test was developed and its performance characteristics determined by [employer] ([employer]) and validated at the [facility]. This test has not been FDA cleared or approved. This test has been authorized by FDA under an Emergency Use Authorization (EUA). This test has been validated in accordance with the FDA's Guidance Document (Policy for Diagnostics Testing in Laboratories Certified to Perform High Complexity Testing under CLIA prior to Emergency Use Authorization for Coronavirus Disease-2019 during the Public Health Emergency) issued on July 21, 2019. This test is only authorized for the duration of time the declaration that circumstances exist justifying the authorization of the emergency use of in vitro diagnostic tests for detection of SARS-CoV-2 virus and/or diagnosis of COVID-19 infection under section 564(b)(1) of the Act, 21 U.S.C. 360bbb-3(b)(1), unless the authorization is terminated or revoked sooner. Lab Reportson 07-23-2020 Lab Reports [id number]#[id number]:127 Normal [facility] RAD - CT Reporton 07-23-2020 RAD - CT Report [id number]#[id number]:127 Normal [facility] RAD - MISCon 07-23-2020 RAD - MISC [id number]#1.00CD:127 Normal [facility] RAD - MISC [id number]#1.00CD:127 Normal [facility] Activated partial thrombopla stin time (aPTT) in platelet poor plasma by coagulation aon 07-17-2020 aPTT Coag (PPP) [Time] 34.0 s 25.1-36.5 [facility] Automated basophil %on 07-17 Basophils/100 WBC (Bld) 0.4 % [facility] Automated basophil counton 0 07-17-2020 Basophils (Bld) [#/Vol] 0.0 10*3/uL 0.0-0.2 [facility] Automated blood lymphocyte c ount (number/volume)on 07-17-2020 Lymphocytes (Bld) [#/Vol] 2.3 10*3/uL 1.00-4.8 [facility] Automated blood lymphocyte c ount as percentage of total leukocyteson 07-17-2020 Lymphocytes/100 WBC (Bld) 28.4 % [facility] Automated blood monocyte cou nton 07-17-2020 Monocytes (Bld) [#/Vol] 0.3 10*3/uL 0.0-0.8 [facility] Automated blood platelet cou nt (count/volume)on 07-17-2020 Platelets (Bld) [#/Vol] 271 10*3/uL 150-450 [facility] Automated blood platelet raiza n volume measurementon 07-17-2020 Platelet mean volume (Bld) [Entitic vol] 9.4 fL 6.3-10.7 [facility] Automated eosinophil %on Eosinophils/100 WBC (Bld) 1.7 % [facility] Automated eosinophil counton 07-17-2020 Eosinophils (Bld) [#/Vol] 0.1 10*3/uL 0.0-0.45 [facility] Automated erythrocyte distri bution width ratioon 07-17-2020 Erythrocyte distribution width (RBC) [Ratio] 14.3 % 11.9-15.3 [facility] Automated erythrocyte mean c orpuscular hemoglobin (mass per erythrocyte)on 07-17-2020 MCH (RBC) [Entitic mass] 30.1 pg 24.7-34.3 [facility] Automated erythrocyte mean c orpuscular hemoglobin concentration measurement (mass/volon 07-17-2020 MCHC (RBC) [Mass/Vol] 35.0 g/dL 32.0-35.0 [facility] Automated erythrocyte mean c orpuscular volumeon 07-17-2020 MCV (RBC) [Entitic vol] 86.0 fL 80-100 [facility] Automated monocyte %on 07-17 Monocytes/100 WBC (Bld) 3.3 % [facility] Automated neutrophil %on Neutrophils/100 WBC (Bld) 66.2 % [facility] Blood erythrocytes automated count (number/volume)on 07-17-2020 RBC (Bld) [#/Vol] 4.26 10*6/uL 3.60-5.00 [facility] Blood hemoglobin measurement (mass/volume)on 07-17-2020 Hemoglobin (Bld) [Mass/Vol] 12.8 g/dL 11.8-15.4 [facility] Blood leukocytes automated c ount (number/volume)on 07-17-2020 WBC (Bld) [#/Vol] 8.1 10*3/uL 4.5-11.0 [facility] Blood neutrophil count by au tomated method (number/volume)on 07-17-2020 Neutrophils (Bld) [#/Vol] 5.4 10*3/uL 1.8-7.7 [facility] Estimated glomerular filtrat ion rate (GFR) non- Americanon 07-17-2020 GFR/1.73 sq M predicted among non-blacks MDRD (S/P/Bld) [Vol rate/Area] > 60 mL/Min [facility] Hematocrit [Volume Fraction] of Blood by Automated counton 07-17-2020 Hematocrit (Bld) [Volume fraction] 36.7 % 34.0-46.4 [facility] Hematologyon 07-17-2020 PT Coag (PPP) [Time] 10.6 s 9.0-12.9 [facility] Otheron 07-17-2020 GFR/1.73 sq M.predicted MDRD (S/P/Bld) [Vol rate/Area] > 60 mL/Min [facility] Comment on above: GFR estimated refere nce range: According to KDOQI guidelines, <60 ml/min/1.73m2 is sufficient to diagnose a patient with chronic kidney disease. Nucleated RBC/100 WBC (Bld) [Ratio] 0.4 % 0-0.5 [facility] Pharmacy Creatinine Clearance (Chem N/A [facility] Platelet poor plasma interna tional normalized ratio (INR) by coagulation assay (relaton 07-17-2020 INR Coag (PPP) [Relative time] 1.0 {INR} [facility] Comment on above: INR Therapeutic Rang e A) Pre- and Peroperative OAT started two weeks before surgery. NOT HIP SURGERY: 1.5 - 2.5 HIP SURGERY: 2 - 3B) Primary and secondary prevention of venous THROMBOSIS: 2 - 3C) Active venous thrombosis, pulmonary embolismand prevention of recurrent venous thrombosis: 2 - 3D) Prevention of arterial thromboembolismincluding patients with mechanical heart valves: 3 - 4.5 Serum or plasma calcium andrei urement (mass/volume)on 07-17-2020 Calcium [Mass/Vol] 9.4 mg/dL 8.2-10.2 [facility] Serum or plasma chloride raiza surement (moles/volume)on 07-17-2020 Chloride [Moles/Vol] 98 mmol/L 95-114 [facility] Serum or plasma creatinine m easurement with calculation of estimated glomerular filtron 07-17-2020 Creatinine [Mass/Vol] 0.72 mg/dL 0.44-1.03 [facility] Serum or plasma glucose andrei urement (mass/volume)on 07-17-2020 Glucose [Mass/Vol] 177 mg/dL 70-100 [facility] Comment on above: ADA recommended refe rence rangeRandom Glucose Reference Range is dependent on time and content of last meal. Glucose of more than 200 mg/dL in a nonstressed, ambulatory subject supports the diagnosis of Diabetes Mellitus. Serum or plasma potassium me asurement (moles/volume)on 07-17-2020 Potassium [Moles/Vol] 4.1 mmol/L 3.5-5.1 [facility] Serum or plasma sodium measu rement (moles/volume)on 07-17-2020 Sodium [Moles/Vol] 136 mmol/L 136-146 [facility] Serum or plasma total carbon dioxide measurement (moles/volume)on 07-17-2020 CO2 [Moles/Vol] 25.9 mmol/L 22.0-30.0 [facility] Serum or plasma urea nitroge n measurement (mass/volume)on 07-17-2020 Urea nitrogen [Mass/Vol] 8 mg/dL 9 [facility] Formson 06-20-2020 Forms [id number]:127 Normal [facility] Physician Referralon 021 Physician Referral [id number]#[id number]:127 Normal [facility] Ambulatory Clinical Summaryo n 06-19-2020 Ambulatory Clinical Summary {[id number]}CD:61 4368 Normal [facility] Patient Educationon 06-20-19 21 Patient Education Urology Kidney Stones Kidney stones are rock-like masses that form inside of the kidneys. Kidneys are organs that make pee (urine). A kidney stone may move into other parts of the urinary tract, including: ? The tubes that connect the kidneys to the bladder (ureters). ? The bladder. ? The tube that carries urine out of the body (urethra). Kidney stones can cause very bad pain and can block the flow of pee. The stone usually leaves your body (passes) through your pee. You may need to have a doctor take out the stone. What are the causes? Kidney stones may be caused by: ? A condition in which certain glands make too much parathyroid hormone (primary hyperparathyroidism). ? A buildup of a type of crystals in the bladder made of a chemical called uric acid. The body makes uric acid when you eat certain foods. ? Narrowing (stricture) of one or both of the ureters. ? A kidney blockage that you were born with. ? Past surgery on the kidney or the ureters, such as gastric bypass surgery. What increases the risk? You are more likely to develop this condition if: ? You have had a kidney stone in the past. ? You have a family history of kidney stones. ? You do not drink enough water. ? You eat a diet that is high in protein, salt (sodium), or sugar. ? You are overweight or very overweight (obese). What are the signs or symptoms? Symptoms of a kidney stone may include: ? Pain in the side of the belly, right below the ribs (flank pain). Pain usually spreads (radiates) to the groin. ? Needing to pee often or right away (urgently). ? Pain when going pee (urinating). ? Blood in your pee (hematuria). ? Feeling like you may vomit (nauseous). ? Vomiting. ? Fever and chills. How is this treated? Treatment depends on the size, location, and makeup of the kidney stones. The stones will often pass out of the body through peeing. You may need to: ? Drink more fluid to help pass the stone. In some cases, you may be given fluids through an IV tube put into one of your veins at the hospital. ? Take medicine for pain. ? Make changes in your diet to help keep kidney stones from coming back. Sometimes, medical procedures are needed to remove a kidney stone. This may involve: ? A procedure to break up kidney stones using a beam of light (laser) or shock waves. ? Surgery to remove the kidney stones. Follow these instructions at home: Medicines ? Take qnmi-drm-eqfxkfg and prescription medicines only as told by your doctor. ? Ask your doctor if the medicine prescribed to you requires you to avoid driving or using heavy machinery. Eating and drinking ? Drink enough fluid to keep your pee pale yellow. You may be told to drink at least 8?10 glasses of water each day. This will help you pass the stone. ? If told by your doctor, change your diet. This may include: ? Limiting how much salt you eat. ? Eating more fruits and vegetables. ? Limiting how much meat, poultry, fish, and eggs you eat. ? Follow instructions from your doctor about eating or drinking restrictions. General instructions ? Collect pee samples as told by your doctor. You may need to collect a pee sample: ? 24 hours after a stone comes out. ? 8?12 weeks after a stone comes out, and every 6?12 months after that. ? Strain your pee every time you pee (urinate), for as long as told. Use the strainer that your doctor recommends. ? Do not throw out the stone. Keep it so that it can be tested by your doctor. ? Keep all follow-up visits as told by your doctor. This is important. You may need follow-up tests. How is this prevented? To prevent another kidney stone: ? Drink enough fluid to keep your pee pale yellow. This is the best way to prevent kidney stones. ? Eat healthy foods. ? Avoid certain foods as told by your doctor. You may be told to eat less protein. ? Stay at a healthy weight. Where to find more information ? National Kidney Foundation (NKF): www.kidney.org ? [facility] (UCF): www.urologyhealth.org Contact a doctor if: ? You have pain that gets worse or does not get better with medicine. Get help right away if: ? You have a fever or chills. ? You get very bad pain. ? You get new pain in your belly (abdomen). ? You pass out (faint). ? You cannot pee. Summary ? Kidney stones are rock-like masses that form inside of the kidneys. ? Kidney stones can cause very bad pain and can block the flow of pee. ? The stones will often pass out of the body through peeing. ? Drink enough fluid to keep your pee pale yellow. This information is not intended to replace advice given to you by your health care provider. Make sure you discuss any questions you have with your health care provider. Document Released: 09/22/2008 Document Revised: 08/23/2019 Document Reviewed: 08/23/2019 [employer] Patient Education ? 2019 [place]. [facility] Urology Office/Clinic Noteon 06-19-2020 Urology Office/Clinic Note Chief Complaint New patient Kidney stone This patient is a 34-year-old female who is referred because of a large left renal calculus. She has x-rays here for review. She states that she has had some problems with pain in the left side but had no idea her last stone was as large as it is. She is here today to make plans for management of her large left renal calculus. HPI Staff New patient Johanna is a 34 y.o. female here for large staghorn calculus obstructing upper pole of kidney stone on the left side. This is her first kidney stone. She had an abd CT scan as a follow up for COVID. The stone was found on the CT. She denies any symptoms of flank pain, no blood in urine. In early 20s felt a pulsing discomfort after voiding. She would avoid voiding. This has not been an issue in 8 yrs. Dysuria: None Incomplete bladder emptying: None Hematuria: None Frequency: None Urgency: None Nocturia: None Stream:Stream is normal Leaking: None Post void dripping: None Wearing pads/ Depends: None Urge incontinence: None Stress incontinence: None Incontinence without Sensory Awareness: None Abdominal pain: None Flank pain: None Sexual complaints: _ History of Present Illness Reviewed urine, CT, referral, and new pt. paper works. There have been no associated fever, chills, flank pain or blood in the urine. Pt. denies any pain/burning with urination at this time. Review of Systems PHQ Score Initial Depression Screen Score: 0 ROS - Provider Constitutional: denies weight loss, denies hot flashes. Eyes: denies eye problems. Gastrointestinal: denies nausea, denies vomiting. Cardiovascular: denies chest pain or angina. Integumentary: no dryness Musculoskeletal: denies musculoskeletal symptoms. ENMT: denies otolaryngeal symptoms. Respiratory: no shortness of breath. Heme/Lymph: denies easy bleeding tendency, denies easy bruising tendency. Psychiatric: no confusion, no anxiety. Genitourinary: denies vaginal discharge, denies incontinence, denies dysuria, denies hematuria, denies urinary frequency, denies amenorrhea, denies menorrhagia, denies abnormal bleeding, denies pelvic pain, denies genital sores, and denies decreased libido. Physical Exam Vitals & Measurements BP: 159/110 HT: 172.72 cm HT: 172.7 cm WT: 142.5 kg WT: 142.5 kg BMI: 47.77 General Appearance: alert , no acute distress, well nourished, well developed female. Head: normocephalic . Eyes: normal orbit and globe. ENMT: normal examination of external ears. Chest: Lungs CTA, respirations non labored . Cardiovascular: regular rate and rhythm. Abdomen: soft, non distended, no tenderness, no mass or organomegaly, no hernia. Genitourinary: bladder nonpalpable, no flank tenderness. Lymph Nodes: unremarkable palpation of the cervical area. Skin: warm, dry, no bruising. Psychiatric: cooperative, affect appropriate for age, normal judgement, euthymic mood. Assessment/Plan This patient has a history of a large left renal calculus consistent with a partial staghorn. She has microscopic hematuria also consistent with stone. We discussed several treatment options but at present the most likely procedure that would be able to rid her of most of her stone with 1 anesthetic is PCNL. We discussed PCNL in detail. We discussed the risk, alternatives and potential complications of using this mode of therapy. We are making arrangements for PCNL to be done at [facility] with the aid of interventional radiology to gain access to the collecting system. We will plan to see the patient in the office before surgery to go over specifics of the procedure and expected postoperative course. 1. Staghorn calculus (N20.0: Calculus of kidney) Per CT 06/04/2020 shows large staghorn calculus within the Lt. renal pelvis obstructing the upper pole calyces. Will schedule Lt. Percutaneous Nephrolithotomy. The procedural risks, benefits, details, and treatment alternatives have been discussed with the patient. These include bleeding, infection, hemorrhaging around the kidney, need for blood transfusion, failure to remove all of the stone from the kidney, inability to get adequate access into the kidney, as well as the need for additional procedures, among others. Full informed consent has been obtained. Will order General anesthesia. Ordered: Urnls Dip Stick Auto w/o Microscopy POC [id number] Urology Procedure Order I have reviewed the previous health record information and history for this pt. from Dr. Sims. 2. Microscopic hematuria Urinalysis is consistent with microscopic hematuria. This is likely related to the large stone in her left kidney. Follow-up With When Contact Information Levi Angelo MD, Keyshawn Em [address] [place] [address]- Additional Instructions: scheduling Lt. PCNL Patient Education Kidney Stones, [id number] ISusana , personally scribed for Dr. Sims on 06/19/2020 16:20:34. Electronically signed b (more content not included)... Normal [facility] Comment on above: Result Comment: Elec tronically Signed By: Levi Angelo MD, Keyshawn Em\.br\Date and Time Signed: 06/19/20 17:28 EST\.br\Electronically Co-Signed By: Susana Phillip MA\.br\Date and Time Co-Signed: 06/19/20 16:22 EST Vital Signs Date Time Vital Sign Value Performing Clinician Facility 07-14-2022 15:31-0400 Body weight 112.04 kg Neida Gaines INTERNET MARKETING ASSISTANT.CORDWOOD CUTTER Work Phone: [facility] 04-04-2022 10:56-0500 Body height 172.7 cm Neris Jameson [facility] 04-04-2022 10:56-0500 Body weight 127.46 kg Neris Marsdivina [facility] 03-31-2022 14:00-0500 Body weight 128.82 kg Neida Gaines INTERNET MARKETING ASSISTANT.CORDWOOD CUTTER Work Phone: [facility] 03-06-2022 12:23-0500 Body height 172.7 [facility] 03-06-2022 12:23-0500 Body weight 136.99 kg Carmen Ashley [facility] 08-05-2021 08:55-0400 Body height 172.7 cm Neris Jeraddivina [facility] 08-05-2021 08:55-0400 Body weight 132.45 kg Neris Harley [facility] 05-04-2021 14:10-0500 Body temperature 97.6 [degF] Carmen Ginty Other [facility] Other 05-04-2021 14:10-0500 Body weight 136.35 kg Carmen Ginty Other [facility] Other 05-04-2021 14:10-0500 Diastolic blood pressure 96 mm[Hg] Carmen Ginty Other [facility] Other 05-04-2021 14:10-0500 SaO2% (BldA) [Mass fraction] 99 % Carmen Ginty Other [facility] Other 05-04-2021 14:10-0500 Systolic blood pressure 156 mm[Hg] Carmen Jacob Other [facility] Other Encounters Encounter Date Encounter Type Care Provider Facility Start: 05-25-2024 End: 05-25-2024 Bamboo flowsheet Roselyn Jenniferz NON DESTRUCTIVE TESTING SCIENTIST Work Phone: [facility] Start: 05-25-2024 End: 05-25-2024 Bamboo flowsheet Roselyn Aichholz NON DESTRUCTIVE TESTING SCIENTIST Work Phone: [facility] Start: 10-12-2023 End: 10-12-2023 ambulatory ROSELYN ASHLEY Not Available Start: 07-16-2023 End: 07-17-2023 ambulatory TIM DE LA ROSA Not Available Start: 07-06-2023 End: 07-06-2023 ambulatory CONCEPCION TADEO Not Available Start: 06-17-2023 End: 06-17-2023 ambulatory CONCEPCION Jerrell TADEO Not Available Start: 06-15-2023 End: 06-15-2023 ambulatory ROSELYN JENNIFERZ Not Available Start: 02-20-2023 ambulatory REAL BERGMAN Facilit y:[facility] Start: 09-03-2022 End: 09-03-2022 ambulatory ROSELYN MORFINZ Facility:[facility] Start: 08-28-2022 End: 08-29-[address] DOCTOR HUDDLESTON Facility: Start: 08-28-2022 Telephone encounter Real pinedo MD Work Phone: General Surgery Comment on above: Misc. Labs [facility] Start: 07-15-2022 ambulatory Neida Gaines APRN.[employer] CUTTER Work Phone: Endocrinology BMI Comment on above: Blood work Start: 07-14-2022 End: 07-14-2022 ambulatory NEIDA GAINES Facility:[facility] Start: 07-14-2022 End: 07-14-2022 Admission to same day surgery center Neida Gaines APRN.[employer] CUTTER Work Phone: Endocrinology BMI Comment on above: Encounter for surgic al aftercare following surgery of digestive system (Primary Dx); S/P laparoscopic sleeve gastrectomy; Postoperative malabsorption; Class 2 severe obesity with serious comorbidity and body mass index (BMI) of 37.0 to 37.9 in adult, unspecified obesity type (HCC) Start: 07-14-2022 End: 07-14-2022 Telemedicine consultation with patient Neida Gaines APRN.C[employer]OD CUTTER Work Phone: ABDIEL CABRERA [facility] Start: 05-22-2022 End: 05-23-2022 ambulatory [facility] ROSELYN RAMIREZ Facility: Start: 04-29-2022 End: 04-29-2022 ambulatory NEIDA GAINES Facility:[facility] Start: 04-21-2022 ambulatory Real ireladn MD Work Phone: Endocrinology BMI Comment on above: Vitamin question and throwing up Start: 04-04-2022 End: 04-04-2022 [facility] Start: 04-04-2022 End: 04-04-[address] Endocrinology BMI Comment on above: Patient Education (/ ); Reassessment (/) Start: 03-31-2022 End: 03-31-2022 ambulatory Neida Gaines APRN.[employer] C[employer]TER Work Phone: Endocrinology BMI Comment on above: S/P laparoscopic sle suhas gastrectomy (Primary Dx) Start: 03-31-2022 End: 03-31-2022 Telemedicine consultation with patient Neida Gaines APRN.[employer] CUTTER Work Phone: [facility]BD[facility] CABRERA [facility] Start: 03-25-2022 ambulatory Real ireland MD Work Phone: Endocrinology BMI Comment on above: Medication Start: 03-25-2022 Telephone encounter Fredi carlos RN Work Phone: Endocrinology BMI Comment on above: Post Op Start: 03-20-2022 Encounter for other preprocedural examination REAL BERGMAN [facility] Start: 03-20-2022 End: 03-21-2022 Evaluation and management of inpatient REAL BERGMAN Facility:[facility] Start: 03-19-2022 Admission to [facility] Ayleen Corey APRN.CANE FEEDER Work Phone: General Surgery Comment on above: Surgery Start: 03-19-2022 ambulatory Ayleen Corey INTERNET MARKETING ASSISTANT.CANE FEEDER Work Phone: [facility] Start: 03-18-2022 End: 03-19-2022 ambulatory Fredi Sanon RN Work Phone: Endocrinology BMI Comment on above: Ultrasound Results Pre-Op Teaching (LSG ) Start: 03-18-2022 E-mail encounter fro m caregiver Fredi Sanon RN Work Phone: ABDIEL CABRERA [facility] Start: 03-17-2022 Encounter for other preprocedural examination ROSELYN RAMIREZ [facility] Start: 03-17-2022 End: 03-17-2022 ambulatory REAL BERGMAN Facility:[facility] Start: 03-17-2022 End: 03-17-2022 ambulatory REAL BERGMAN Facility:[facility] Start: 03-11-2022 ambulatory Ayleen Corey INTERNET MARKETING ASSISTANT.CANE FEEDER Work Phone: General Surgery Comment on above: Ultrasound Start: 03-06-2022 End: 03-07-2022 ambulatory REAL BERGMAN Facility:[facility] Start: 03-06-2022 End: 03-06-[address] General Surgery Comment on above: Patient Education (/ ); Reassessment Start: 02-13-2022 Telephone encounter Fredi carlos RN Work Phone: Endocrinology BMI Comment on above: Schedule Surgery (LS G) Start: 01-22-2022 ambulatory Real ireland MD Work Phone: Endocrinology BMI Comment on above: Thursday03/02/2022 PS EUDO DATE (LSG); 03/20/2022 (LSG) Start: 01-22-2022 Preprocedural examination done Real Bergman MD Work Phone: Endocrinology BMI Start: 01-22-2022 Telephone encounter Fredi carlos RN Work Phone: Endocrinology BMI Comment on above: Surgery Preference Start: 01-01-2022 End: 01-02-2022 ambulatory C[employer]WOOD CUTTER ROSELYN RAMIREZ Facility:[facility] Start: 10-09-2021 End: 10-10-2021 ambulatory CAROL ANN CERVANTES . Facility:[facility] Start: 08-05-2021 End: 08-05-[address] General Surgery Comment on above: Patient Education; R eassessment Start: 05-22-2021 Telephone encounter Citlaly rosa MD Work Phone: [facility] Comment on above: Medication Problem Start: 05-20-2021 Telephone encounter Citlaly rosa MD Work Phone: [facility] Comment on above: Results (COVID) Start: 05-04-2021 End: 05-04-2021 ambulatory Carmen Jacob Other [facility] Other Start: 05-04-2021 Office outpatient ne w 20 minutes Carmen Jacob [facility] Start: 07-23-2020 End: 07-23-2020 Patient encounter procedure Roselyn Ramirez -Pre-Surgical Testing Start: 07-17-2020 End: 07-17-2020 Patient encounter procedure Roselyn Ramirez -Pre-Surgical Testing Procedures Date Procedure Procedure Detail Performing Clinician Start: 03-17-2022 Antibody screen ROSELYN RYAN Comment on above: Order Comment: Speci men Type: BLOOD SPECIMENOrdering Facility: [facility] Address: [address] [place] [address] Performed By: #### T [id number] ####CC MAIN BLOOD BANKCLIA [id number] [place] [address] [place] Start: 06-21-2021 Adult depression scr eening assessment Neris Jameson RD Start: 05-21-2021 Antibody screen Start: 07-17-2020 Diagnostic radiograp hy of abdomen Roselyn Ramirez Plan of Treatment Date Care Activity Detail Author Start: 06-16-2024 Urine screening for protein Diabetes: Urine Protein Screening [facility] Start: 05-25-2024 End: 05-25-2024 Patient encounter procedure 05/25/2024 9:00 AM EST Office Visit [facility] [address] [place] [address] Roselyn Ramirez, DIMAS [address] [place] [address] Tachycardia (Primary Dx); Morbid (severe) obesity due to excess calories (CMS/HCC); Essential (primary) hypertension (CMS/HCC); Body mass index (BMI) 38.0-38.9, adult; Vitamin D deficiency; S/P laparoscopic sleeve gastrectomy; History of diabetes mellitus, type II; Sarbjit's thyroiditis (CMS/HCC) [facility] Comment on above: Tachycardia (Primary Dx); Morbid (severe) obesity due to excess calories (CMS/HCC); Essential (primary) hypertension (CMS/HCC); Body mass index (BMI) 38.0-38.9, adult; Vitamin D deficiency; S/P laparoscopic sleeve gastrectomy; History of diabetes mellitus, type II; Sarbjit's thyroiditis (CMS/HCC) Start: 12-15-2023 Hemoglobin A1c measurement Diabetes: Hemoglobin A1C [facility] Start: 03-17-2023 BP CONTROLLED (<130/80) BP CONTROLLE D (<130/80) [facility] Start: 12-19-2022 Influenza vaccination [facility] Start: 09-14-2022 Hemoglobin A1c/Hemoglobin.total in Blood HBA1C [facility] Start: 07-03-2022 Hepatitis B surface antibody level LDL CHOLESTEROL [facility] Start: 06-21-2022 Adult depression screening assessment DEPRESSION SCREENING [facility] Start: 04-20-2022 DEPRESSION ASSESSMENT DEPRESSION ASS ESSMENT [facility] Start: 02-19-2022 End: 04-19-2022 TYPE AND SCREEN,30 DAY TYPE AND SCREEN,30 DAY Blood Bank Routine Morbid obesity (HCC) Preoperative examination Expected: 02/19/2022 (Approximate), Expires: 04/19/2022 [facility] Work Phone: Comment on above: Expected: 02/19/2022 (Approximate), Expires: 04/19/2022 Start: 02-13-2022 End: 03-20-2022 Us abdominal real time w/image limited US ABD RT UPPER QUADRANT Radiology Routine Morbid obesity (HCC) Preoperative examination Expected: 02/13/2022 (Approximate), Expires: 03/20/2022 [facility] Work Phone: Comment on above: Expected: 02/13/2022 (Approximate), Expires: 03/20/2022 Start: 01-03-2022 Hemoglobin A1c/Hemoglobin.total in Blood HBA1C [facility] Start: 12-19-2021 Influenza vaccination [facility] Start: 10-01-2021 Hepatitis C antibody , confirmatory test DILATED RETINAL EXAM [facility] Start: 04-20-2021 DEPRESSION ASSESSMENT DEPRESSION ASS ESSMENT [facility] Start: 2014 HPV TESTING HPV TESTING [facility] Start: 2014 Screening for malign ant neoplasm of cervix [facility] Start: 2005 PAP TESTING PAP TESTING [facility] Start: 2005 Screening for malign ant neoplasm of cervix Pap Smear [facility] Start: 09-26-2003 Urine microalbumin profile [facility] Start: 2002 ANNUAL PCP TEAM FRUIT ROOM HAND PETERSON DISEASE VISIT ANNUAL PCP TEAM CHRONIC DISEASE VISIT [facility] Start: 2002 BP CONTROLLED (<130/80) BP CONTROLLE D (<130/80) [facility] Start: 2002 HEPATITIS C SCREENING HEPATITIS C SC REENING [facility] Start: 2002 HIV SCREENING HIV SCREENING [facility] Start: 2000 ONE PNEUMOVAX PRIOR TO AGE 65 ONE PNEUMOVAX PRIOR TO AGE 64 [facility] Start: 1994 3 comp foot exam completed DIABETIC FOOT EXAM [facility] Start: 1994 Hepatitis B screening URINE ALBUMIN:CREATININE RATIO [facility] Start: 1990 PNEUMOCOCCAL (1 - PCV) PNEUMOCOCCAL (1 - PCV) [facility] Start: 1990 Pneumococcal vaccination Pneumococcal Vaccine (1 - PCV) [facility] Start: 1989 COVID-19 VACCINE (1) COVID-19 VACCIN E (1) [facility] Start: 03-27-1985 COVID-19 VACCINE (#1) COVID-19 VACCI NE (#1) [facility] Start: 1984 HEPATITIS B (1 of 3 - 3-dose series) HEPATITIS B (1 of 3 - 3-dose series) [facility] Start: 1984 Hepatitis B Vaccine (1 of 3 - 3-dose series) Hepatitis B Vaccine (1 of 3 - 3-dose series) [facility] REFER FOR ADMIT INTERVIEW REFER FOR ADMIT INTERVIEW Procedures Routine Morbid obesity (HCC) Preoperative examination Ordered: 02/13/2022 [facility] Work Phone: Comment on above: Ordered: 02/13/2022 [facility] Payers Date Payer Category Payer Private Health Insurance [employer] Member Subscriber Plan / Payer (Effective 2023-Present) Name: Bernardo Castroika Relation to Subscriber: Self Name: Johanna Castro Payer ID: Not on file Group ID: Not on file Type: Not on file Address: [address] [place] [id number] 2019 Medicaid UHC MEDICAID [employer]AN MEDICAID [id number] 2019-Present [phone] [address] [place] [address] Medicaid [id number] 2019 Medicaid [id number] 1984 Unknown [id number] [id number]. 593 1984 Unknown [id number] [id number]. 593 1984 Unknown [id number] [id number]. 593 1984 Unknown [id number] [id number]. 593 1984 Unknown [id number] [id number]. 593 1984 Unknown [id number] [id number]. 593 1984 Unknown [id number] [id number]. 1259 1984 Unknown [id number] 2.16.840.1.209950.3.579.2. 1259 1984 Unknown [id number] 2.16.840.1.873920.3.579.2. 1259 1984 Unknown [id number] 2.16.840.1.263271.3.579.2. 1259 1984 Unknown [id number] [id number]. 1259 1984 Unknown [id number] [id number]. 1259 1959 Private Health Insurance [id number] 1959 Unknown [id number] Self-pay Self Pay [id number] Social History Date Type Detail Facility Start: 07-17-2020 End: 06-15-2023 Tobacco smoking status NHIS Never smoked tobacco (finding) [facility] Start: 1985 Sex Assigned At Female F [facility] Start: 10-01-2020 End: 06-15-2023 Tobacco use and exposure Smokeless tobacco non-user [facility] Start: 07-06-2021 End: 10-12-2023 Alcohol intake Lifetime non-drinker (finding) [facility] Start: 10-01-2020 History SDOH Alcohol Frequency 1 [facility] Start: 07-02-2021 History SDOH Alcohol Comment Confucianism [facility] Start: 1985 Sex Assigned At Not on file [facility] Start: 07-15-2021 End: 03-20-2022 Exposure to SARS-CoV-2 (event) Not sure [facility] Start: 07-14-2022 End: 06-15-2023 Sex Assigned At [facility] Start: 07-14-2022 End: 06-15-2023 History of Social function [facility] Adult Depression Screening Assessment 0 [facility] Start: 06-15-2023 Alcohol Comment caffine: none [facility] Procedure Code Equipment Code Equipment Origin al Text Equipment Identifier Dates Stent Inlay Opti ma 6fr Taper [place] [employer] Polymer Phreecoat 26cm Ureteral - [id number] Start: 05-21-2021 Stent Inlay Opti ma 6fr Taper [place] [employer] Polymer Phreecoat 26cm Ureteral - [id number] Start: 05-21-2021 Goals Date Patient Goal Desired Activity /State Clinical Notes 05-04-2021 to 09-03-2022 Telephone Encounter - Yessy Wagner - 09/02/2022 10:10 AM EDTTelephone Encounter - Yessy Wagner - 08/29/2022 3:38 PM EDTTelephone Encounter - Yessy Wagner - 08/28/2022 3:35 PM EDT Note Date & Type Note Facility 09-03-2022 Note HNO ID: [id number] Author: Carmen Ramirez RD Service: ? Author Type: Registered Dietitian Type: Progress Notes Filed: 09/03/2022 2:07 PM Note Text: [facility] Nutrition Therapy: Virtual Consult - Re-assessment I have communicated my name and active licensure. The patient?s identity and physical location were verified at the time of this visit. Either the patient or their legal public relations representative has been informed of the risks and benefits of -- and alternatives to -- treatment through a remote evaluation and consents to proceed with the evaluation remotely. Nutrition Diagnosis: Altered Gastrointestinal Tract Function, related to, S/P bariatric surgery, as evidenced by surgical history RECOMMENDED MALNUTRITION DIAGNOSIS: NO MALNUTRITION IDENTIFIED NUTRITION CARE PLAN: Nutrition Intervention 09/03/2022: Modify type and amount of foods consumed for meals and snacks 1. Protein: Continue to strive for > 89 g protein per day. Eat protein first at all meals. Lean meats, low fat/part skim dairy products, peanut butter, eggs, beans. 2. Eat 4 small meals per day or 3 meals and 1-2 small snacks for additional protein and calories. Aim for 8912-8733 calories/day. 3. Practice these: Eat in this order protein first, vegetable and fruit second and whole grain carbohydrates last. * Separate eating and drinking by 30 minutes * Chew your food 20-30x per bite * Meals should last 30 minutes 4. Fluids: 64 oz per day, minimum. No carbonation, no caffeine, no calories, no alcohol. 5. Vitamin/minerals: [employer] Healthy multivitamin w/ iron and 8943-8373 mg calcium citrate daily (separate calcium from iron 2 hours, and separate 600 mg doses of calcium 4 hours apart) 6. Exercise: Strive for daily activity - combine strength training and cardio for best workouts. Goal is 30 minutes 5-6x per week. Phase V may begin at the discretion of your Registered Dietitian. This may take anywhere from 6-12 months or longer after surgery. If you are unsure when to add complex carbohydrates back into your meal plan, please consult with the doctor or dietitian. The goal remains to consume at least 89 grams of protein per day with the addition of vegetables, fruit and complex carbohydrates. Inadequate protein intake can lead to fatigue, loss of lean body mass and increase your risk of infection and other illnesses. Consume 3-4 ounces of protein 3 times per day (3-4 ounces for breakfast; 3-4 ounces for lunch; 3-4 ounces for dinner) As an estimate, 1 ounce of protein is approximately 7 grams. For example, if you consume 3 ounces of chicken, this would equal approximately 21 grams of protein. Always eat your protein foods first before eating the vegetable, fruit or complex carbohydrate. Do not begin eating your complex carbohydrate first. They contain little or no protein and protein is essential. Continue to consume sugar-free, noncarbonated, decaffeinated clear liquids in between high protein foods for a total of 64 ounces (8 cups) per day. Follow the ?30-Minute Rule? to fluid intake: Wait 30 minutes before and after your food to drink fluids. Important considerations about complex Carbohydrates: Complex carbohydrates are found in whole grains, fruits, legumes and vegetables. Up until Phase V, you may have been eating legumes and vegetables. Now you may consider whole grains, starchy vegetables and fruit. When incorporating complex carbohydrates, it is recommended that you begin with peeled fruit, either cooked or raw. No-added sugar and syrup canned fruit is acceptable. Remember to always check for food tolerance. Slowly increase your variety of choices only after you know that you can tolerate it. Fruit juice and sweetened beverages are not recommended. Avoid white flours, rice, pastas or breads that are ?doughy? or ?gummy?. These are hard to tolerate. When choosing whole grains, choose 100% whole wheat, 100% multigrain. These are packed with fiber, vitamins and minerals. Limit complex carbohydrates (1 serving, <50 g/day) and remember to always consume your protein first. You may continue to use protein shakes as a meal replacement if you find that you cannot consume enough protein. Do not skip meals; have 3 meals per day (breakfast, lunch and dinner). Nutrition Monitoring AND Evaluation: BMI<34 Need for Follow up: 9 months post op, scheduled for 12/24 @ 2:45pm PROGRESS: Interval History: Patient presents for follow up nutrition Virtual Consult s/p LSG. 5.5 months post op (03/20/22 Laila) Net weight loss 69 lbs (302 lbs initial) 23% TWL tracking as expected from surgery Pre-surgery weight: 304 pounds 48 pounds weight loss since last assessment (281 lbs) Patient tolerating phase IV without difficulty. Feels well overall. She does report constipation with very irregular bowel movements - relieved with occasional use of stool softener. Diet recall indicates consistent (more content not included)... [facility] 09-02-2022 Miscellaneous Notes Received Vit B1 Whole Blood result from [facility] dated 08/28/2022. Please review! Received updated labs from [facility] , 08/28/2022, please review. Thank You!i [facility] 08/28/2022 from [facility] . Please review, thank you! documented in this encounter [facility] 07-14-2022 Note HNO ID: [id number] Author: Neida Gaines APRN.[employer] Service: ? Author Type: Nurse Practitioner Type: Progress Notes Filed: 07/14/2022 3:56 PM Note Text: BMI SURGERY Post Op Clinic Note - virtual visit I have communicated my name and active licensure. The patient's identity and physical location were verified at the time of this visit. Either the patient or their legal public relations representative has been informed of the risks and benefits of -- and alternatives to -- treatment through a remote evaluation and consents to proceed with the evaluation remotely. July 14, 2022 INTERVAL HISTORY: Johanna Castro is here for 3 month post op visit. Since last visit she if feeling well overall, trying to get motivated for exercise. Index Surgery Date of Surgery: 03/20/2022 Surgeon: Real Bergman MD Surgical Procedure: LAPAROSCOPIC LONGITUDINAL GASTRECTOMY, GASTRIC RESTRICTIVE PROCEDURE Pre-surgical weight: 137.9 kg (304 lb) Override Index Surgery Information? No Other Bariatric Surgeries None Visit: 3 months Today's Visit: Wt 112 kg (247 lb) BMI 37.56 kg/m2 BMI 37.56 kg/(m2) Last Visit: Wt: 124.7 kg (275 lb) BMI: 41.81 kg/(m2) Total weight loss: 25.9 kg (57 lb) [place] weight: 74.6 kg (164 lb 7 oz) Excess weight: 63.3 kg (139 lb 9 oz) % of excess body weight lost: 25.9 kg (57 lb) (40.84% of excess weight loss) COMPLICATIONS SINCE LAST VISIT?: NONE DIET INTAKE: compliant with Phase 4 diet, tolerating vegetables Meeting protein goals DAILY SUPPLEMENTS: Calcium: Calcium Citrate w/ vitamin D (1200 - 1500mg) Multivitamin AND Minerals: 1 per day Iron Supplement: included in multi-vitamin Vitamin B12: included in multivitamin Vitamin D3: included in multi-vitamin Other: N/A EXERCISE: None currently Current Outpatient Medications Medication Sig acetaminophen (TYLENOL) 500 mg tablet Take 2 tablets by mouth every 6 hours as needed for pain. amLODIPine (NORVASC) 5 mg tablet Take 5 mg by mouth daily at bedtime. propranolol (INDERAL) 20 mg tablet Take 1 tablet by mouth three times daily. (Patient taking differently: Take 20 mg by mouth twice daily.) metFORMIN (GLUCOPHAGE) 1,000 mg tablet Take 1 tablet by mouth twice daily with meals. (Patient taking differently: Take 500 mg by mouth twice daily with meals. Taking 500 mg per day) No current facility-administered medications for this visit. REVIEW OF SYSTEMS: Denies nausea, vomiting, dumping syndrome, reactive hypoglycemia, gustatory rhinorrhea, Denies abdominal pain, constipation, diarrhea, melena, hematochezia, Denies paresthesias, gait abnormality, fatigue, weakness, lower extremity edema, and Denies taking NSAIDs PHYSICAL EXAM: Wt 112 kg (247 lb) LMP 04/18/2022 (Exact Date) BMI 37.56 kg/m? GENERAL: AANDO, pleasant, NAD RESPIRATORY: non labored NEURO: no obvious deficits Assessment / PLAN: 36 year old female with Class II obesity who presented today for 3 months. post op s/p LAPAROSCOPIC LONGITUDINAL GASTRECTOMY, GASTRIC RESTRICTIVE PROCEDURE, pt is responding well 1. Encounter for surgical aftercare following surgery of digestive system - ICD9: V58.75, ICD10: Z48.815 (primary diagnosis) / S/P laparoscopic sleeve gastrectomy - ICD9: V45.86, ICD10: Z98.84 - doing well overall - adherent with nutritional recommendations and vitamin intake - recommend starting regular exercise - continue phase IV, will make appointment with nutrition 3. Postoperative malabsorption - ICD9: 579.3, ICD10: K91.2 - taking all recommended vitamins - forgot to have labs drawn, will get them this week DISPOSITION: Return in 3 month for Post-op follow up/ individual office visit EDUCATION: Encouraged to continue with healthy lifestyle changes and incorporate cardiovascular and resistance training, Discussed weight loss expectations after bariatric and metabolic surgery, Advised PT to avoid NSAIDs, smoking tobacco given increased risk of marginal ulcers, or Discussed importance of protein intake as per the RDN note REFERRALS: N/A LABS: ordered last visit Neida Gaines APRN.CNP Medical Decision Making: Problems: Moderate: 2+ stable chronic illnesses Risk: Low: Low risk from testing/treatment Medical Decision Making Level: 3 - Low [facility] 07-14-2022 Instructions Neida Gaines APRN.CNP - 07/14/2022 3:40 PM EDT Call [phone] to schedule your nutrition appointment Great job so far!! Have the lab fax your results to me at [phone] YOU'RE DOING WONDERFULLY!!! See you in 3 months documented in this encounter [facility] 07-14-2022 History of Present illness Narrative BMI SURGERY Post Op Clinic Note - virtual visit I have communicated my name and active licensure. The patient's identity and physical location were verified at the time of this visit. Either the patient or their legal public relations representative has been informed of the risks and benefits of -- and alternatives to -- treatment through a remote evaluation and consents to proceed with the evaluation remotely. July 14, 2022 INTERVAL HISTORY: Johanna Castro is here for 3 month post op visit. Since last visit she if feeling well overall, trying to get motivated for exercise. Index Surgery Date of Surgery: 03/20/2022 Surgeon: Real Bergman MD Surgical Procedure: LAPAROSCOPIC LONGITUDINAL GASTRECTOMY, GASTRIC RESTRICTIVE PROCEDURE Pre-surgical weight: 137.9 kg (304 lb) Override Index Surgery Information? No Other Bariatric Surgeries None Visit: 3 months Today's Visit: Wt 112 kg (247 lb) BMI 37.56 kg/m2 BMI 37.56 kg/(m^2) Last Visit: Wt: 124.7 kg (275 lb) BMI: 41.81 kg/(m^2) Total weight loss: 25.9 kg (57 lb) [place] weight: 74.6 kg (164 lb 7 oz) Excess weight: 63.3 kg (139 lb 9 oz) % of excess body weight lost: 25.9 kg (57 lb) (40.84% of excess weight loss) COMPLICATIONS SINCE LAST VISIT?: NONE DIET INTAKE: compliant with Phase 4 diet, tolerating vegetables Meeting protein goals DAILY SUPPLEMENTS: Calcium: Calcium Citrate w/ vitamin D (1200 - 1500mg) Multivitamin & Minerals: 1 per day Iron Supplement: included in multi-vitamin Vitamin B12: included in multivitamin Vitamin D3: included in multi-vitamin Other: N/A EXERCISE: None currently Current Outpatient Medications Medication Sig acetaminophen (TYLENOL) 500 mg tablet Take 2 tablets by mouth every 6 hours as needed for pain. amLODIPine (NORVASC) 5 mg tablet Take 5 mg by mouth daily at bedtime. propranolol (INDERAL) 20 mg tablet Take 1 tablet by mouth three times daily. (Patient taking differently: Take 20 mg by mouth twice daily.) metFORMIN (GLUCOPHAGE) 1,000 mg tablet Take 1 tablet by mouth twice daily with meals. (Patient taking differently: Take 500 mg by mouth twice daily with meals. Taking 500 mg per day) No current facility-administered medications for this visit. REVIEW OF SYSTEMS: Denies nausea, vomiting, dumping syndrome, reactive hypoglycemia, gustatory rhinorrhea, Denies abdominal pain, constipation, diarrhea, melena, hematochezia, Denies paresthesias, gait abnormality, fatigue, weakness, lower extremity edema, and Denies taking NSAIDs PHYSICAL EXAM: Wt 112 kg (247 lb) LMP 04/18/2022 (Exact Date) BMI 37.56 kg/m GENERAL: A&O, pleasant, NAD RESPIRATORY: non labored NEURO: no obvious deficits Assessment / PLAN: 36 year old female with Class II obesity who presented today for 3 months. post op s/p LAPAROSCOPIC LONGITUDINAL GASTRECTOMY, GASTRIC RESTRICTIVE PROCEDURE, pt is responding well 1. Encounter for surgical aftercare following surgery of digestive system - ICD9: V58.75, ICD10: Z48.815 (primary diagnosis) / S/P laparoscopic sleeve gastrectomy - ICD9: V45.86, ICD10: Z98.84 - doing well overall - adherent with nutritional recommendations and vitamin intake - recommend starting regular exercise - continue phase IV, will make appointment with nutrition 3. Postoperative malabsorption - ICD9: 579.3, ICD10: K91.2 - taking all recommended vitamins - forgot to have labs drawn, will get them this week DISPOSITION: Return in 3 month for Post-op follow up/ individual office visit EDUCATION: Encouraged to continue with healthy lifestyle changes and incorporate cardiovascular and resistance training, Discussed weight loss expectations after bariatric and metabolic surgery, Advised PT to avoid NSAIDs, smoking tobacco given increased risk of marginal ulcers, or Discussed importance of protein intake as per the RDN note REFERRALS: N/A LABS: ordered last visit Neida Gaines APRN.CNP Medical Decision Making: Problems: Moderate: 2+ stable chronic illnesses Risk: Low: Low risk from testing/treatment Medical Decision Making Level: 3 - Low documented in this encounter [facility] 04-29-2022 Note HNO ID: [id number] Author: Neida Gaines APRN.CNP Service: ? Author Type: Nurse Practitioner Type: Progress Notes Filed: 04/29/2022 3:48 PM Note Text: BMI SURGERY Post Op Clinic Note - virtual visit Virtual Visit (Audio/Visual) I have discussed the nature of this visit with the patient which will occur via [facility] (Phone, Virtual Visit) and she agrees to proceed with this interaction . April 29, 2022 INTERVAL HISTORY: Johanna Castro is here for 1 month post op visit. Since last visit she has felt well, only having trouble tolerating chewable bariatric vitamin. She is switching to a capsule Index Surgery Date of Surgery: 03/20/2022 Surgeon: Real Bergman MD Surgical Procedure: LAPAROSCOPIC LONGITUDINAL GASTRECTOMY, GASTRIC RESTRICTIVE PROCEDURE Pre-surgical weight: 137.9 kg (304 lb) Override Index Surgery Information? No Other Bariatric Surgeries None Visit: 5 weeks Today's Visit: Wt 124.7 kg (275 lb) BMI 41.81 kg/m2 BMI 41.81 kg/(m2) Last Visit: Wt: 127.5 kg (281 lb) BMI: 42.73 kg/(m2) Total weight loss: 13.2 kg (29 lb) [place] weight: 74.6 kg (164 lb 7 oz) Excess weight: 63.3 kg (139 lb 9 oz) % of excess body weight lost: 13.2 kg (29 lb) (20.78% of excess weight loss) COMPLICATIONS SINCE LAST VISIT?: NONE DIET INTAKE: compliant with Phase 3 diet DAILY SUPPLEMENTS: Didn't like fusion chews Calcium: Calcium Citrate w/ vitamin D (1200 - 1500mg) Multivitamin AND Minerals: taking 2 flintstones twice per day Iron Supplement: included in multi-vitamin Vitamin B12: included in multivitamin Vitamin D3: included in multi-vitamin Other: N/A EXERCISE: Low impact exercise, bought resistance bands Current Outpatient Medications Medication Sig acetaminophen (TYLENOL) 500 mg tablet Take 2 tablets by mouth every 6 hours as needed for pain. pantoprazole DR (PROTONIX) 40 mg tablet Take 1 tablet by mouth once daily. ondansetron (ZOFRAN) 4 mg tablet Take 1 tablet by mouth every 8 hours as needed for nausea/vomiting. senna-docusate (SENNA-S) 8.6-50 mg per tablet Take 1 tablet by mouth once daily. Do not take if you have diarrhea amLODIPine (NORVASC) 5 mg tablet Take 5 mg by mouth daily at bedtime. propranolol (INDERAL) 20 mg tablet Take 1 tablet by mouth three times daily. metFORMIN (GLUCOPHAGE) 1,000 mg tablet Take 1 tablet by mouth twice daily with meals. No current facility-administered medications for this visit. REVIEW OF SYSTEMS: Denies nausea, vomiting, dumping syndrome, reactive hypoglycemia, gustatory rhinorrhea, Denies abdominal pain, constipation, diarrhea, melena, hematochezia, Denies paresthesias, gait abnormality, fatigue, weakness, lower extremity edema, and Denies taking NSAIDs PHYSICAL EXAM: video visit Wt 124.7 kg (275 lb) LMP 04/18/2022 (Exact Date) BMI 41.81 kg/m? GENERAL: AANDO, pleasant, NAD RESPIRATORY: non labored NEURO: no obvious deficits Assessment / PLAN: 36 year old female with Class III obesity who presented today for 1 months. post op s/p LAPAROSCOPIC LONGITUDINAL GASTRECTOMY, GASTRIC RESTRICTIVE PROCEDURE, pt is responding well - OK to change to capsule form of bariatric multivitamin - Needs RD appointment, didn't have one scheduled for 1 mo post op, she will call - OK to resume normal activity - continue Protonix until 3 months post op DISPOSITION: Return 2 month to Post-op follow up/ individual office visit EDUCATION: Encouraged to continue with healthy lifestyle changes and incorporate cardiovascular and resistance training, Discussed weight loss expectations after bariatric and metabolic surgery, Advised PT to avoid NSAIDs, smoking tobacco given increased risk of marginal ulcers, or Discussed importance of protein intake as per the RDN note REFERRALS: N/A LABS: Today: See [facility] Orders Neida Gaines APRN.[employer] [facility] 04-04-2022 Note HNO ID: [id number] Author: Neris Jameson RD Service: ? Author Type: Registered Dietitian Type: Progress Notes Filed: 04/04/2022 10:59 AM Note Text: This visit was performed virtually due to the COVID-19 epidemic as an effort to protect patients and minimize exposure. Consent from patient received to conduct visit virtually. This Team Access Model visit is a virtual GROUP encounter. It required patient-provider interaction for the medical decision making as documented below. Patient reports weight (as measured by home scale) of 281 pounds. AMBULATORY PATIENT EDUCATION NOTE-Shared Nutrition Group TOPIC: LIFE STYLE CHANGES: Post-op weight loss surgery: Diet and Exercise READINESS TO LEARN COGNITIVE ABILITY: Alert and oriented MOTIVATION TO LEARN: Eager Interested FAMILY SUPPORT: Unable to assess - Family not present INSTRUCTION PROVIDED TO: Patient PATIENT LEARNS BEST BY: Multiple Methods FACTORS AFFECTING LEARNING: None PHYSICAL LIMITATIONS AFFECTING LEARNING: None LEARNING RESPONSE DIAGNOSIS: Overweight Obesity, related to; decreased energy needs, as evidenced by BMI above normative standard for age and gender Malnutrition Screening Significant unintentional weight loss? No Eating less than 75% of usual intake for more than 2 weeks? No Nutritional status: METHOD OF INSTRUCTION: Individual instruction Group class instruction PATIENT / FAMILY RESPONSE: Nutrition outcome statement: Expect attention to diet to assist with weight management and minimum 500 calories/2 liters of fluids per day. Patient participated in a 2 week post-op shared nutrition group. Post-op weight loss surgery (LSG) (Dr. Bergman) . Weight loss: 21 lbs since initial assessment (302 lbs); 7% loss total body weight. Pre surgery weight: 304 lbs. Weight loss tracking higher than expected from surgery. Tolerating phase 3 diet without difficulty. Protein needs estimated at 89 grams protein per day (1.2 g/kg IBW kg). Current intake meeting ~ 75% protein needs. Fluid consumption adequate and appropriate and includes water, gatorade zero, protein water Patient is (Fusion 4/day) taking recommended vitamin/minerals. Exercise includes walking/cleaning as able. Labs not available to evaluate. Reviewed nutrition principles of: 1. Continue vitamins Fusion 4/day 2. Protein goal: 89 grams protein/day 3. Fluid goal: 64 ounces per day (no carbonation, caffeine, calories, alcohol) - separate foods and fluids by 20 minutes, small sips, no straw 4. Exercise goal: begin low intensity exercise until cleared by surgeon. 5. Practice mindful eating habits-take small portions, eat slowly, and chew thoroughly You have lost 7% total weight loss (average 6-9% at 1 month) Blog: [email or web address] [facility] has 2 virtual support group meetings: This is the Oco link with meeting number that will be used for all of the THURSDAY virtual support groups this year, on the Thursday of each month 5:30-6:30PM Join from the meeting link [email or web address] Join by meeting number Meeting number (access code): [phone] Meeting password: [email or web address] The schedule with dates, times, topics, and facilitators can be found here: [email or web address] This is the Oco link with meeting number that will be used for the Open Discussion ( Food for Thought ) support group on the Thursday of each month 5:30-6:30PM Join from the meeting link [email or web address] Join by meeting number Meeting number (access code): [phone] Meeting password: [email or web address] Hope to see you there! Nutrition Monitoring AND Evaluation: Advance diet to phase 3 by next visit Criteria: patient recall Need for Follow up: 1 month post op Appointment Start Time: 9:30 AM Appointment End Time: 10:24 AM Time Spent on Consult: 54 minutes - Group Neris Jameson MS,RD,CSOWM,LD [facility] 04-04-2022 History of Present illness Narrative This visit was performed virtually due to the COVID-19 epidemic as an effort to protect patients and minimize exposure. Consent from patient received to conduct visit virtually. This Team Access Model visit is a virtual GROUP encounter. It required patient-provider interaction for the medical decision making as documented below. Patient reports weight (as measured by home scale) of 281 pounds. AMBULATORY PATIENT EDUCATION NOTE-Shared Nutrition Group TOPIC: LIFE STYLE CHANGES: Post-op weight loss surgery: Diet and Exercise READINESS TO LEARN COGNITIVE ABILITY: Alert and oriented MOTIVATION TO LEARN: Eager Interested FAMILY SUPPORT: Unable to assess - Family not present INSTRUCTION PROVIDED TO: Patient PATIENT LEARNS BEST BY: Multiple Methods FACTORS AFFECTING LEARNING: None PHYSICAL LIMITATIONS AFFECTING LEARNING: None LEARNING RESPONSE DIAGNOSIS: Overweight Obesity, related to; decreased energy needs, as evidenced by BMI above normative standard for age and gender Malnutrition Screening Significant unintentional weight loss? No Eating less than 75% of usual intake for more than 2 weeks? No Nutritional status: METHOD OF INSTRUCTION: Individual instruction Group class instruction PATIENT / FAMILY RESPONSE: Nutrition outcome statement: Expect attention to diet to assist with weight management and minimum 500 calories/2 liters of fluids per day. Patient participated in a 2 week post-op shared nutrition group. Post-op weight loss surgery (LSG) (Dr. Bergman) . Weight loss: 21 lbs since initial assessment (302 lbs); 7% loss total body weight. Pre surgery weight: 304 lbs. Weight loss tracking higher than expected from surgery. Tolerating phase 3 diet without difficulty. Protein needs estimated at 89 grams protein per day (1.2 g/kg IBW kg). Current intake meeting ~ 75% protein needs. Fluid consumption adequate and appropriate and includes water, gatorade zero, protein water Patient is (Fusion 4/day) taking recommended vitamin/minerals. Exercise includes walking/cleaning as able. Labs not available to evaluate. Reviewed nutrition principles of: 1. Continue vitamins Fusion 4/day 2. Protein goal: 89 grams protein/day 3. Fluid goal: 64 ounces per day (no carbonation, caffeine, calories, alcohol) - separate foods and fluids by 20 minutes, small sips, no straw 4. Exercise goal: begin low intensity exercise until cleared by surgeon. 5. Practice mindful eating habits-take small portions, eat slowly, and chew thoroughly You have lost 7% total weight loss (average 6-9% at 1 month) Blog: [email or web address] [facility] has 2 virtual support group meetings: This is the Oco link with meeting number that will be used for all of the THURSDAY virtual support groups this year, on the Thursday of each month 5:30-6:30PM Join from the meeting link [email or web address] Join by meeting number Meeting number (access code): [phone] Meeting password: [email or web address] The schedule with dates, times, topics, and facilitators can be found here: [email or web address] This is the Oco link with meeting number that will be used for the Open Discussion ( Food for Thought ) support group on the Thursday of each month 5:30-6:30PM Join from the meeting link [email or web address] Join by meeting number Meeting number (access code): [phone] Meeting password: [email or web address] Hope to see you there! Nutrition Monitoring & Evaluation: Advance diet to phase 3 by next visit Criteria: patient recall Need for Follow up: 1 month post op Appointment Start Time: 9:30 AM Appointment End Time: 10:24 AM Time Spent on Consult: 54 minutes - Group Neris Jameson MS,RD,CSOWM,LD documented in this encounter [facility] 03-31-2022 Note HNO ID: [id number] Author: Neida Gaines APRN.[employer] Service: ? Author Type: Nurse Practitioner Type: Progress Notes Filed: 03/31/2022 2:22 PM Note Text: Assessment BMI Surgical PostOp Clinic Note- Virtual visit Phone Visit I have discussed the nature of this visit with the patient which will occur via [facility] (Phone, Virtual Visit) and she agrees to proceed with this interaction . Time spent during this visit: 22 min Visit changed to telephone due to poor connection, video would not connect March 31, 2022 INTERVAL HISTORY: Johanna Castro is here for 7-10 day post op visit. She is feeling well over all Pathology: FINAL DIAGNOSIS Portion of stomach, excision: - Segment of gastric body/fundus with no diagnostic abnormality. Index Surgery Date of Surgery: 03/20/2022 Surgeon: Real Bergman MD Surgical Procedure: LAPAROSCOPIC LONGITUDINAL GASTRECTOMY, GASTRIC RESTRICTIVE PROCEDURE Pre-surgical weight: 137.9 kg (304 lb) Override Index Surgery Information? No Other Bariatric Surgeries None Visit: 11 days Today's Visit: Wt 128.8 kg (284 lb) BMI 43.18 kg/m2 BMI 43.18 kg/(m2) Last Visit: Wt: 137.9 kg (304 lb) BMI: 46.22 kg/(m2) Total weight loss: 9.072 kg (20 lb) [place] weight: 74.6 kg (164 lb 7 oz) Excess weight: 63.3 kg (139 lb 9 oz) % of excess body weight lost: 9.072 kg (20 lb) (14.33% of excess weight loss) COMPLICATIONS SINCE LAST VISIT?: NONE Diet: phase 2 diet Sugar: Avoiding Dumping syndrome/symptoms: No Wound issues: No Abdominal pain: No Nausea or vomiting: No Reflux: No Gallbladder symptoms: No Hydration status: Good Meeting fluid recommendations from RD? Yes Do you feel dry/dark urine/progressive fatigue :No Have you had a bowel movement: Yes Symptoms of vitamin deficiency: No Taking PPI Yes If prescribed homegoing lovenox - are you taking your lovenox? N/a Activity: Normal activities, no lifting PT - NO Vitamins: Fusion chewables - 2 twice a day Current Outpatient Medications Medication Sig acetaminophen (TYLENOL) 500 mg tablet Take 2 tablets by mouth every 6 hours as needed for pain. pantoprazole DR (PROTONIX) 40 mg tablet Take 1 tablet by mouth once daily. amLODIPine (NORVASC) 5 mg tablet Take 5 mg by mouth daily at bedtime. propranolol (INDERAL) 20 mg tablet Take 1 tablet by mouth three times daily. metFORMIN (GLUCOPHAGE) 1,000 mg tablet Take 1 tablet by mouth twice daily with meals. ondansetron (ZOFRAN) 4 mg tablet Take 1 tablet by mouth every 8 hours as needed for nausea/vomiting. senna-docusate (SENNA-S) 8.6-50 mg per tablet Take 1 tablet by mouth once daily. Do not take if you have diarrhea No current facility-administered medications for this visit. Patient Active Problem List Obesity, Class III, BMI >= 40 Renal calculus, left Morbid obesity (HCC) Mild protein-calorie malnutrition (HCC) HTN (hypertension) Type 2 diabetes mellitus (HCC) Sarbjit's thyroiditis COVID-19 POTS (postural orthostatic tachycardia syndrome) Tachycardia Resolved Hospital Problems No resolved problems to display. REVIEW OF SYSTEMS: Denies nausea, vomiting, dumping syndrome, reactive hypoglycemia, gustatory rhinorrhea, Denies abdominal pain, constipation, diarrhea, melena, hematochezia, Denies paresthesias, gait abnormality, fatigue, weakness, lower extremity edema, and Denies taking NSAIDs PHYSICAL EXAM: Wt 128.8 kg (284 lb) LMP 03/16/2022 (Exact Date) BMI 43.18 kg/m? N/A telephone visit Impression: 36 year old female with Class III obesity who presented today for 11 day post op s/p LAPAROSCOPIC LONGITUDINAL GASTRECTOMY, GASTRIC RESTRICTIVE PROCEDURE - doing well, staying hydrated, following dietary recommendations - ok to advance to phase 3 at 2 weeks post op and begin vitamins - no heavy lifting/pushing/pulling >15 lbs until 3-4 weeks post op Plan: Next visit 1 month post op visit. Neida Gaines APRN.CNP [facility] 03-31-2022 Instructions Neida Gaines APRN.CNP - 03/31/2022 2:21 PM EST Walking is encouraged and going up stairs is perfectly fine. In general, we recommend no lifting more than 10-15 lbs (weight of a milk jug) for the first 3-4 weeks after surgery. Listen to your body. If an activity hurts, you are doing too much, too early. Avoid that activity for a few days before trying it again. If you listen to your body and let discomfort be your guide, you can safely advance your activity as tolerated. OK to advance to phase 3 diet this week, and start vitamins after 2 weeks post op documented in this encounter [facility] 03-31-2022 History of Present illness Narrative Assessment BMI Surgical PostOp Clinic Note- Virtual visit Phone Visit I have discussed the nature of this visit with the patient which will occur via [facility] (Phone, Virtual Visit) and she agrees to proceed with this interaction . Time spent during this visit: 22 min Visit changed to telephone due to poor connection, video would not connect March 31, 2022 INTERVAL HISTORY: Johanna Castro is here for 7-10 day post op visit. She is feeling well over all Pathology: FINAL DIAGNOSIS Portion of stomach, excision: - Segment of gastric body/fundus with no diagnostic abnormality. Index Surgery Date of Surgery: 03/20/2022 Surgeon: Real Bergman MD Surgical Procedure: LAPAROSCOPIC LONGITUDINAL GASTRECTOMY, GASTRIC RESTRICTIVE PROCEDURE Pre-surgical weight: 137.9 kg (304 lb) Override Index Surgery Information? No Other Bariatric Surgeries None Visit: 11 days Today's Visit: Wt 128.8 kg (284 lb) BMI 43.18 kg/m2 BMI 43.18 kg/(m^2) Last Visit: Wt: 137.9 kg (304 lb) BMI: 46.22 kg/(m^2) Total weight loss: 9.072 kg (20 lb) [place] weight: 74.6 kg (164 lb 7 oz) Excess weight: 63.3 kg (139 lb 9 oz) % of excess body weight lost: 9.072 kg (20 lb) (14.33% of excess weight loss) COMPLICATIONS SINCE LAST VISIT?: NONE Diet: phase 2 diet Sugar: Avoiding Dumping syndrome/symptoms: No Wound issues: No Abdominal pain: No Nausea or vomiting: No Reflux: No Gallbladder symptoms: No Hydration status: Good Meeting fluid recommendations from RD? Yes Do you feel dry/dark urine/progressive fatigue :No Have you had a bowel movement: Yes Symptoms of vitamin deficiency: No Taking PPI Yes If prescribed homegoing lovenox - are you taking your lovenox? N/a Activity: Normal activities, no lifting PT - NO Vitamins: Fusion chewables - 2 twice a day Current Outpatient Medications Medication Sig acetaminophen (TYLENOL) 500 mg tablet Take 2 tablets by mouth every 6 hours as needed for pain. pantoprazole DR (PROTONIX) 40 mg tablet Take 1 tablet by mouth once daily. amLODIPine (NORVASC) 5 mg tablet Take 5 mg by mouth daily at bedtime. propranolol (INDERAL) 20 mg tablet Take 1 tablet by mouth three times daily. metFORMIN (GLUCOPHAGE) 1,000 mg tablet Take 1 tablet by mouth twice daily with meals. ondansetron (ZOFRAN) 4 mg tablet Take 1 tablet by mouth every 8 hours as needed for nausea/vomiting. senna-docusate (SENNA-S) 8.6-50 mg per tablet Take 1 tablet by mouth once daily. Do not take if you have diarrhea No current facility-administered medications for this visit. Patient Active Problem List Obesity, Class III, BMI >= 40 Renal calculus, left Morbid obesity (HCC) Mild protein-calorie malnutrition (HCC) HTN (hypertension) Type 2 diabetes mellitus (HCC) Sarbjit's thyroiditis COVID-19 POTS (postural orthostatic tachycardia syndrome) Tachycardia Resolved Hospital Problems No resolved problems to display. REVIEW OF SYSTEMS: Denies nausea, vomiting, dumping syndrome, reactive hypoglycemia, gustatory rhinorrhea, Denies abdominal pain, constipation, diarrhea, melena, hematochezia, Denies paresthesias, gait abnormality, fatigue, weakness, lower extremity edema, and Denies taking NSAIDs PHYSICAL EXAM: Wt 128.8 kg (284 lb) LMP 03/16/2022 (Exact Date) BMI 43.18 kg/m N/A telephone visit Impression: 36 year old female with Class III obesity who presented today for 11 day post op s/p LAPAROSCOPIC LONGITUDINAL GASTRECTOMY, GASTRIC RESTRICTIVE PROCEDURE - doing well, staying hydrated, following dietary recommendations - ok to advance to phase 3 at 2 weeks post op and begin vitamins - no heavy lifting/pushing/pulling >15 lbs until 3-4 weeks post op Plan: Next visit 1 month post op visit. Neida Gaines APRN.CNP documented in this encounter [facility] 03-25-2022 Miscellaneous Notes BMI SPECIALTY CARE COORDINATION POST-OP TELEPHONE CALL BMI Post Op Telephone Call Pt was called on the third business day after discharge. DO YOU HAVE A COPY OF YOUR DISCHARGE INSTRUCTIONS YES Is there anything in your discharge instructions that you do not understand? NO Pain: zero. On a scale of 0-10, 0 being not satisfied and 10 being very satisfied, how satisfied were you with your pain management strategy after surgery? 10 Patient instructed not to take any narcotic pain medications (such as Roxicodone) within three hours before bedtime as it may cause breathing difficulty. If you are having pain at bedtime you may take Tylenol (liquid form or two extra strength tablets). Phase 2 full liquid diet:: tolerating diet. and pt estimates 60 grams of protein and 64 oz of fluid daily. Incisions: surgical glue intact and afebrile GI: + BM : WNL Medications: Taking as instructioned at discharge PPI and ursodiol CPAP USE: N/A Remind patient of post op appt. Reminded patient of how to reach [facility] or their surgeons office. Patient reminded to seek medical attention if they develop chest pain, a sudden onset of shortness of breath or persistent pain in the calf of their legs - BEST TO ALWAYS present to [facility] hospital where you had your surgery Patient verbalized understanding of all advice and instructions given. COVID-19 Symptoms: none . Fredi Sanon RN documented in this encounter [facility] 03-21-2022 Note HNO ID: [id number] Author: Chely Jules MD Service: General Surgery Author Type: Resident Type: Progress Notes Filed: 03/21/2022 8:23 AM Note Text: GENERAL SURGERY PROGRESS NOTE Johanna Castro [id number] ADMISSION DATE: 03/20/2022 Patient Active Hospital Problem List: Morbid obesity (HCC) (05/08/2021) Obesity, Class III, BMI >= 40 (03/17/2022) POD: 1 Day Post-Op Procedure(s) and Anesthesia Type: * LAPAROSCOPIC LONGITUDINAL GASTRECTOMY, GASTRIC RESTRICTIVE PROCEDURE - General Assessment and Plan: Johanna Castro is a 36 year old female with history of HTN, DM who was admitted on 03/20/2022. Now POD 1 from above procedure with Dr. Real Bergman MD. Hospital course has been uncomplicated at this point. Neuro: Pain control: oxy, tylenol Cardiac: Vitals q4. Home meds: continue home propanolol Respiratory: Incentive spirometry. Minimize use of supplemental O2. GI: . Diet: terell I, plan to advance to Terell II. Antiemetic available. FEN: IV fluids: LR at 125 cc/hr. Electrolytes repleted PRN. Renal: Urine output adequate. Creatinine normal. ID: .afebrile over last 24 hours. Heme: Hemoglobin 12. No clinical evidence of bleeding. Endo: Glucose ACHS, SSI. MSK: encourage ambulation Lines/Drains: PIV Prophylaxis: IPCs, LVX Dispo: RNF, possible dc today Plan of care to be discussed with staff Chely Jules MD General Surgery Resident 03/21/2022 8:22 AM SUBJECTIVE: No acute events overnight. Pain well controlled. No nausea or vomiting. Tolerating diet. OBJECTIVE: BP 124/66 Pulse 111 Temp 37.2 ?C (99 ?F) (Oral) Resp 18 LMP 03/15/2022 (Exact Date) SpO2 94% There is no height or weight on file to calculate BMI. GENERAL: Alert and oriented, no acute distress, cooperative. LUNGS: Non labored breathing on RA ABDOMEN: soft, appropriately tender, non distended. INCISIONS: clean, dry and intact EXTREMITIES: warm, well perfused Labs: CBC, Coags, BMP, Mg, Phos Recent Labs 03/21/22 0647 WBC 10.05 HB 12.0 HCT 34.4* PLT 251 NA 138 K 3.5* CHLOR 105 CO2 20* BUN 7 CREAT 0.75 GLUC 113* CA 8.7 MG 1.7 P 3.2 Liver Function, Amylase, AND Lipase Imaging: No orders to display I/O past 24h: Intake/Output Summary (Last 24 hours) at 03/21/2022 0822 Last data filed at 03/21/2022 0500 Gross per 24 hour Intake 1060 ml Output 900 ml Net 160 ml LDA: Lines, Drains, and Airways Line Duration Peripheral 03/21/22 0013 Right Forearm 22 Gauge <1 day SURGERY/PROCEDURE: Procedure(s) and Anesthesia Type: * LAPAROSCOPIC LONGITUDINAL GASTRECTOMY, GASTRIC RESTRICTIVE PROCEDURE - [facility] 03-21-2022 Note HNO ID: [id number] Author: Awilda Zepeda MD Service: General Surgery Author Type: Resident Type: Plan of Care Filed: 03/21/2022 5:00 AM Note Text: [employer] NOTE Paged about heart rate 110-115 bpm Patient is doing well, no pain, uses incentive well, comfortable, reported being thirsty She is known to have sinus tachycardia and takes propranolol 40 mg BID Abd examination benign BP: 133/69 Temp: 37.1 ?C (98.8 ?F) Temp src: Oral Pulse: 111 Resp: 16 Oxygen Therapy: Supplemental oxygen O2 Therapy: Room Air SpO2: 92 % Plan: - 500 cc IV fluids - monitor overnight - consider resuming propranolol Discussed with senior oncall residents Awilda Zeepda MD General Surgery PGY-1 Green Team Pager: [phone] On-Call pager: [phone] [facility] 03-20-2022 Note HNO ID: [id number] Author: Bina Sanderson MD Service: General Surgery Author Type: Resident Type: Plan of Care Filed: 03/20/2022 5:08 PM Note Text: Surgery Post-Op Check Name: Johanna Castro POD 0 s/p LAPAROSCOPIC LONGITUDINAL GASTRECTOMY, GASTRIC RESTRICTIVE PROCEDURE SUBJECTIVE: -Patient doing well -Pain well-controlled -Denies fevers, chills, chest pain, shortness of breath -Has nausea and vomiting OBJECTIVE: BP 135/87 Pulse 98 Temp 36.1 ?C (97 ?F) (Temporal) Resp 18 LMP 03/15/2022 (Exact Date) SpO2 98% Intake/Output Summary (Last 24 hours) at 03/20/2022 1706 Last data filed at 03/20/2022 1530 Gross per 24 hour Intake 1000 ml Output -- Net 1000 ml General: Patient not in acute distress, is resting comfortably on exam, and is pleasant and cooperative. Is alert and oriented x3. Abdomen: soft, appropriately tender, non distended. Dressing clean, dry, intact. Chest: Non-labored, symmetrical respirations. Clear to auscultation bilaterally. CVS: S1+S2 with no added cardiac sounds. ASSESSMENT/PLAN: Pain appropriately managed on current regimen. -Continue routine post-op care -Antiemetic as needed Bina Sanderson MD PGY-1 For team paging 6AM-6PM during weekdays: [phone] for [facility] Team For team paging after 6PM or on weekend / holidays: [phone] for General Surgery [facility] 03-20-2022 Note HNO ID: [id number] Author: LUIS Baker Service: Anesthesiology Author Type: Service Counter Cashier Type: Anesthesia Procedure Notes Filed: 03/20/2022 2:14 PM Note Text: ANESTHESIOLOGY PROCEDURE NOTE Airway General Information Procedure Start Time/Medication Administration: 03/20/2022 2:03 PM Patient location during procedure: OR Staffing Anesthesiologist: Nicolle Rankin MD CAA: LUIS Baker Performed by: EAN Indications and Patient Condition Indications for airway management: anesthesia Preoxygenated: yes anesthesia circuit Method: sleep Difficult Mask: No Airway Accessory: oral airway Final Airway Details Final airway type: endotracheal airway Final Endotracheal Airway: ETT Cuffed: yes Successful intubation technique: direct laryngoscopy Endotracheal tube insertion site: oral Blade: Marshal Blade size: #4 ETT size (mm): 7.5 Measured from: lips Measurement (cm): 22 Placement verified by: capnometry Cormack-Lehane Classification: grade I - full view of glottis Number of attempts at approach: 1 Airway not difficult SIGNATURE: LUIS Baker PATIENT NAME: Johanna Castro DATE: March 20, 2022 TIME: 2:14 PM CSN: [id number] [facility] 03-18-2022 Note HNO ID: [id number] Author: Fredi Sanon RN Service: ? Author Type: Registered Nurse Type: Progress Notes Filed: 03/18/2022 2:52 PM Note Text: BMI SPECIALTY CARE COORDINATION SURGERY PRE-OP EDUCATION NOTE AMBULATORY PATIENT EDUCATION NOTE TOPIC: SURVIVAL SKILLS: Laparoscopic gastric sleeve READINESS TO LEARN COGNITIVE ABILITY: Alert and oriented MOTIVATION TO LEARN: Eager FAMILY SUPPORT: Unable to assess - Family not present INSTRUCTION PROVIDED TO: Patient PATIENT LEARNS BEST BY: Multiple Methods FACTORS AFFECTING LEARNING: None PHYSICAL LIMITATIONS AFFECTING LEARNING: None LEARNING RESPONSE DIAGNOSIS: Morbid Obesity METHOD OF INSTRUCTION: Teach Back infection prevention Individual instruction Written instruction - handouts Verbal instruction PATIENT / FAMILY RESPONSE: Verbalizes understanding of: INFECTION MANAGEMENT-Signs and symptoms of an infection and importance of contacting the physician PAIN MANAGEMENT-Effective strategies to manage pain in addition to pain medication POST-OPERATIVE INSTRUCTIONS-Correct actions to take to reduce postoperative complications PRE-OPERATIVE INSTRUCTIONS-Correct action to take to follow pre-operative instructions Information received as demonstrated by interest and questions FOLLOW-UP PLAN: Complete - No need for follow-up Patient instructed to call with any further issues Contact information given. SUPPLEMENTAL MATERIAL: Your Surgical Guide REFERRAL (RECOMMENDATION): None Surgery Pre-Op Education Note in Nurse Visit Education video modules viewed by the patient: encouraged pt to watch Postop prescriptions provided to the patient: Yes Postop Surgeon Visit scheduled: Yes On-Call AND Clinic Phone Number given to the Patient: Yes Pre surgery checklist reviewed: Yes Patient Instructions for the Liquid Diet: Day Before Surgery - Liquid Diet Instruction Review 1. Last Protein shake should be before 6 pm. 2. It is important that you stay hydrated - 64 ounces of fluid per day. 3. Drink a 28-32 ounce bottle of a regular (not sugar free) sport drink (Gatorade, Powerade, etc.) the night prior to surgery. If the sport drinks aren?t tolerable, may substitute with no sugar added - no pulp juice - apple, cranberry, lemonade, white grape or orange. Day of Surgery Clear Liquid Diet Drink 12-20 ounces of a regular sport drink (or juice as above) stop liquids 2 hours before scheduled arrival time. Other Instructions Reviewed: Skin Preparation: Skin cleanse with antibacterial soap, Isabel, wound care, vitamin AND nutrients, activity restrictions post op, discharge instructions AND surgical guide, incentive spirometry;diet progression-micky phase I AND II AND 2wk liquid diet prior to surgery, activity level AND pt responsibility during hospitalization. Sleep Apnea: Patient has sleep apnea? No. Patient agrees to bring C-pap and wear it upon arrival from recovery room and when napping or sleeping. n/a Do not take pain medication three hours before bedtime as it may cause breathing difficulty. If you are having pain at bedtime you may take two Extra Strength Tylenol. Fredi Sanon RN [facility] 03-18-2022 History of Present illness Narrative BMI SPECIALTY CARE COORDINATION SURGERY PRE-OP EDUCATION NOTE AMBULATORY PATIENT EDUCATION NOTE TOPIC: SURVIVAL SKILLS: Laparoscopic gastric sleeve READINESS TO LEARN COGNITIVE ABILITY: Alert and oriented MOTIVATION TO LEARN: Eager FAMILY SUPPORT: Unable to assess - Family not present INSTRUCTION PROVIDED TO: Patient PATIENT LEARNS BEST BY: Multiple Methods FACTORS AFFECTING LEARNING: None PHYSICAL LIMITATIONS AFFECTING LEARNING: None LEARNING RESPONSE DIAGNOSIS: Morbid Obesity METHOD OF INSTRUCTION: Teach Back infection prevention Individual instruction Written instruction - handouts Verbal instruction PATIENT / FAMILY RESPONSE: Verbalizes understanding of: INFECTION MANAGEMENT-Signs and symptoms of an infection and importance of contacting the physician PAIN MANAGEMENT-Effective strategies to manage pain in addition to pain medication POST-OPERATIVE INSTRUCTIONS-Correct actions to take to reduce postoperative complications PRE-OPERATIVE INSTRUCTIONS-Correct action to take to follow pre-operative instructions Information received as demonstrated by interest and questions FOLLOW-UP PLAN: Complete - No need for follow-up Patient instructed to call with any further issues Contact information given. SUPPLEMENTAL MATERIAL: Your Surgical Guide REFERRAL (RECOMMENDATION): None Surgery Pre-Op Education Note in Nurse Visit Education video modules viewed by the patient: encouraged pt to watch Postop prescriptions provided to the patient: Yes Postop Surgeon Visit scheduled: Yes On-Call & Clinic Phone Number given to the Patient: Yes Pre surgery checklist reviewed: Yes Patient Instructions for the Liquid Diet: Day Before Surgery - Liquid Diet Instruction Review 1. Last Protein shake should be before 6 pm. 2. It is important that you stay hydrated - 64 ounces of fluid per day. 3. Drink a 28-32 ounce bottle of a regular (not sugar free) sport drink (Gatorade, Powerade, etc.) the night prior to surgery. If the sport drinks aren t tolerable, may substitute with no sugar added - no pulp juice - apple, cranberry, lemonade, white grape or orange. Day of Surgery Clear Liquid Diet Drink 12-20 ounces of a regular sport drink (or juice as above) stop liquids 2 hours before scheduled arrival time. Other Instructions Reviewed: Skin Preparation: Skin cleanse with antibacterial soap, Isabel, wound care, vitamin & nutrients, activity restrictions post op, discharge instructions & surgical guide, incentive spirometry;diet progression-micky phase I & II & 2wk liquid diet prior to surgery, activity level & pt responsibility during hospitalization. Sleep Apnea: Patient has sleep apnea? No. Patient agrees to bring C-pap and wear it upon arrival from recovery room and when napping or sleeping. n/a Do not take pain medication three hours before bedtime as it may cause breathing difficulty. If you are having pain at bedtime you may take two Extra Strength Tylenol. Fredi Sanon RN documented in this encounter [facility] 03-18-2022 Note Education (BMISHAWNAJ) -------- JOHANNA CASTRO ([id number]) 1985 F [employer] Date Time Provider Department 03/18/22 FREDI SANON Reason for Visit: Pre-Op Teaching [134] Cmt: KUNAL During your visit today, we recorded the following information about you: Allergies As of Date: 03/18/2022 (No Known Allergies) Date Reviewed: 03/17/2022 Reviewed by: Tere Barrett PA-C - Fully Assessed Prescriptions as of 03/18/2022 - oxyCODONE IR (ROXICODONE) 5 mg immediate release tablet Take 1 tablet by mouth every 8 hours as needed for pain. - pantoprazole DR (PROTONIX) 40 mg tablet Take 1 tablet by mouth once daily. - ondansetron (ZOFRAN) 4 mg tablet Take 1 tablet by mouth every 8 hours as needed for nausea/vomiting. - senna-docusate (SENNA-S) 8.6-50 mg per tablet Take 1 tablet by mouth once daily. Do not take if you have diarrhea - amLODIPine (NORVASC) 5 mg tablet Take 5 mg by mouth daily at bedtime. - propranolol (INDERAL) 20 mg tablet Take 1 tablet by mouth three times daily. - metFORMIN (GLUCOPHAGE) 1,000 mg tablet Take 1 tablet by mouth twice daily with meals. Encounter Status:Closed by FREDI SANON on 03/18/22 [facility] 03-17-2022 Note HNO ID: [id number] Author: Real Bergman MD Service: ? Author Type: Physician Type: Progress Notes Filed: 03/17/2022 8:47 PM Note Text: SURGERY PREOPERATIVE VISIT NOTE Name: Johanna Castro Medical Record: [id number] Encounter No.: [id number] Johanna Castro is a 36 year old female seen in surgery clinic today for their final preoperative assessment. INTERVAL NOTE: well prepared for surgery. PLANNED PROCEDURE: 03/20/2022 LAPAROSCOPIC LONGITUDINAL GASTRECTOMY, GASTRIC RESTRICTIVE PROCEDURE VTE RISK CALCULATION: 0.16 % PAST MEDICAL HISTORY: PAST MEDICAL HISTORY Diagnosis Date Sarbjit's thyroiditis HTN (hypertension) Type 2 diabetes mellitus (HCC) PAST SURGICAL HISTORY: PAST SURGICAL HISTORY Procedure Laterality Date APPENDECTOMY 2008 SECTION HX x 3 PAST SURGICAL HISTORY OF hysteroscopy DANDC, LEEP PAST SURGICAL HISTORY OF kidney stone placed stent PCNL surgery to break it up SOCIAL HISTORY: Social History Tobacco Use Smoking status: Never Smokeless tobacco: Never Vaping Use Vaping Use: Never used Substance Use Topics Alcohol use: Never Comment: Confucianism Drug use: Never ALLERGIES: ALLERGIES No Known Allergies MEDICATIONS: Prior to Admission Medications: amLODIPine (NORVASC) 5 mg tablet Take 5 mg by mouth daily at bedtime. propranolol (INDERAL) 20 mg tablet Take 1 tablet by mouth three times daily. metFORMIN (GLUCOPHAGE) 1,000 mg tablet Take 1 tablet by mouth twice daily with meals. No current facility-administered medications for this visit. VISIT NOTE This patient was seen in clinic today to obtain informed consent, to discuss the details of their upcoming operation including the appropriate expectations for perioperative and postoperative care. In addition, preoperative and postoperative relevant prescriptions were provided and explained during this clinic visit. Based on co morbidities, age and gender, DVT risk is low. ERAS protocol discussed. Narcotics sparing postop recovery discussed. The consent discussion included the risks, benefits and anticipated outcomes of the procedure, the risks and benefits of the alternatives to the procedure, and the roles and tasks of the personnel to be involved. Patient is scheduled for laparoscopic possible open sleeve gastrectomy, possible repair of hiatal hernia, possible liver biopsy, and intraoperative EGD. I have discussed the risks of surgery including infection, bleeding including injury to the spleen, the mesenteric blood vessels, conversion in the open, postoperative leak requiring stenting, reoperation, resection or repair, stricture requiring dilation or revision, marginal ulcer requiring treatment including reoperation, and incisional hernias. I have also discussed the incidence of reflux problems after sleeve, the possibility of requiring medications for reflux as well or in the worst case scenario requiring surgery for reflux. I have also discussed regarding unsatisfactory weight loss as well as photograph inspector weight regain. I have also discussed medical complications including urinary tract infections, myocardial infarction, DVT, PE, prolonged ICU stay, and possible postoperative mechanical ventilation and the risk of mortality. I have reviewed with this patient needed nutritional changes, post-operative recovery, and the potential for excess skin following surgery and subsequent weight loss. Risks of nicotine before and after bariatric surgery were also discussed with patient. I have also discussed in detail regarding postoperative hospital stay as well as recovery. The patient had an opportunity to ask additional questions that were answered. The patient expressed that they understood. A consent form was signed today. Prescriptions were explained and provided to the patient. Real Bergman MD [facility] 03-06-2022 Note HNO ID: [id number] Author: Carmen Ramirez RD Service: ? Author Type: Registered Dietitian Type: Progress Notes Filed: 03/06/2022 12:25 PM Note Text: This visit was performed virtually due to the COVID-19 epidemic as an effort to protect patients and minimize exposure. Consent from patient received to conduct visit virtually. This Team Access Model visit is a virtual GROUP encounter. It required patient-provider interaction for the medical decision making as documented below. Patient reports weight (as measured by home scale) of 302 pounds. TOPIC: LIFE STYLE CHANGES: Pre-op weight loss surgery (RYGB): Diet and Exercise PROGRESS: Nutrition Intervention (date of last encounter 08/05/21): Modify type and amount of intake at meals and snacks 1. Practice these: * Eat in this order protein first, vegetable and fruit second and whole grain carbohydrates last. * Separate eating and drinking by 30 minutes * Chew your food 20-30x per bite * Meals should last 30 minutes. 2. Fluids: 64 oz per day minimum No carbonation, no caffeine, no calories, no alcohol. Water, sugar free drink mix, decaf coffee and tea 3. Exercise: 150-250 minutes cardio/aerobic activity/week and 10-20 minutes strength/resistance training 2x per week 4. Protein: 89 g per day. Lean meats, fish, low fat dairy - cottage cheese, Sammarinese yogurt, light yogurt, cheese, ricotta cheese, nuts, peanut butter, beans/legumes. Eat protein first at all meals. 5. Protein shakes: < 200 calories, < 30 g carbohydrates and > 15 g protein 6. Vitamins : Begin looking into Vitamins and Minerals (page 49 of your Bariatric Guide to Surgery Book) - OK to use a bariatric multivitamin: - Bariatric Fusion: multiple options- look on website www.bariatricfusion.com - Celebrate: multiple options- look on website Www.iAcademicteWin the [email or web address] - Procare Health: 1 Multivitamin and Calcium Citrate twice a day (total of 5578-9066 mg/day) * take calcium citrate separately from Multivitamin with iron at least 2 hours apart and 4 hours apart from additional calcium www.Kary[employer].FundedByMe - Bariatric Choice: 4 complete multivitamins (chewables) per day Www.bariatricchoice.com - Bariatric Advantage: 2 Multivitamins and 3 Calcium Citrate Chewables per day * take calcium citrate separately from Multivitamin with iron at least 2 hours apart and 4 hours apart from additional calcium www.bariatricadMobiciousage.FundedByMe B complex with at least 75 mg Thiamine during the 2 weeks. 7. Start the full liquid diet 2 weeks prior to surgery. No solid food. 64 oz per day fluid - 5 Atkins shakes per day 8. Advance your diet as tolerated after surgery. Phase 1-Clear liquid (in hospital only); Phase 2 Full liquids (protein shakes limited to 1/4c per meal, 1c fluids between meals), Phase 3 soft/pureed; high protein foods; Phase 4 high protein foods with added vegetables Begin after starting solid foods: Vitamin/minerals: (2) children's chewable Multivitamin complete (morning) OR (2) adult Centrum Chewable complete multivitamin, Iron supplement 18mg (morning), Vit B12 500 mcg sublingual pill or liquid (morning), and calcium citrate w/Vit D 600 mg at lunch and 600 mg at dinner. Additional 2000 IU Vit D3 daily, B complex with 75-100 mg Thiamine Preop weight goal: 289# CHANGES IN TREATMENT: Patient met goal(s): Yes Diagnosis: has not changed. Allergies: Patient has no known allergies. Medications: Current Outpatient Medications Medication Sig Dispense Refill amLODIPine (NORVASC) 5 mg tablet Take 5 mg by mouth daily at bedtime. propranolol (INDERAL) 20 mg tablet Take 1 tablet by mouth three times daily. 90 tablet 0 metFORMIN (GLUCOPHAGE) 1,000 mg tablet Take 1 tablet by mouth twice daily with meals. 60 tablet 0 No current facility-administered medications for this visit. (currently taking) ; Anthropometrics: Height: Last 1 Encounter Ht Readings: Date: Ht: 08/05/2021 172.7 cm (5' 8 ) Current weight: Last 1 Encounter Wt Readings: Date: Wt: 08/05/2021 132.5 kg (292 lb) There is no height or weight on file to calculate BMI. RMR can't be calculated - Weight unrecorded in last 120 days. Malnutrition Screening Significant unintentional weight loss? No Eating less than 75% of usual intake for more than 2 weeks? No Nutritional status: Educational materials provided: none this visit READINESS TO LEARN Cognitive ability: Alert and oriented Motivation to learn: Interested Family support: Unable to assess - Family not present Instruction provided to: Patient Patient learns best by: Multiple Methods Factors affecting learning: None Physical limitations affecting learning: None Likelihood of Adherence: High Patient participated in preop bariatric surgery shared nutrition appointment. Patient participated actively in group. Patient starts the 2 week full liquid diet today. Protein shake is Atkins. Vitamin B complex with appropriate thiamine (more content not included)... [facility] 03-06-[address] - 03/06/2022 12:25 PM EST Nutrition Intervention 03/06/22: Modify type and amount of intake at meals and snacks 1. Protein goal: 89 grams protein/day 2. Fluid goal: 64 oz per day water. (no calories, no caffeine, no carbonation, no alcohol) 3. Exercise goal: 150-250 minutes of cardio/aerobic exercise/week and include 10-20 minutes of strength/resistance exercise 2-3x/week 4. Practice these: * Eat in this order- protein first, vegetable and fruit second, whole grain carbohydrates last * Separate eating and drinking by 30 minutes * Chew your food 20-30x per bite * Meals should last 30 minutes 5. Start the full liquid diet (2) weeks prior to surgery using 4-5 protein shakes per day, continue a minimum of 64 oz water per day during this time. No solid food. May have sugar free popsicle and sugar free jello. 4 bottles of Slim Fast Advanced Nutrition shakes per day 5 packets of Rocky Breakfast Essentials Light Start mixed with fat free or 1% milk 5 individual cartons of Atkins shakes per day 4 bottles of Boost Glucose Control shakes per day 6. During the 2 week liquid diet before surgery include a daily Super B-Complex vitamin with 75-100 mg Thiamine 7. Advance your diet as tolerated after surgery; refer to page 49 in your guideline booklet. Phase 1-Clear liquid (in hospital only); Phase 2- Full liquids (protein shakes limited to 1/4c per meal, 1c fluids between meals); Phase 3- soft/mushy, high protein foods; Phase 4- high protein foods with added vegetables. Use the Your Guide to Surgery for guidance and meal plans. 8. Vitamins/minerals: Begin after starting solid foods: (2) children's chewable Multivitamin complete (morning) OR (2) adult Centrum Chewable complete multivitamin, Iron supplement 18mg (morning), Vit B12 500 mcg sublingual pill or liquid (morning), and calcium citrate w/Vit D 600 mg at lunch and 600 mg at dinner. Additional 2000 IU Vit D3 daily, B complex with 75-100 mg Thiamine *It is ok to take a combination bariatric vitamin to limit pill volume. Here are a few options to consider: - Bariatric Fusion: 4 Complete Multivitamin chewables per day (2 in the AM, 2 in the PM) www.[email or web address].FundedByMe - Procare Health: 1 Bariatric Multivitamin (capsule or chewable) and 0019-3983 mg Calcium Citrate per day www.Kary[employer].FundedByMe - Bariatric Choice: 1 Bariatric Multivitamin capsule and 7100-4666 mg Calcium Citrate per day OR 4 Complete Multivitamin chewables per day www.bariatricchoice.com - Bariatric Advantage: 2 Multivitamin chewables and 3 Calcium Citrate chewables per day www.bariatricadvantage.com - Celebrate: 2 Multivitamin (chewables) OR 3 Multivitamin (capsules) PLUS 3 Calcium Citrate soft chews per day AND Iron (chewable, capsule, or soft chew for a total of 45-60 mg per day) www.celebrateWin the Planets.FundedByMe - Bariatric Pal: 1 Bariatric Multivitamin capsule and 6239-9623 mg Calcium Citrate per day www.Hurray!.bariatricpal.FundedByMe/mineshio alphonso/bariatric-vitamins Take multivitamin with iron 2 hours apart from calcium citrate, and take each dose of calcium 4 hours apart from each other Nutrition Monitoring & Evaluation: follow pre-op diet and fluid guidelines Criteria: weight check and patient update Need for Follow up: 2 weeks post op documented in this encounter [facility] 03-06-2022 History of Present illness Narrative This visit was performed virtually due to the COVID-19 epidemic as an effort to protect patients and minimize exposure. Consent from patient received to conduct visit virtually. This Team Access Model visit is a virtual GROUP encounter. It required patient-provider interaction for the medical decision making as documented below. Patient reports weight (as measured by home scale) of 302 pounds. TOPIC: LIFE STYLE CHANGES: Pre-op weight loss surgery (RYGB): Diet and Exercise PROGRESS: Nutrition Intervention (date of last encounter 08/05/21): Modify type and amount of intake at meals and snacks 1. Practice these: * Eat in this order protein first, vegetable and fruit second and whole grain carbohydrates last. * Separate eating and drinking by 30 minutes * Chew your food 20-30x per bite * Meals should last 30 minutes. 2. Fluids: 64 oz per day minimum No carbonation, no caffeine, no calories, no alcohol. Water, sugar free drink mix, decaf coffee and tea 3. Exercise: 150-250 minutes cardio/aerobic activity/week and 10-20 minutes strength/resistance training 2x per week 4. Protein: 89 g per day. Lean meats, fish, low fat dairy - cottage cheese, Sammarinese yogurt, light yogurt, cheese, ricotta cheese, nuts, peanut butter, beans/legumes. Eat protein first at all meals. 5. Protein shakes: < 200 calories, < 30 g carbohydrates and > 15 g protein 6. Vitamins : Begin looking into Vitamins and Minerals (page 49 of your Bariatric Guide to Surgery Book) - OK to use a bariatric multivitamin: - Bariatric Fusion: multiple options- look on website www.bariatricfusion.com - Celebrate: multiple options- look on website Www.celebratevitamins.com - Procare Health: 1 Multivitamin and Calcium Citrate twice a day (total of 8797-9379 mg/day) * take calcium citrate separately from Multivitamin with iron at least 2 hours apart and 4 hours apart from additional calcium www.ThinkatureareNoiseFree.FundedByMe - Bariatric Choice: 4 complete multivitamins (chewables) per day Www.bariatricchoice.com - Bariatric Advantage: 2 Multivitamins and 3 Calcium Citrate Chewables per day * take calcium citrate separately from Multivitamin with iron at least 2 hours apart and 4 hours apart from additional calcium www.bariatricadUnderstory.FundedByMe B complex with at least 75 mg Thiamine during the 2 weeks. 7. Start the full liquid diet 2 weeks prior to surgery. No solid food. 64 oz per day fluid - 5 Atkins shakes per day 8. Advance your diet as tolerated after surgery. Phase 1-Clear liquid (in hospital only); Phase 2 Full liquids (protein shakes limited to 1/4c per meal, 1c fluids between meals), Phase 3 soft/pureed; high protein foods; Phase 4 high protein foods with added vegetables Begin after starting solid foods: Vitamin/minerals: (2) children's chewable Multivitamin complete (morning) OR (2) adult Centrum Chewable complete multivitamin, Iron supplement 18mg (morning), Vit B12 500 mcg sublingual pill or liquid (morning), and calcium citrate w/Vit D 600 mg at lunch and 600 mg at dinner. Additional 2000 IU Vit D3 daily, B complex with 75-100 mg Thiamine Preop weight goal: 289# CHANGES IN TREATMENT: Patient met goal(s): Yes Diagnosis: has not changed. Allergies: Patient has no known allergies. Medications: Current Outpatient Medications Medication Sig Dispense Refill amLODIPine (NORVASC) 5 mg tablet Take 5 mg by mouth daily at bedtime. propranolol (INDERAL) 20 mg tablet Take 1 tablet by mouth three times daily. 90 tablet 0 metFORMIN (GLUCOPHAGE) 1,000 mg tablet Take 1 tablet by mouth twice daily with meals. 60 tablet 0 No current facility-administered medications for this visit. (currently taking) ; Anthropometrics: Height: Last 1 Encounter Ht Readings: Date: Ht: 08/05/2021 172.7 cm (5' 8 ) Current weight: Last 1 Encounter Wt Readings: Date: Wt: 08/05/2021 132.5 kg (292 lb) There is no height or weight on file to calculate BMI. RMR can't be calculated - Weight unrecorded in last 120 days. Malnutrition Screening Significant unintentional weight loss? No Eating less than 75% of usual intake for more than 2 weeks? No Nutritional status: Educational materials provided: none this visit READINESS TO LEARN Cognitive ability: Alert and oriented Motivation to learn: Interested Family support: Unable to assess - Family not present Instruction provided to: Patient Patient learns best by: Multiple Methods Factors affecting learning: None Physical limitations affecting learning: None Likelihood of Adherence: High Patient participated in preop bariatric surgery shared nutrition appointment. Patient participated actively in group. Patient starts the 2 week full liquid diet today. Protein shake is Atkins. Vitamin B complex with appropriate thiamine purchased and will start with liquid diet. Fluids include >64 oz water, broth, Gatorade zero. Physical activity includes walking/rest. Nutrition Diagnosis: Overweight/obesity, related to, food/nutrition - related knowledge deficit, as evidenced by BMI above normative standard for age and gender. Nutrition Intervention 03/06/22: Modify type and amount of intake at meals and snacks 1. Protein goal: 89 grams protein/day 2. Fluid goal: 64 oz per day water. (no calories, no caffeine, no carbonation, no alcohol) 3. Exercise goal: 150-250 minutes of cardio/aerobic exercise/week and include 10-20 minutes of strength/resistance exercise 2-3x/week 4. Practice these: * Eat in this order- protein first, vegetable and fruit second, whole grain carbohydrates last * Separate eating and drinking by 30 minutes * Chew your food 20-30x per bite * Meals should last 30 minutes 5. Start the full liquid diet (2) weeks prior to surgery using 4-5 protein shakes per day, continue a minimum of 64 oz water per day during this time. No solid food. May have sugar free popsicle and sugar free jello. 4 bottles of Slim Fast Advanced Nutrition shakes per day 5 packets of Rocky Breakfast Essentials Light Start mixed with fat free or 1% milk 5 individual cartons of Atkins shakes per day 4 bottles of Boost Glucose Control shakes per day 6. During the 2 week liquid diet before surgery include a daily Super B-Complex vitamin with 75-100 mg Thiamine 7. Advance your diet as tolerated after surgery; refer to page 49 in your guideline booklet. Phase 1-Clear liquid (in hospital only); Phase 2- Full liquids (protein shakes limited to 1/4c per meal, 1c fluids between meals); Phase 3- soft/mushy, high protein foods; Phase 4- high protein foods with added vegetables. Use the Your Guide to Surgery for guidance and meal plans. 8. Vitamins/minerals: Begin after starting solid foods: (2) children's chewable Multivitamin complete (morning) OR (2) adult Centrum Chewable complete multivitamin, Iron supplement 18mg (morning), Vit B12 500 mcg sublingual pill or liquid (morning), and calcium citrate w/Vit D 600 mg at lunch and 600 mg at dinner. Additional 2000 IU Vit D3 daily, B complex with 75-100 mg Thiamine *It is ok to take a combination bariatric vitamin to limit pill volume. Here are a few options to consider: - Bariatric Fusion: 4 Complete Multivitamin chewables per day (2 in the AM, 2 in the PM) www.bariatricfusion.FundedByMe - Procare Health: 1 Bariatric Multivitamin (capsule or chewable) and 9942-6826 mg Calcium Citrate per day www.[employer] - Bariatric Choice: 1 Bariatric Multivitamin capsule and 3908-8265 mg Calcium Citrate per day OR 4 Complete Multivitamin chewables per day www.bariatricchoice.FundedByMe - Bariatric Advantage: 2 Multivitamin chewables and 3 Calcium Citrate chewables per day www.bariatricadUnderstory.FundedByMe - Celebrate: 2 Multivitamin (chewables) OR 3 Multivitamin (capsules) PLUS 3 Calcium Citrate soft chews per day AND Iron (chewable, capsule, or soft chew for a total of 45-60 mg per day) www.celebratevitamins.FundedByMe - Bariatric Pal: 1 Bariatric Multivitamin capsule and 6932-4202 mg Calcium Citrate per day www.Triagebariatricpal.com/collectio alphonso/bariatric-vitamins Take multivitamin with iron 2 hours apart from calcium citrate, and take each dose of calcium 4 hours apart from each other Nutrition Monitoring & Evaluation: follow pre-op diet and fluid guidelines Criteria: weight check and patient update Need for Follow up: 2 weeks post op Appointment Start Time: 9:45 AM Appointment End Time: 10:32 Time Spent on Consult: 47 minutes - Group Signed by: Carmen Ramirez RD, BOYD documented in this encounter [facility] 02-13-2022 Miscellaneous Notes BMI SPECIALTY CARE COORDINATION SURGERY APPROVAL CALL Received e-mail confirmation of insurance approval for bariatric surgery.Pre-operative call placed to the patient, this RN spoke with patient and agreed upon a surgery date of March 20 2022. Surgical episode request sent to [facility] surgery scheduling. Patient understands that the surgery type is Sleeve Gastrectomy as approved by insurance. Creatinine level 0.70 Patient instructed to start pre-op 800 calorie total protein liquid diet Atkins (5) daily beginning 2 weeks prior to surgery. - Stop all ASA and NSAID products, [place] 3 fish oil, herbal products such as ginko etc. Stop vitamins EXCEPT B COMPLEX- take this up to the day before surgery - Medication List reviewed and patient will contact prescribing physician regarding use of Metformin, Propranolol, Amlodipine while on pre-operative diet. - Patient denies use of estrogen products . Talk with your prescribing MD if you take the following - should be monitored closely during the preoperative liquid diet with most held at the start of the diet given the . ALL of these medications should AT LEAST be held the day prior to surgery. - Isabel video assigned and Pt will view Drop video during pre-op nurse visit. All questions and concerns addressed and patient verbalized understanding. - Patient case reviewed. All nutrition appointments completed, psychology clearance obtained, surgeon visit and procedure type verified, medical optimization obtained and all testing complete. Con ABO Yes ordered Fredi Sanon RN documented in this encounter [facility] 01-22-2022 History of Present illness Narrative 03/20/2022 is actual surgical date for lap. sleeve gastrectomy. Fredi Sanon RN documented in this encounter [facility] 01-22-2022 Miscellaneous Notes RUQ ultrasound order faxed to [facility] radiology, fax confirmation received. Fredi Sanon RN I spoke to the patient ans she states she wants the gastric sleeve surgery. I advised the patient that she needs to have her right upper quadrant ultrasound done before surgery. Patient requested order be faxed to [facility] in [place], [place], . Fredi Sanon RN documented in this encounter [facility] 08-05-2021 History of Present illness Narrative This visit was performed virtually due to the COVID-19 epidemic as an effort to protect patients and minimize exposure. Consent from patient received to conduct visit virtually. This Team Access Model visit is a virtual GROUP encounter. It required patient-provider interaction for the medical decision making as documented below. Patient reports weight (as measured by home scale) of 292 pounds. TOPIC: LIFE STYLE CHANGES: Pre-op weight loss surgery (RYGB-Dr. Bergman): Diet and Exercise PROGRESS: Nutrition Intervention (date of last encounter 06/28/2021): 1. Read Nutritional Guidelines Section of Your Guide to Surgery by next session [email or web address] [email or web address] 2. Do not skip meals. 3. Use protein shake 1x per day to replace any skipped meals or for breakfast 4. Use the Healthy Plate Method of portion control for lunch and dinner 4 oz lean meat (fish, chicken, pork tenderloin, turkey, seafood, eggs/cheese) 1/2 plate non starchy vegetables (salad, greens, cabbage, spinach, brussels sprouts, broccoli, carrots, celery, peppers, green beans, cauliflower) 1 cup starch/starchy vegetables (corn, peas, beans, winter squash, sweet potato, brown rice, whole grain pasta, whole grain bread products, quinoa) 5. Physical activity: Increase goal of 15-30 minutes 2-3 x week (walking, Encore.fmtube videos) 6. Drink 64 ounces per day water. Fluids should follow these guidelines: No carbonation, no caffeine, no calories, no alcohol. 7. Begin looking into Vitamins and Minerals (page 49 of your Bariatric Guide to Surgery Book) - OK to use a bariatric multivitamin: - Bariatric Fusion: 4 Complete Chewable Multivitamins per day (2 in the AM, 2 in the PM) www.bariatricfusion.FundedByMe - Celebrate: 2 Multivitamins (chewables) OR 3 Multivitamin (capsules) PLUS 3 Calcium Citrate Soft Chews per day and Iron (chewable, capsule, or soft chew for a total of 45-60 mg per day) * Multivitamins DO NOT have iron in them Www.iAcademictevitamins.FundedByMe - iBox[employer] Health: 1 Multivitamin capsule and Calcium Citrate (total of 9388-3623 mg/day) * take calcium citrate separately from Multivitamin with iron at least 2 hours apart and 4 hours apart from additional calcium www.[email or web address] - Bariatric Choice: 4 Multivitamins (chewables) per day [email or web address] - Bariatric Advantage: 2 Multivitamins and 3 Calcium Citrate Chewables per day * take calcium citrate separately from Multivitamin with iron at least 2 hours apart and 4 hours apart from additional calcium [email or web address] Pre-op goal weight: 289 pounds Protein needs: 89 gm per day CHANGES IN TREATMENT: Patient met goal(s): Yes Diagnosis: has not changed. Allergies: Patient has no known allergies. Medications: Current Outpatient Medications Medication Sig Dispense Refill amLODIPine (NORVASC) 5 mg tablet Take 5 mg by mouth daily at bedtime. propranolol (INDERAL) 20 mg tablet Take 1 tablet by mouth three times daily. 90 tablet 0 metFORMIN (GLUCOPHAGE) 1,000 mg tablet Take 1 tablet by mouth twice daily with meals. 60 tablet 0 No current facility-administered medications for this visit. (currently taking) ; Anthropometrics: Height: Last 1 Encounter Ht Readings: Date: Ht: 07/03/2021 172.7 cm (5' 8 ) Current weight: Last 1 Encounter Wt Readings: Date: Wt: 07/03/2021 135.3 kg (298 lb 3.2 oz) Body mass index is 44.4 kg/m . Resting Metabolic Rate: 2091 Malnutrition Screening Significant unintentional weight loss? No Eating less than 75% of usual intake for more than 2 weeks? No Nutritional status: Educational materials provided: none this visit READINESS TO LEARN Cognitive ability: Alert and oriented Motivation to learn: Eager Interested Family support: Unable to assess - Family not present Instruction provided to: Patient Patient learns best by: Multiple Methods Factors affecting learning: None Physical limitations affecting learning: None Likelihood of Adherence: High Patient participated in preop bariatric surgery shared nutrition appointment. Patient participated actively in group. Patient with self reported intentional weight loss 10# since last visit. Patient reports replacing 1-2 meals with Premier or Atkins and following healthy plate for main meal. Fluids include 100+ ounces water and exercise includes walking videos at home, but not at goal; does report busy lifestyle. At end of session, patient is able to identify pre op full liquid diet as well as all post op vitamins and diet phases. Anticipate good adherence to goals. The patient has been thoroughly evaluated and educated on good dietary practices and is capable of following these guidelines pre- and post surgically. From nutrition standpoint, the patient is cleared for weight loss surgery. If the patient desires, she may continue to follow up with the dietitian on a monthly basis until all surgical requirements are met. Nutrition Diagnosis: Overweight/obesity, related to, decreased energy needs, as evidenced by BMI above normative standard for age and gender. Nutrition Intervention: Modify type and amount of intake at meals and snacks 1. Practice these: * Eat in this order protein first, vegetable and fruit second and whole grain carbohydrates last. * Separate eating and drinking by 30 minutes * Chew your food 20-30x per bite * Meals should last 30 minutes. 2. Fluids: 64 oz per day minimum No carbonation, no caffeine, no calories, no alcohol. Water, sugar free drink mix, decaf coffee and tea 3. Exercise: 150-250 minutes cardio/aerobic activity/week and 10-20 minutes strength/resistance training 2x per week 4. Protein: 89 g per day. Lean meats, fish, low fat dairy - cottage cheese, Sammarinese yogurt, light yogurt, cheese, ricotta cheese, nuts, peanut butter, beans/legumes. Eat protein first at all meals. 5. Protein shakes: < 200 calories, < 30 g carbohydrates and > 15 g protein 6. Vitamins : Begin looking into Vitamins and Minerals (page 49 of your Bariatric Guide to Surgery Book) - OK to use a bariatric multivitamin: - Bariatric Fusion: multiple options- look on website www.bariatricfusion.com - Celebrate: multiple options- look on website Www.celebratevitamins.com - [employer]: 1 Multivitamin and Calcium Citrate twice a day (total of 1972-3170 mg/day) * take calcium citrate separately from Multivitamin with iron at least 2 hours apart and 4 hours apart from additional calcium www.[employer] - Bariatric Choice: 4 complete multivitamins (chewables) per day [email or web address] - Bariatric Advantage: 2 Multivitamins and 3 Calcium Citrate Chewables per day * take calcium citrate separately from Multivitamin with iron at least 2 hours apart and 4 hours apart from additional calcium [email or web address].FundedByMe B complex with at least 75 mg Thiamine during the 2 weeks. 7. Start the full liquid diet 2 weeks prior to surgery. No solid food. 64 oz per day fluid - 5 Atkins shakes per day 8. Advance your diet as tolerated after surgery. Phase 1-Clear liquid (in hospital only); Phase 2 Full liquids (protein shakes limited to 1/4c per meal, 1c fluids between meals), Phase 3 soft/pureed; high protein foods; Phase 4 high protein foods with added vegetables Begin after starting solid foods: Vitamin/minerals: (2) children's chewable Multivitamin complete (morning) OR (2) adult Centrum Chewable complete multivitamin, Iron supplement 18mg (morning), Vit B12 500 mcg sublingual pill or liquid (morning), and calcium citrate w/Vit D 600 mg at lunch and 600 mg at dinner. Additional 2000 IU Vit D3 daily, B complex with 75-100 mg Thiamine Preop weight goal: 289# Nutrition Monitoring & Evaluation:1-2# weight loss per week Criteria: weight check Need for Follow up: weight check Appointment Start Time: 8:00 AM Appointment End Time: 8:34 AM Time Spent on Consult: 34 minutes - Group Signed by: Neris Jameson MS,RD,CSOWM,LD documented in this encounter [facility] 05-22-2021 Miscellaneous Notes Please call Di at the [facility]. She has an urgent lab result for this patient. Di needs you to call back for documentation purposes. Case #: [id number] Di can be reached at: [phone] Thank you, Madina documented in this encounter [facility] 05-22-2021 Note HNO ID: [id number] Author: Arnold Haywood MD Service: Urology Author Type: Resident Type: Progress Notes Filed: 05/22/2021 7:24 AM Note Text: [facility] UROLOGY PROGRESS NOTE Name: Johanna Castro Bed: HL SURG OR POOL/HL SURG * Date: May 22, 2021 Urology Service Pager: Please see the [place] Directory ASSESSMENT AND PLAN Johanna Castro is a 35 year old female with history of obesity, DMII, Hashimotos, HTN and large left nephrolithiasis now POD#1 s/p L PCNL, recovering well - d/c roca today, strict I/O, trend SCr, trospium, pyridium and flomax for stent symptoms Pain - Scheduled tylenol, prn toradol, prn oxycodone, IV narcotics for breakthrough Diet - CC diet, mIVF, colace BID, zofran prn Activity - OOB to chair and Ambulate with assistance DVT prophylaxis - PAS Stockings on and Pharmacologic DVT prophylaxis contraindicated due to bleeding risk Antibiotics - Perioperative antibiotics - Amp/Gent, Afebrile, mild arslan-op leukocytosis; Tissue stone cx with rare GPCs - will plan for d/c with ab Discharge planning - Anticipate d/c today Active Problems Anemia: Chronic - Baseline Hb ~11, CTM, outpatient workup Diabetes: Type II - Continue metformin, accuchecks, SSI Morbidly Obese (BMI 40 or >) No weight on file for this encounter. - OOB/ambulate, CC diet To be discussed with staff Arnold Haywood MD PGY-5 Urology Resident Pager [phone] After 5pm and on weekends, please page urology environmental conservation professor located in the directory ([phone]) SUBJECTIVE -No acute events overnight -Pain: Controlled -Tolerating diet -N/V: No -Ambulating: No -Stent related bladder pain/spasms -Excellent UOP and urine clear this am Objective Vital Signs BP 136/86 Pulse 98 Temp 36.7 ?C (98.1 ?F) (Oral) Resp 16 LMP 05/08/2021 SpO2 93% There is no height or weight on file to calculate BMI. Input and Output Intake/Output Summary (Last 24 hours) at 05/22/2021 0718 Last data filed at 05/22/2021 0400 Gross per 24 hour Intake 3065 ml Output 3170 ml Net -105 ml Urine output Roca - 3150cc Drains None Physical Exam General: Well-appearing, no acute distress CV: RRR Lungs: Breathing comfortably on RA Abdomen: Obese, soft, non-tender, non-distended Wound: Left flank incision c/d/i with primapore in place : Roca catheter present draining clear urine Extremities: Normal. No cyanosis, clubbing, or edema Recent Labs 05/22/21 0611 05/22/21 0505 05/21/21 1030 05/21/21 0600 WBC 12.67* -- 10.53 9.26 HB 9.4* -- 10.8* 10.8* HCT 30.6* -- 34.0* 33.8* PLT 255 -- 329 307 NA -- 134* 132* 136 K -- 4.0 4.0 3.7 CHLOR -- 100 99 99 CO2 -- 22 19* 21* BUN -- 9 12 12 CREAT -- 0.77 0.80 0.78 GLUC -- 213* 245* 181* Imaging Post-op CXR (05/21/21): IMPRESSION: ? Lines, tubes, and devices: None. ? Lungs and pleura: Lower lung volumes present on this study when compared to the prior study with basilar and right perihilar atelectasis present. No gross edema or pneumothorax. ? Cardiomediastinal silhouette: Stable cardiomediastinal silhouette. Arnold Haywood MD Personal Pager: [phone] For weekend or after hours issues please page the on-call urology pager in the [facility] 05-21-2021 Note HNO ID: [id number] Author: Bc Domínguez APRN.CONFIGURATION MANAGEMENT ARCHITECT Service: Nursing Author Type: Nurse Air Operations Manager Type: Anesthesia Procedure Notes Filed: 05/21/2021 8:15 AM Note Text: ANESTHESIOLOGY PROCEDURE NOTE Airway General Information Procedure Start Time/Medication Administration: 05/21/2021 7:43 AM Patient location during procedure: OR Timeout Performed Pre-procedure: timeout performed Consent Obtained: Yes Patient identity confirmed: arm band and patient Staffing Performed by: other anesthesia staff Indications and Patient Condition Preoxygenated: yes Patient position: sniffing Difficult Mask: No Indications for airway management: anesthesia anesthesia circuit Method: asleep Final Airway Details Final airway type: endotracheal airway Final Endotracheal Airway: ETT Cuffed: yes Successful intubation technique: direct laryngoscopy Endotracheal tube insertion site: oral Blade: Marshal Blade size: #3 ETT size (mm): 7.5 Measured from: lips Measurement (cm): 23 Placement verified by: chest auscultation and capnometry Cormack-Lehane Classification: grade I - full view of glottis Number of attempts at approach: 2 Ventilation between attempts: BVM Failed airway: no Airway not difficult Comments Intubation by Jaci Lora, resident. 1st attempt unable to pass vocal cords. BVM ventilate while waiting for patient paralysis. SIGNATURE: Bc Domínguez APRN.CONFIGURATION MANAGEMENT ARCHITECT PATIENT NAME: Johanna Castro DATE: May 21, 2021 TIME: 8:13 AM CSN: [id number] [facility] 05-20-[address] Francois, The patient's COVID (negative) results have been scanned into her chart. Thank you, Madina documented in this encounter [facility] 05-04-2021 Evaluation note Encounter Date Diagnosis Assessment Notes Apr, Acute cystitis with hematuria (ICD-10 - N30.01) Discussed diagnosis with patient. Will treat patient for UTI. Instructed patient to take antibiotic as prescribed, take with food, complete entire course of therapy even if feeling better. Allergies and recent antibiotic use was reviewed with patient. Advised patient culture was sent today and we will call with her results if antibiotic needs changed. Patient instructed to push fluids. May take pyridium for discomfort as prescribed. Patient symptoms should improve in the next 48 hours, if symptoms persist follow up with PCP or UC. Immediate eval by ER if back or flank pain, fever, chills, N/V, or any other concerning symptoms. Patient verbalizes understanding and is agreeable to treatment plan Apr, Dysuria (ICD-10 - R30.0) [facility] Other Evaluation note* Diagnosis Diabetes mellitus type 2 in obese (HCC)- Primary Type II or unspecified type diabetes mellitus without mention of complication, not stated as uncontrolled Dietary counseling and surveillance Dietary surveillance and counseling [facility] Diagnosis Morbid obesity (HCC)- Primary Morbid obesity Preoperative examination Preoperative examination, unspecified Morbid obesity (HCC) Morbid obesity Preoperative examination Preoperative examination, unspecified [facility]* Diagnosis Obesity, Class III, BMI 40-49.9 (morbid obesity) (HCC)- Primary Morbid obesity Dietary counseling and surveillance Dietary surveillance and counseling Morbid obesity (HCC) Morbid obesity Preoperative examination Preoperative examination, unspecified [facility]* Diagnosis S/P laparoscopic sleeve gastrectomy- Primary Bariatric surgery status [facility] Diagnosis S/P laparoscopic sleeve gastrectomy- Primary Bariatric surgery status Dietary counseling and surveillance Dietary surveillance and counseling Diabetes mellitus type 2 in obese (HCC) Type II or unspecified type diabetes mellitus without mention of complication, not stated as uncontrolled [facility] Diagnosis Encounter for surgical aftercare following surgery of digestive system- Primary Aftercare following surgery of the teeth, oral cavity and digestive system, NEC S/P laparoscopic sleeve gastrectomy Bariatric surgery status Postoperative malabsorption Other and unspecified postsurgical nonabsorption Class 2 severe obesity with serious comorbidity and body mass index (BMI) of 37.0 to 37.9 in adult, unspecified obesity type (HCC) documented in this encounter [facility] general Narrative - Reported* Type Description Date Medical History hypertension Surgical History c section Surgical History appendectomy Surgical History D&C x3 [facility] Other Reason for referral (narrative)* Diagnostic Procedure Only (Routine) - Pending Review Specialty Diagnoses / Procedures Referred By Natali mack Referred To Contact US IMAGING Diagnoses Morbid obesity (HCC) Preoperative examination Procedures US ABD RT UPPER QUADRANT US ABDOMINAL REAL TIME W/IMAGE LIMITED Neida Gaines APRN.[employer] [address] [place] [address] Us Imaging Referral ID Status Reason Start Date Expiration Date Visits Requested Visits Authorized [id number] Pending Review Auto-Generat ed Referral 2 03/15/2023 1 1 * Transition of Care (Routine) - Ref Not Required Specialty Diagnoses / Procedures Referred By Contac t Referred To Contact Diagnoses Morbid obesity (HCC) Preoperative examination Procedures IN PERSON CONSULT TO PACC Neida Gaines APRN.CNP [address] [place] [address] Referral ID Status Reason Start Date Expiration Date Visits Requested Visits Authorized [id number] Ref Not Required PCP Requested Referral 2 05/14/2022 1 1 [facility] Advance Directives Advance Directive Response Recorded Date/ Time Advance Directives No February 20, 2020 10:01pm Documents on File Type Date Recorded Patient Bilingual Sales Consultant Expl anation Advance Directive(s) 05/07/2021 10:17 AM Advance Directive(s) 09/28/2020 1:06 AM Advance Directive(s) 02/25/2020 2:49 AM Chief Complaint and Reason for Visit Chief Complaint Left Kidney Stone Left Kidney Stone Assessments No Assessments Information Available Summary Purpose Family History No Family History Records Found Health Concerns Infection Onset Date Last Indicated Resolved Time COVID-19 Rule-Out 03/21/2022 03/21/2022 03/21/2022 1:47 AM EST Additional Source Comments INFORMATION SOURCE (unrecogn ized section and content) DATE CREATED AUTHOR [facility]/14/2020 [facility] DATE CREATED AUTHOR AUTHOR'S ORGANIZ ATION 05/28/2021 [facility] DATE CREATED AUTHOR AUTHOR'S ORGANIZ ATION 07/08/2021 [facility] DATE CREATED AUTHOR AUTHOR'S ORGANIZ ATION 08/23/2021 [facility] DATE CREATED AUTHOR AUTHOR'S ORGANIZ ATION 03/25/2022 [facility] DATE CREATED AUTHOR AUTHOR'S ORGANIZ ATION 09/02/2022 [facility] DATE CREATED AUTHOR AUTHOR'S ORGANIZ ATION 02/21/2023 [facility] DATE CREATED AUTHOR AUTHOR'S ORGANIZ ATION 10/13/[address] [facility] EPIC Source Comments (unrecognize d section and content) In the event this informatio n is protected by the Federal Confidentiality of Alcohol and Drug Abuse Patient Records regulations: The Federal rules restrict any use of the information to criminally investigate or prosecute any alcohol or drug abuse patient.[facility] the event this information is protected by the Federal Confidentiality of Alcohol and Drug Abuse Patient Records regulations: The Federal rules restrict any use of the information to criminally investigate or prosecute any alcohol or drug abuse patient.[facility] the event this information is protected by the Federal Confidentiality of Alcohol and Drug Abuse Patient Records regulations: The Federal rules restrict any use of the information to criminally investigate or prosecute any alcohol or drug abuse patient.[facility] the event this information is protected by the Federal Confidentiality of Alcohol and Drug Abuse Patient Records regulations: The Federal rules restrict any use of the information to criminally investigate or prosecute any alcohol or drug abuse patient.[facility] the event this information is protected by the Federal Confidentiality of Alcohol and Drug Abuse Patient Records regulations: The Federal rules restrict any use of the information to criminally investigate or prosecute any alcohol or drug abuse patient.[facility] the event this information is protected by the Federal Confidentiality of Alcohol and Drug Abuse Patient Records regulations: The Federal rules restrict any use of the information to criminally investigate or prosecute any alcohol or drug abuse patient.[facility] the event this information is protected by the Federal Confidentiality of Alcohol and Drug Abuse Patient Records regulations: The Federal rules restrict any use of the information to criminally investigate or prosecute any alcohol or drug abuse patient.[facility] the event this information is protected by the Federal Confidentiality of Alcohol and Drug Abuse Patient Records regulations: The Federal rules restrict any use of the information to criminally investigate or prosecute any alcohol or drug abuse patient.[facility] the event this information is protected by the Federal Confidentiality of Alcohol and Drug Abuse Patient Records regulations: The Federal rules restrict any use of the information to criminally investigate or prosecute any alcohol or drug abuse patient.[facility] the event this information is protected by the Federal Confidentiality of Alcohol and Drug Abuse Patient Records regulations: The Federal rules restrict any use of the information to criminally investigate or prosecute any alcohol or drug abuse patient.[facility] the event this information is protected by the Federal Confidentiality of Alcohol and Drug Abuse Patient Records regulations: The Federal rules restrict any use of the information to criminally investigate or prosecute any alcohol or drug abuse patient.[facility] the event this information is protected by the Federal Confidentiality of Alcohol and Drug Abuse Patient Records regulations: The Federal rules restrict any use of the information to criminally investigate or prosecute any alcohol or drug abuse patient.[facility] the event this information is protected by the Federal Confidentiality of Alcohol and Drug Abuse Patient Records regulations: The Federal rules restrict any use of the information to criminally investigate or prosecute any alcohol or drug abuse patient.[facility] the event this information is protected by the Federal Confidentiality of Alcohol and Drug Abuse Patient Records regulations: The Federal rules restrict any use of the information to criminally investigate or prosecute any alcohol or drug abuse patient.[facility] the event this information is protected by the Federal Confidentiality of Alcohol and Drug Abuse Patient Records regulations: The Federal rules restrict any use of the information to criminally investigate or prosecute any alcohol or drug abuse patient.[facility] the event this information is protected by the Federal Confidentiality of Alcohol and Drug Abuse Patient Records regulations: The Federal rules restrict any use of the information to criminally investigate or prosecute any alcohol or drug abuse patient.[facility] the event this information is protected by the Federal Confidentiality of Alcohol and Drug Abuse Patient Records regulations: The Federal rules restrict any use of the information to criminally investigate or prosecute any alcohol or drug abuse patient.[facility] the event this information is protected by the Federal Confidentiality of Alcohol and Drug Abuse Patient Records regulations: The Federal rules restrict any use of the information to criminally investigate or prosecute any alcohol or drug abuse patient.[facility] the event this information is protected by the Federal Confidentiality of Alcohol and Drug Abuse Patient Records regulations: The Federal rules restrict any use of the information to criminally investigate or prosecute any alcohol or drug abuse patient.[facility] Reason for Visit (unrecogniz ed section and content) Reason Onset Date Comments Patient Education 08/05/2021 Reassessment 08/05/2021 Reason Comments Surgery Preference Reason Comments Schedule Surgery LSG Reason Comments Thursday03/02/2022 PSEUDO DATE LSG 03/20/2022 LSG Reason Onset Date Comments Patient Education 03/06/2022 Reassessment 03/06/2022 Reason Comments Pre-Op Teaching LSG Reason Comments Post Op Reason Comments Post Op S/p sleeve gastrecto my 03/20/22 Reason Onset Date Comments Patient Education 04/04/2022 Reassessment 04/04/2022 Reason Comments Results COVID Reason Comments Medication Problem Reason Comments Post Op 3 month Follow up Reason Comments Misc. Labs [facility] Care Teams (unrecognized sec tion and content) Visitor Information Assistant Relationship Specialty Start Date End Date KarenRoselyn grover, [employer]TER [address] [place] [address] PCP - General Family Practice [facility]07[facility] [address] [place] [address] Referring 11/23/20 Visitor Information Assistant Relationship Specialty Start Date End Date Roselyn Ramirez, [employer] [address] [place] [address] PCP - General Family Medicine 05/07/21 [facility] Roselyn [address] [place] [address] Referring 11/23/20 Visitor Information Assistant Relationship Specialty Start Date End Date Roselyn Ramirez, [employer] [address] [place] [address] PCP - General Family Medicine 05/07/21 [facility] [address] [place] [facility] [place] [address] Referring 11/23/20 Visitor Information Assistant Relationship Specialty Start Date End Date Roselyn Ramirez, [employer]TER [address] [place] [address] PCP - General Family Medicine 05/07/21 [facility], Roselyn [address] [place] [facility] [address] Referring 11/23/20 Visitor Information Assistant Relationship Specialty Start Date End Date Roselyn Ramirez, [employer] [address] [place] [address] PCP - General Family Medicine 05/07/21 [facility] [address] [place] [facility] [place] [address] Referring 11/23/20 Visitor Information Assistant Relationship Specialty Start Date End Date Roselyn Ramirez, [employer] C[employer]TER [address] [place] [address] PCP - General Family Medicine 05/07/21 [facility] [address] [place] [facility] [address] Referring 11/23/20 Visitor Information Assistant Relationship Specialty Start Date End Date Roselyn Ramirez [employer] [address] [place] [address] PCP - General Family Medicine 05/07/21 [facility] [address] [place] [facility] [address] Referring 11/23/20 Visitor Information Assistant Relationship Specialty Start Date End Date Roselyn Ramirez, [employer] C[employer] [address] [place] [address] PCP - General Family Medicine 05/07/21 JanessaJosie davisa [address] [place] [facility] [address] Referring 11/23/20 Visitor Information Assistant Relationship Specialty Start Date End Date Roselyn Ramirez, [employer] C[employer] [address] [place] [address] PCP - General Family Medicine 05/07/21 [facility] [address] [place] [facility] [address] Referring 11/23/20 Visitor Information Assistant Relationship Specialty Start Date End Date Roselyn Ramirez, [employer] C[employer]TER [address] [place] [address] PCP - General Family Medicine 05/07/21 [facility] [address] [place] [facility] [address] Referring 11/23/20 Visitor Information Assistant Relationship Specialty Start Date End Date Roselyn Raimrez, [employer] C[employer]TER [address] [place] [address] PCP - General Family Medicine 05/07/21 [facility] [address] [place] [facility] [address] Referring 11/23/20 Visitor Information Assistant Relationship Specialty Start Date End Date Roselyn Ramirez, [employer] C[employer]TER [address] [place] [address] PCP - General Family Medicine 05/07/21 Roselyn Moffett [address] [place] [address] Referring 11/23/20 Visitor Information Assistant Relationship Specialty Start Date End Date Amish Jernigan MD [address] [place] [address] PCP - General Family Medicine 06/15/23 Roselyn Ramirez NP [address] [place] [address] Nurse Practitioner Family Medicine 06/15/23 FOR RECORDS PERTAINING TO PATIENTS WHO ARE OR HAVE BEEN ENROLLED IN A CHEMICAL DEPENDENCY/SUBSTANCEABUSE PROGRAM, SOME INFORMATION MAY BE OMITTED. This clinical summary was aggregated from multiple sources. Caution should be exercised in using it in the provision of clinical care. This summary normalizes information from multiple sources, and as a consequence, information in this document may materially change the coding, format and clinical context of patient data. In addition, data may be omitted in some cases. CLINICAL DECISIONS SHOULD BE BASED ON THE PRIMARY CLINICAL RECORDS. [facility] provides no warranty or guarantee of the accuracy or completeness of information in this document.
[2024-05-25 11:37] LABS: Basophils Percent Auto 0.6 % (0.2-2.0); Eosinophils Absolute Auto 0.1 10^3/uL (0.0-0.7); Eosinophils Percent Auto 1.2 % (0.9-7.0); Hematocrit 38.4 % (36.0-48.0); Hemoglobin 12.7 g/dL (12.0-16.0); Immature Granulocytes Abs Auto 0.02 10^3/uL (0.00-0.03); Immature Granulocytes Pct Auto 0.3 % (0.0-0.5); Lymphocytes Absolute Auto 2.2 10^3/uL (1.2-3.8); Lymphocytes Percent Auto 34.1 % (20.5-60.0); Mean Corpuscular HGB Conc 33.1 g/dL (29.9-35.2); Mean Corpuscular Hemoglobin 29.7 pg (26.7-34.0); Mean Corpuscular Volume 89.9 fL (81.0-99.0); Mean Platelet Volume 11.4 fL (9.5-13.5); Monocytes Absolute Auto 0.3 10^3/uL (0.3-0.8); Monocytes Percent Auto 4.3 % (1.7-12.0); Neutrophils Absolute Auto 3.9 10^3/uL (1.4-6.5); Neutrophils Percent Auto 59.5 % (43.0-75.0); Platelet Count 263 10^3/uL (150-450); Red Blood Count 4.27 10^6/uL (4.20-5.40); Red Cell Distribution Width 12.7 % (11.0-15.0); White Blood Count 6.6 10^3/uL (4.0-11.0)
[2024-05-25 11:39] LABS: Bilirubin Urine NEGATIVE (NEGATIVE); Blood Urine NEGATIVE (NEGATIVE); Clarity Urine CLEAR (CLEAR); Color Urine LT. YELLOW (YELLOW); Glucose Urine UA NEGATIVE (NEGATIVE); Ketones Urine NEGATIVE (NEGATIVE); Leukocyte Esterase Urine SMALL (NEGATIVE); Nitrite Urine POSITIVE (NEGATIVE); Protein Urine NEGATIVE (NEG/TRACE); Specific Gravity Urine 1.025 (1.005-1.025); Urobilinogen Urine 0.2 EU/dL (0.2-1.0)
[2024-05-25 11:40] LABS: Urine Microscopic Indicated YES
[2024-05-25 11:46] LABS: Creatinine Urine Random 155.72 mg/dL (20.00-300.00); Microalbum Creatinine Ratio Ur 20.5 mg/g (0.0-29.9); Microalbumin Urine Random 3.2 mg/dL (<=30.0)
[2024-05-25 11:54] LABS: Bacteria Urine MODERATE #/HPF (NONE SEEN); Cast Seen? NONE SEEN #/LPF (NONE SEEN); Crystals Seen? None Seen #/HPF (None Seen); Mucus Urine TRACE (NONE SEEN); RBC Urine 0-2 #/HPF (0-2); Squamous Epithelial Cell Urine RARE #/LPF (NONE/RARE)
[2024-05-25 11:58] LABS: Percent Iron Saturation 12.9 %
[2024-05-25 12:05] LABS: Alanine Aminotransferase 20 U/L (14-59); Albumin Globulin Ratio 1.1; Albumin Level 3.7 g/dL (3.4-5.0); Alkaline Phosphatase 60 U/L (46-116); Anion Gap 11.8; Aspartate Amino Transferase 11 U/L (15-37); Bilirubin Total 0.4 mg/dL (0.2-1.0); Calcium 8.5 mg/dL (8.5-10.1); Chloride 105 mmol/L (98-107); Cholesterol 139 mg/dL (<=200); Estimated GFR (African America >60 (>=60 mL/min/1.73m^2); Estimated GFR (Non-African Ame >60 (>=60 mL/min/1.73m^2); Globulin 3.3 g/dL; Glucose 129 mg/dL (74-106); HDL Cholesterol 47 mg/dL (40-60); Potassium 3.8 mmol/L (3.5-5.1); Sodium 142 mmol/L (136-145); Thyroid Stimulating Hormone 1.062 uIU/mL (0.358-3.740); Triglycerides 159 mg/dL (<=150); VLDL CHOLESTEROL 31.8 mg/dL
[2024-05-25 12:29] LABS: Free T4 1.09 ng/dL (0.76-1.46)
[2024-05-26 08:10] LABS: Transferrin 345 mg/dL (192-364); Vitamin B12 438 pg/mL (232-1245)
== END 2024-05-25 11:14 | disposition home or self-care (01) ==
LOC: LAB 11:14
PROVIDERS: PCP Nurse Practitioner; Visit Provider Nurse Practitioner
DX: E06.3 Autoimmune thyroiditis (principal); Z98.84 Bariatric surgery status; E55.9 Vitamin D deficiency, unspecified; E66.01 Morbid (severe) obesity due to excess calories; I10 Essential (primary) hypertension; Z86.39 Personal history of other endocrine, nutritional and metabolic disease; N30.00 Acute cystitis without hematuria
CPT/HCPCS: 36415; 80053; 80061; 81001; 82043; 82306; 82570; 82607; 83540; 83550; 84439; 84443; 84466; 85025; 87086; 87150; 87186

== ENCOUNTER 2025-03-23 15:45 | Outpatient (OUT) | payer OTHER, SELFPAY ==
[2025-03-23 16:25] LABS: Hematocrit 39.7 % (36.0-48.0); Hemoglobin 13.5 g/dL (12.0-16.0); Immature Granulocytes Abs Auto 0.03 10^3/uL (0.00-0.03); Immature Granulocytes Pct Auto 0.3 % (0.0-0.5); Lymphocytes Absolute Auto 3.4 10^3/uL (1.2-3.8); Mean Corpuscular HGB Conc 34.0 g/dL (29.9-35.2); Mean Corpuscular Hemoglobin 29.4 pg (26.7-34.0); Mean Corpuscular Volume 86.5 fL (81.0-99.0); Platelet Count 286 10^3/uL (150-450); Red Blood Count 4.59 10^6/uL (4.20-5.40); White Blood Count 11.4 10^3/uL (4.0-11.0)
[2025-03-23 16:28] LABS: Glucose Urine UA NEGATIVE (NEGATIVE)
[2025-03-23 16:37] LABS: Microalbum Creatinine Ratio Ur 26.4 mg/g (0.0-29.9)
[2025-03-23 16:46] LABS: Cast Seen? NONE SEEN #/LPF (NONE SEEN); Crystals Seen? None Seen #/HPF (None Seen)
[2025-03-23 16:52] LABS: Alanine Aminotransferase 24 U/L (14-59); Albumin Globulin Ratio 1.0; Albumin Level 3.9 g/dL (3.4-5.0); Alkaline Phosphatase 86 U/L (46-116); Anion Gap 14.6; Aspartate Amino Transferase 14 U/L (15-37); Blood Urea Nitrogen 13.0 mg/dL (7.0-18.0); Calcium 8.7 mg/dL (8.5-10.1); Carbon Dioxide 24.0 mmol/L (21.0-32.0); Chloride 105 mmol/L (98-107); Cholesterol 138 mg/dL (<=200); Estimated GFR (African America >60 (>=60 mL/min/1.73m^2); Estimated GFR (Non-African Ame >60 (>=60 mL/min/1.73m^2); Free T3 2.69 pg/mL (2.18-3.98); Globulin 3.9 g/dL; Glucose 105 mg/dL (74-106); HDL Cholesterol 46 mg/dL (40-60); Potassium 3.6 mmol/L (3.5-5.1); Sodium 140 mmol/L (136-145); Thyroid Stimulating Hormone 1.551 uIU/mL (0.358-3.740); Total Protein 7.8 g/dL (6.4-8.2); Triglycerides 212 mg/dL (<=150); VLDL CHOLESTEROL 42.4 mg/dL
[2025-03-23 17:10] LABS: Iron 105.0 ug/dL (50.0-170.0); Percent Iron Saturation 21.0 %; Total Iron Binding Capacity 501.0 ug/dL (250.0-450.0)
[2025-03-23 17:33] LABS: Ferritin 16.0 ng/mL (8.0-252.0); Folate 11.80 ng/mL (8.60-58.90)
[2025-03-25 04:11] LABS: Vitamin B12 468 pg/mL (232-1245)
[2025-03-25 08:09] LABS: Transferrin 423 mg/dL (192-364)
== END 2025-03-23 15:46 | disposition home or self-care (01) ==
LOC: LAB 15:46
PROVIDERS: PCP Nurse Practitioner; Visit Provider Nurse Practitioner
DX: E55.9 Vitamin D deficiency, unspecified (principal); Z98.84 Bariatric surgery status; F41.1 Generalized anxiety disorder; F41.0 Panic disorder [episodic paroxysmal anxiety]; Z86.39 Personal history of other endocrine, nutritional and metabolic disease; K76.0 Fatty (change of) liver, not elsewhere classified
CPT/HCPCS: 36415; 80053; 80061; 81001; 82043; 82306; 82570; 82607; 82728; 82746; 83036; 83540; 83550; 84439; 84443; 84466; 84481; 85025